=== PATIENT | female | born 1975 | race Two or more races ===

== ENCOUNTER 2021-01-21 10:24 | Outpatient (REF) | payer BC, SELFPAY ==
[2021-01-21 11:21] LABS: MANUAL DIFF FLAG NO
[2021-01-21 11:27] LABS: Basophils Percent Auto 0.3 % (0-2); Eosinophils Absolute Auto 0.1 X10*3/uL (0.0-0.4); Eosinophils Percent Auto 1.4 % (0-4); Hematocrit 39.5 % (37-47); Hemoglobin 12.4 g/dl (12.0-16.0); Imm Gran Abs Auto 0.02 X10*3/uL (0.00-0.03); Imm Gran Pct Auto 0.3 % (0.0-0.4); Lymphocytes Percent Auto 27.9 % (20-40); Mean Corpuscular HGB Conc 31.4 g/dl (31.0-35.0); Mean Corpuscular Volume 92.5 fL (80-98); Monocytes Absolute Auto 0.5 X10*3/uL (0.1-1.2); Monocytes Percent Auto 7.1 % (2-11); Neutrophils Absolute Auto 4.6 X10*3/uL (2.0-8.3); Platelet Count 368 X10*3/uL (160-400); Red Blood Count 4.27 X10*6/uL (4.20-5.50); Red Cell Distribution Width 13.5 % (11.0-16.0); White Blood Count 7.3 X10*3/uL (4.8-10.8)
[2021-01-21 11:38] LABS: Estimated Average Glucose 91 mg/dL; Hemoglobin A1c % 4.8 %
[2021-01-21 11:53] LABS: Alanine Aminotransferase 12 U/L (0-31); Albumin Level 4.3 g/dL (3.5-5.0); Alkaline Phosphatase 89 U/L (39-117); Anion Gap 11 (12-20); Aspartate Amino Transferase 18 U/L (5-31); Bilirubin Direct 0.2 mg/dL (0.0-0.5); Bilirubin Total 0.7 mg/dL (0.0-1.0); Blood Urea Nitrogen 20 mg/dL (9-16); Calcium 9.2 mg/dL (8.4-10.2); Carbon Dioxide 30 mmol/L (22-29); Chloride 105 mmol/L (96-108); Cholesterol 238 mg/dL; Estimated Glomerular Filt Rate > 60; Glucose Fasting 86 mg/dL (60-99); HDL Cholesterol 65 mg/dL; LDL Cholesterol Calculated 155 mg/dl; Potassium 4.9 mmol/L (3.3-5.1); Sodium 141 mmol/L (135-145); Total Protein 7.7 g/dL (6.5-8.0); Triglycerides 90 mg/dL
[2021-01-21 11:54] LABS: C Reactive Protein 0.64 mg/dL (< or = 0.50); Iron 86 mcg/dL (30-160); Percent Iron Saturation 28 % (15-50); Total Iron Binding Capacity 303 mcg/dL (228-428); Unsaturated Iron Binding 217 ug/dL
[2021-01-21 11:57] LABS: Rheumatoid Factor < 15.0 IU/mL (<15.0)
[2021-01-21 12:11] LABS: Erythrocyte Sedimentation Rate 23 MM/HR (0-20)
[2021-01-21 12:13] LABS: HIV AB/AG Nonreactive (Nonreactive); HIV Num 1 0.07 S/CO (0.00-0.99)
[2021-01-21 12:15] LABS: HBsAGNum1 0.12 S/CO (0.00-0.99); Hepatitis B Surface Antigen Negative (Negative); Thyroid Stimulating Hormone 2.09 uIU/mL (0.32-4.0); Vitamin D 25-OH Total 23.9 ng/mL (>30)
[2021-01-21 12:16] LABS: Syphilis Screen Nonreactive (Nonreactive)
[2021-01-21 12:19] LABS: HBS Num1 0.02 mIU/mL (0-7.99); ~Hepatitis B Surface Antibody NONREACTIVE (Nonreactive)
[2021-01-21 12:20] LABS: ~HepC Num1 0.13 S/CO (0.00-0.79); ~Hepatitis C Antibody Nonreactive (Nonreactive)
[2021-01-21 12:21] LABS: Ferritin 39 ng/mL (10-250)
[2021-01-21 12:26] LABS: Folate 17.3 ng/mL (> or = 4.0); Vitamin B12 332 pg/mL (200-900)
[2021-01-22 09:21] LABS: CT PCR NOT DETECTED (Not Detect.); NG PCR NOT DETECTED (Not Detect.)
[2021-01-22 15:52] LABS: Follicle Stimulating Hormone 101.6 mIU/mL; Lutenizing Hormone 69.1 mIU/mL
[2021-01-22 19:22] LABS: Anti Nuclear Antibody Screen NEGATIVE (NEGATIVE)
== END 2021-01-21 10:25 | disposition home or self-care (01) ==
LOC: HO.LAB 10:24
PROVIDERS: PCP Family Medicine; Visit Provider Internal Medicine
DX: R53.83 Other fatigue (principal); D64.9 Anemia, unspecified; K21.9 Gastro-esophageal reflux disease without esophagitis; K59.00 Constipation, unspecified; M79.604 Pain in right leg; M79.605 Pain in left leg
CPT/HCPCS: 36415; 80048; 80061; 80076; 82306; 82550; 82607; 82728; 82746; 83001; 83002; 83036; 83540; 84439; 84443; 85025; 85652; 86038; 86039; 86140; 86431; 86706; 86780; 86803; 87340; 87389; 87491; 87591

== ENCOUNTER 2021-02-15 13:12 | Outpatient (REF) | payer BC, SELFPAY ==
--- NOTE | ~2021-02-15 | XR_ITS ---
EXAMINATION: LEFT HIP COMPLETE. LUMBAR SPINE 2 VIEWS CLINICAL INFORMATION: Pain COMPARISON: 04/28/2016 TECHNIQUE: 2 views of the left hip. 2 views of the lumbar spine. FINDINGS: Left hip: No erosive change, fracture, dislocation or destructive process. Lumbar spine: No evidence of fracture or destructive process or alignment abnormality. Vertebral body heights are preserved. Incidental note is made of surgical clips in the right upper quadrant and overlying the pelvis. XR/XR lumbar spine 2-3V IMPRESSION: No acute abnormalities.
--- NOTE | ~2021-02-15 | XR_ITS ---
EXAMINATION: LEFT HIP COMPLETE. LUMBAR SPINE 2 VIEWS CLINICAL INFORMATION: Pain COMPARISON: 04/28/2016 TECHNIQUE: 2 views of the left hip. 2 views of the lumbar spine. FINDINGS: Left hip: No erosive change, fracture, dislocation or destructive process. Lumbar spine: No evidence of fracture or destructive process or alignment abnormality. Vertebral body heights are preserved. Incidental note is made of surgical clips in the right upper quadrant and overlying the pelvis. XR/XR hip LT min 2V IMPRESSION: No acute abnormalities.
== END 2021-02-15 13:13 | disposition home or self-care (01) ==
LOC: HO.XRAY 13:12
PROVIDERS: PCP Family Medicine; Visit Provider Family Medicine
DX: M54.42 Lumbago with sciatica, left side (principal)
CPT/HCPCS: 72100; 73502

== ENCOUNTER 2021-03-30 13:07 | Outpatient (REF) | payer BC, SELFPAY ==
[2021-03-30 15:53] LABS: TSH reflex Free T4 1.46 uIU/mL (0.32-4.0)
[2021-03-31 09:01] LABS: CT PCR NOT DETECTED (Not Detect.); NG PCR NOT DETECTED (Not Detect.)
[2021-03-31 12:07] LABS: Follicle Stimulating Hormone 43.4 mIU/mL; Lutenizing Hormone 44.3 mIU/mL; Prolactin 5.9 ng/mL
[2021-04-01 20:56] LABS: HPV mRNA E6/E7 rflx Not Detected (Not Detected)
== END 2021-03-30 13:08 | disposition home or self-care (01) ==
LOC: HO.LAB 13:07
PROVIDERS: PCP Family Medicine; Visit Provider Obstetrics & Gynecology
DX: Z01.419 Encounter for gynecological examination (general) (routine) without abnormal findings (principal); R10.2 Pelvic and perineal pain; N91.2 Amenorrhea, unspecified
CPT/HCPCS: 36415; 83001; 83002; 84146; 84443; 87491; 87591; 87624; 88142

== ENCOUNTER 2021-07-27 13:31 | Outpatient (REF) | payer BC, SELFPAY ==
--- NOTE | ~2021-07-27 | MM_ITS ---
EXAMINATION: MM SCREENING DIGITAL BREAST TOMOSYNTHESIS, BILATERAL CLINICAL INFORMATION: Screening. Asymptomatic. The lifetime risk of breast cancer based on the Tyrer-Cuzick Model is 5.6%. COMPARISON: Mammography: January 28, 2019 and studies dating back to December 04, 2014 TECHNIQUE: Digital breast tomosynthesis is performed in both the craniocaudal and mediolateral oblique views along with computer-aided detection (CAD). Synthesized 2D images are generated from the tomosynthesis. FINDINGS: The breasts are heterogeneously dense, which may obscure small masses (ACR BI-RADS breast composition Category c). There are no significant masses, abnormal calcifications, or other abnormalities. MM/MM tomosynthesis screening BI IMPRESSION: There are no significant changes from prior study. ASSESSMENT: BI-RADS 1: Negative RECOMMENDATION: Routine annual mammography screening. This patient's information was entered into a reminder system with a target due date for their next mammogram.
== END 2021-07-27 13:32 | disposition home or self-care (01) ==
LOC: HO.MAMMO 13:31
PROVIDERS: Visit Provider Obstetrics & Gynecology
DX: Z12.31 Encounter for screening mammogram for malignant neoplasm of breast (principal)
CPT/HCPCS: 77063; 77067

== ENCOUNTER 2022-05-16 12:59 | Outpatient (REF) | payer BC, SELFPAY ==
--- NOTE | ~2022-05-16 | XR_ITS ---
EXAMINATION: XR FOOT, LEFT CLINICAL INFORMATION: Pain in left foot. COMPARISON: None TECHNIQUE: AP, lateral, and oblique views of the left foot. FINDINGS: There is no visible acute fracture, dislocation or soft tissue abnormality. The joints is a maintained normal. The ankle mortise and subtalar joints are normal. There is a small calcaneal heel and retrocalcaneal enthesophytes. XR/XR foot LT min 3V IMPRESSION: Small retrocalcaneal and calcaneal heel enthesophytes. No visible acute fracture, dislocation or subluxation.
== END 2022-05-16 13:00 | disposition home or self-care (01) ==
LOC: HO.XRAY 12:59
PROVIDERS: PCP Family Medicine; Visit Provider Family Medicine
DX: M79.672 Pain in left foot (principal)
CPT/HCPCS: 73630

== ENCOUNTER 2022-06-23 06:10 | Outpatient (REF) | payer BC, SELFPAY ==
[2022-06-23 06:17] LABS: MANUAL DIFF FLAG NO
[2022-06-23 07:17] LABS: Basophils Percent Auto 0.3 % (0-2); Eosinophils Absolute Auto 0.1 X10*3/uL (0.0-0.4); Eosinophils Percent Auto 1.6 % (0-4); Hematocrit 38.5 % (37.0-47.0); Hemoglobin 12.2 g/dl (12.0-16.0); Imm Gran Abs Auto 0.01 X10*3/uL (0.00-0.03); Imm Gran Pct Auto 0.1 % (0.0-0.4); Lymphocytes Absolute Auto 2.1 X10*3/uL (1.2-4.9); Lymphocytes Percent Auto 29.7 % (20-40); Mean Corpuscular HGB Conc 31.7 g/dl (31.0-35.0); Mean Corpuscular Hemoglobin 29.3 pg (27.0-33.0); Mean Corpuscular Volume 92.3 fL (80.0-98.0); Mean Platelet Volume 9.7 fL (9.4-12.3); Monocytes Absolute Auto 0.5 X10*3/uL (0.1-1.2); Monocytes Percent Auto 7.5 % (2-11); Neutrophils Absolute Auto 4.2 x10*3/uL (2.0-8.3); Neutrophils Percent Auto 60.8 % (45-73); Platelet Count 389 X10*3/uL (160-400); Red Blood Count 4.17 X10*6/uL (4.20-5.50); Red Cell Distribution Width 13.9 % (11.0-16.0); White Blood Count 6.9 X10*3/uL (4.8-10.8)
[2022-06-23 07:22] LABS: Estimated Average Glucose 91 mg/dL; Hemoglobin A1c % 4.8 %
[2022-06-23 07:35] LABS: Alanine Aminotransferase 14 U/L (0-31); Albumin Level 4.3 g/dL (3.5-5.0); Alkaline Phosphatase 74 U/L (39-117); Anion Gap 15 (12-20); Aspartate Amino Transferase 18 U/L (5-31); Bilirubin Direct 0.2 mg/dL (0.0-0.5); Bilirubin Total 0.4 mg/dL (0.0-1.0); Blood Urea Nitrogen 22 mg/dL (9-16); Calcium 9.6 mg/dL (8.4-10.2); Carbon Dioxide 27 mmol/L (22-29); Chloride 106 mmol/L (96-108); Cholesterol 246 mg/dL; Estimated Glomerular Filt Rate > 60; Glucose Random 89 mg/dL (60-115); HDL Cholesterol 68 mg/dL; Iron 89 mcg/dL (30-160); LDL Cholesterol Calculated 164 mg/dl; Percent Iron Saturation 27 % (15-50); Potassium 4.7 mmol/L (3.3-5.1); Sodium 143 mmol/L (135-145); Total Iron Binding Capacity 324 mcg/dL (228-428); Total Protein 7.6 g/dL (6.5-8.0); Triglycerides 74 mg/dL; Unsaturated Iron Binding 235 ug/dL
[2022-06-23 07:51] LABS: ~HepC Num1 0.13 S/CO (0.00-0.79); ~Hepatitis C Antibody Nonreactive (Nonreactive)
[2022-06-23 07:52] LABS: HBS Num1 0.88 mIU/mL (0-7.99); HBsAGNum1 0.17 S/CO (0.00-0.99); HIV AB/AG Nonreactive (Nonreactive); HIV Num 1 0.06 S/CO (0.00-0.99); Hepatitis B Surface Antigen Negative (Negative); ~Hepatitis B Surface Antibody NONREACTIVE (Nonreactive)
[2022-06-23 07:59] LABS: Ferritin 35 ng/mL (10-250); Free T4 (Free Thyroxine) 1.16 ng/dL (0.71-1.85); Thyroid Stimulating Hormone 2.96 uIU/mL (0.32-4.0); Vitamin D 25-OH Total 32.9 ng/mL (>30)
[2022-06-23 08:09] LABS: Syphilis Screen Nonreactive (Nonreactive)
[2022-06-23 08:22] LABS: Folate 14.3 ng/mL (> or = 4.0); Vitamin B12 330 pg/mL (200-900)
[2022-06-23 11:59] LABS: CT PCR NOT DETECTED (Not Detect.); NG PCR NOT DETECTED (Not Detect.)
== END 2022-06-23 06:11 | disposition home or self-care (01) ==
LOC: HO.LAB 06:10
PROVIDERS: PCP Family Medicine; Visit Provider Family Medicine
DX: Z00.00 Encounter for general adult medical examination without abnormal findings (principal); Z11.3 Encounter for screening for infections with a predominantly sexual mode of transmission; Z11.4 Encounter for screening for human immunodeficiency virus [HIV]; D64.9 Anemia, unspecified
CPT/HCPCS: 80048; 80061; 80076; 82306; 82607; 82728; 82746; 83036; 83540; 84439; 84443; 85025; 86706; 86780; 86803; 87340; 87389; 87491; 87591

== ENCOUNTER 2022-07-31 13:11 | Outpatient (REF) | payer BC, SELFPAY ==
--- NOTE | ~2022-07-31 | MM_ITS ---
EXAMINATION: MM SCREENING DIGITAL BREAST TOMOSYNTHESIS, BILATERAL CLINICAL INFORMATION: Screening. Asymptomatic. The lifetime risk of breast cancer based on the Tyrer-Cuzick Model is 6%. COMPARISON: Mammography: 07/27/2021, 01/28/2019, 02/28/2017 TECHNIQUE: Digital breast tomosynthesis is performed in both the craniocaudal and mediolateral oblique views along with computer-aided detection (CAD). Synthesized 2D images are generated from the tomosynthesis. FINDINGS: There are scattered areas of fibroglandular density (ACR BI-RADS breast composition Category b). There are no significant masses, abnormal calcifications, or other abnormalities. There is biopsy clip marker again noted posterior upper right breast on MLO view. The axilla and skin contours are unremarkable. No significant changes from prior studies. MM/MM tomosynthesis screening BI IMPRESSION: No mammographic evidence of malignancy. ASSESSMENT: BI-RADS 1: Negative RECOMMENDATION: Routine annual mammography screening. This patient's information was entered into a reminder system with a target due date for their next mammogram.
== END 2022-07-31 13:12 | disposition home or self-care (01) ==
LOC: HO.MAMMO 13:11
PROVIDERS: PCP Family Medicine; Visit Provider Family Medicine
DX: Z12.31 Encounter for screening mammogram for malignant neoplasm of breast (principal)
CPT/HCPCS: 77063; 77067

== ENCOUNTER 2022-09-18 12:28 | Outpatient (REF) | payer BC, SELFPAY ==
--- NOTE | ~2022-09-18 | US_ITS ---
EXAMINATION: Noninvasive assessment of the bilateral lower extremities with ARTERIAL DUPLEX and ANKLE BRACHIAL INDICES (ABIs). CLINICAL INFORMATION: Peripheral vascular disease with bilateral lower extremity pain TECHNIQUE: Duplex Doppler techniques with waveform analysis and measurement of velocities in the bilateral common femoral, profunda femoris, superficial femoral, popliteal and tibial arteries were performed. COMPARISON: None FINDINGS: DIRECT DUPLEX DOPPLER FINDINGS: RIGHT LEG: Common femoral artery: 160 cm/s, phasicity: Triphasic Profunda femoris artery: 91 cm/s, phasicity: Triphasic Superficial femoral artery (proximal): 133 cm/s, phasicity: Triphasic Superficial femoral artery (mid): 119 cm/s, phasicity: Triphasic Superficial femoral artery (distal): 83.4 cm/s, phasicity: Triphasic Popliteal artery: 60.4 cm/s, phasicity: Triphasic Posterior tibial artery: 89.5 cm/s, phasicity: Triphasic Peroneal artery: 46.0 cm/s, phasicity: Triphasic LEFT LEG: Common femoral artery: 141 cm/s, phasicity: Triphasic Profunda femoris artery: 67.3 cm/s, phasicity: Triphasic Superficial femoral artery (proximal): 104 cm/s, phasicity: Triphasic Superficial femoral artery (mid): 76.2 cm/s, phasicity: Triphasic Superficial femoral artery (distal): 70.3 cm/s, phasicity: Triphasic Popliteal artery: 78.1 cm/s, phasicity: Triphasic Posterior tibial artery: 84.0 cm/s, phasicity: Triphasic Peroneal artery: 61.0 cm/s, phasicity: Triphasic US/US arterial duplex LE BI IMPRESSION: Normal duplex arterial ultrasound of the bilateral lower extremities. No significant arterial stenosis or occlusion
== END 2022-09-18 12:29 | disposition home or self-care (01) ==
LOC: HO.US 12:28
PROVIDERS: Visit Provider Family Medicine
DX: M79.604 Pain in right leg (principal); M79.605 Pain in left leg
CPT/HCPCS: 93925

== ENCOUNTER 2023-12-27 13:00 | Outpatient (REF) | payer MEDICAID, SELFPAY ==
--- NOTE | ~2023-12-27 | MM_ITS ---
EXAMINATION: MM SCREENING DIGITAL BREAST TOMOSYNTHESIS, BILATERAL CLINICAL INFORMATION: Screening. Asymptomatic. COMPARISON: Mammography: This study is compared with prior exams dating back to 2019. TECHNIQUE: Digital breast tomosynthesis is performed in both the craniocaudal and mediolateral oblique views along with computer-aided detection (CAD). Synthesized 2D images are generated from the tomosynthesis. FINDINGS: There are scattered areas of fibroglandular density (ACR BI-RADS breast composition Category b). There are no significant masses, abnormal calcifications, or other abnormalities. There is a tissue marker in the superior aspect of the right breast from prior benign percutaneous biopsy. MM/MM tomosynthesis screening BI IMPRESSION: No mammographic evidence of malignancy. ASSESSMENT: BI-RADS BI-RADS 2 - Benign Findings RECOMMENDATION: Routine annual mammography screening. 1 year F/U This examination should not preclude the clinical evaluation of a suspicious palpable abnormality. This patient's information was entered into a reminder system with a target due date for their next mammogram.
== END 2023-12-27 13:01 | disposition home or self-care (01) ==
LOC: HO.MAMMO 13:00
PROVIDERS: PCP Family Medicine; Visit Provider Family Medicine
DX: Z12.31 Encounter for screening mammogram for malignant neoplasm of breast (principal)
CPT/HCPCS: 77063; 77067

== ENCOUNTER → 2023-12-27 13:00 | Outpatient (BNV) | payer MEDICAID, SELFPAY | PROVIDERS: PCP Family Medicine; Visit Provider Radiology Diagnostic Radiology | DX: Z12.31 Encounter for screening mammogram for malignant neoplasm of breast (principal) | CPT/HCPCS: 77063; 77067 ==

== ENCOUNTER 2024-05-19 15:58 | Outpatient (REF) | payer MEDICAID, SELFPAY ==
--- NOTE | ~2024-05-19 | XR_ITS ---
EXAMINATION: XR ANKLE, RIGHT CLINICAL INFORMATION: Ankle pain and swelling COMPARISON: None available. TECHNIQUE: AP, lateral, and mortise views of the right ankle. FINDINGS: Medial soft tissue swelling. No fracture. The ankle mortise is preserved. No radiopaque foreign body. XR/XR ankle RT 2V IMPRESSION: Medial soft tissue swelling. No fracture.
== END 2024-05-19 15:59 | disposition home or self-care (01) ==
LOC: HO.HHCX 15:58
PROVIDERS: Visit Provider Nurse Practitioner Primary Care
DX: M79.671 Pain in right foot (principal); M25.571 Pain in right ankle and joints of right foot
CPT/HCPCS: 73600

== ENCOUNTER 2024-12-29 16:54 | Outpatient (REF) | payer MEDICAID, SELFPAY ==
--- OUTSIDE RECORDS SUMMARY | 2024-12-29 18:35 | XMS_ITS | Encounter Summary ---
Author Organization [employer] Address [address] [facility] [address] [place] [address] Care Team Providers Care Naval Engineer Name Role Phone Stefania Hunter Primary Care Provider + [phone] Reason for Visit * Reason Comments UTI Encounter Details Date Type Department Care Team ([facility] st Contact Info) Description 12/29/2024 3:00 PM EST Office Visit [facility] [address] [place] [address] [phone] Sahara Wall MD [address] [place] [address] Acute cystitis with hematuria (Primary Dx); Subcutaneous nodules; Dysuria Social History Tobacco Use Types Packs/Day Years Used Date Smoking Tobacco: Former Cigarettes Smokeless Tobacco: Never Tobacco Cessation:Counseling Given: Not Answered Comments Unknown Sex and Gender Information Value Date Recorded Sex Assigned at Female 09/04/2022 10:20 AM EDT Legal Sex Female 10:20 AM EDT Gender Identity Female 09/04/2022 10:20 AM EDT Sexual Orientation Straight 09/04/2022 10 :20 AM EDT documented as of this encounter Last Filed Vital Signs Vital Sign Reading Time Taken Comments Blood Pressure 112/76 12/29/2024 2:50 PM EST Pulse 73 12/29/2024 2:50 PM EST Temperature 36.7 ??C (98.1 ??F) 12/29/2024 2:50 PM ES T Respiratory Rate 15 12/29/2024 2:50 PM EST Oxygen Saturation - - Inhaled Oxygen Concentration - - Weight 67.4 kg (148 lb 9.6 oz) 12/29/2024 2:50 P M EST Height 157.5 cm (5' 2 ) 12/29/2024 2:50 PM EST Body Mass Index 27.18 12/29/2024 2:50 PM EST documented in this encounter Progress Notes * Sahara Wall MD - 12/29/2024 3:00 PM EST SUBJECTIVE: Alia Elizondo is a 49 y.o. year old female who presents for [facility] Center/UTI sxs . Denies recentillness, injury, or hospitalization. Acute Concerns: Patient here for evaluation of increased urinary frequency, dysuria, lower abdominal pain and post micturition dribbling x 1 day. Negative fever, chills, nausea or vaginal discharge. She has painful indurated lesions under the left knee for the past week. No fever no chills, no history of trauma. She occasionally kneels but usually uses a pillow her knees. Social History Social History Narrative Not on file Patient Active Problem List Diagnosis Anemia Chronic constipation Chronic headache disorder Cobalamin deficiency Fibromyositis Gastroesophageal reflux disease Recurrent major depression (CMS/HCC) Vitamin D deficiency Subcutaneous nodules Acute cystitis with hematuria No family history on file. Review of Systems Constitutional: Negative for chills, fatigue and fever. HENT: Negative for congestion, ear pain, nosebleeds, rhinorrhea, sinus pressure, sore throat and trouble swallowing. Eyes: Negative for pain and discharge. Respiratory: Negative for cough, chest tightness and shortness of breath. Cardiovascular: Negative for chest pain, palpitations and leg swelling. Gastrointestinal: Negative for abdominal pain, blood in stool, constipation, diarrhea and nausea. Endocrine: Negative for polydipsia and polyuria. Genitourinary: Positive for dysuria, frequency and urgency. Negative for genital sores, pelvic painand vaginal discharge. Musculoskeletal: Negative for back pain and neck pain. Skin: Negative for rash. Allergic/Immunologic: Negative for environmental allergies. Neurological: Negative for dizziness, seizures, weakness, light-headedness and headaches. Hematological: Negative for adenopathy. Psychiatric/Behavioral: Negative for agitation, behavioral problems, self-injury and suicidal ideas. OBJECTIVE: Vitals: 12/29/24 1450 BP: 112/76 Pulse: 73 Resp: 15 Temp: 98.1 ??F (36.7 ??C) Physical Exam HENT: Right Ear: Tympanic membrane and ear canal normal. Left Ear: Tympanic membrane and ear canal normal. Mouth/Throat: Mouth: Mucous membranes are moist. Pharynx: No oropharyngeal exudate or posterior oropharyngeal erythema. Eyes: Pupils: Pupils are equal, round, and reactive to light. Cardiovascular: Rate and Rhythm: Regular rhythm. Pulses: Normal pulses. Heart sounds: Normal heart sounds. No murmur heard. Pulmonary: Breath sounds: Normal breath sounds. Abdominal: General: Bowel sounds are normal. Palpations: Abdomen is soft. Tenderness: There is no abdominal tenderness. Musculoskeletal: General: Normal range of motion. Cervical back: Neck supple. Skin: General: Skin is warm. Findings: Lesion (Intubated, tender, 1 cm subcutaneous nodules on the left tibial tuberosity.) present. Neurological: General: No focal deficit present. Mental Status: She is alert and oriented to person, place, and time. Psychiatric: Mood and Affect: Mood normal. Behavior: Behavior normal. Office Visit on 12/29/2024 Component Date Value Ref Range Status Color, UA 12/29/2024 Yellow Final DARK YELLOW Clarity, UA 12/29/2024 Cloudy Final Glucose, UA 12/29/2024 Negative Final Bilirubin, UA 12/29/2024 Negative Final Ketones, UA 12/29/2024 Negative Final Spec Grav, UA 12/29/2024 1.025 Final Blood, UA 12/29/2024 Positive (A) Negative, None Detected Final LARGE pH, UA 12/29/2024 6.0 Final Protein, UA 12/29/2024 Trace Final 30 mg.dl Urobilinogen, UA 12/29/2024 0.2 Final Leukocytes, UA 12/29/2024 Moderate (A) Negative, Rare, Trace Final Nitrite, UA 12/29/2024 Positive (A) Negative, None Detected Final Problem List Items Addressed This Visit Acute cystitis with hematuria - Primary Advised regarding increase p.o. fluids, take Bactrim x 5 days and follow-up urine culture. Advised to call as needed if she develops vaginal discharge, may need clotrimazole Diflucan. Relevant Orders Culture, Urine, Routine Subcutaneous nodules Rule out erythema nodosum? It could be related to UTI, follow-up with PCP after antibiotics if theypersist Other Visit Diagnoses Dysuria Relevant Orders Culture, Urine, Routine POCT urinalysis dipstick manually resulted (Completed) Follow Up: Current Outpatient Medications on File Prior to Visit Medication Sig Dispense Refill hydrocortisone 1 % cream Apply topically if needed (itching). 1g As often as needed up to 6 times/d45 g 0 No current facility-administered medications on file prior to visit. documented in this encounter Miscellaneous Notes * Assessment & Plan Note - Sahara Wall MD - 12/29/2024 3:24 PM EST Associated Problem(s): Subcutaneous nodules Rule out erythema nodosum? It could be related to UTI, follow-up with PCP after antibiotics if theypersist * Assessment & Plan Note - Sahara Wall MD - 12/29/2024 3:23 PM EST Associated Problem(s): Acute cystitis with hematuria Advised regarding increase p.o. fluids, take Bactrim x 5 days and follow-up urine culture. Advised to call as needed if she develops vaginal discharge, may need clotrimazole Diflucan. documented in this encounter Plan of Treatment Scheduled Orders Name Type Priority Associated Diagnoses Orde r Schedule Culture, Urine, Routine Microbiology Routine Dysuria Ordered: 12/29/2024 Culture, Urine, Routine Microbiology Routine Acute cystitis with hematuria Expected: 12/29/2024 (Approximate), Expires: 12/29/2025 documented as of this encounter Procedures Procedure Name Priority Date/Time Associated Diagnosis Comments POCT URINALYSIS DIPSTICK Routine 12/29/2024 2:59 PM EST Dysuria documented in this encounter Results * (ABNORMAL) POCT urinalysis dipstick manually resulted (12/29/2024 2:59 PM EST) Color, UA Yellow Comment:DARK YELLOW Clarity, UA Cloudy Glucose, UA Negative Bilirubin, UA Negative Ketones, UA Negative Spec Grav, UA 1.025 Blood, UA Positive(A) Negative, None Detected Comment:LARGE pH, UA 6.0 Protein, UA Trace Comment:30 mg.dl Urobilinogen, UA 0.2 Leukocytes, UA Moderate(A) Negative, Rare, Trace Nitrite, UA Positive(A) Negative, None Detected Urine 12/29/2024 2:59 PM EST Sahara Wall MD POINT OF CARE TEST ENTER /EDIT ORDERABLES Final Result documented in this encounter Visit Diagnoses Diagnosis Acute cystitis with hematuria- Primary Subcutaneous nodules Localized superficial swelling, mass, or lump Dysuria documented in this encounter Care Teams Naval Engineer Relationship Specialty Start Date End Date Stefania Hunter DO [address] [place] [id number] PCP - General Family Medicine 11/05/18 documented as of this encounter
--- OUTSIDE RECORDS SUMMARY | 2024-12-29 18:35 | XMS_ITS | Encounter Summary ---
Author Organization [employer] Address [address] [facility] [address] [place] [address] Care Team Providers Care Employment Educational Coord Name Role Phone Stefania Hunter DO Primary Care Provider [phone] Encounter Details Date Type Department Care Team (Late st Contact Info) Description 08/03/2023 Abstract [facility] [address] [place] [address] Stefania Hunter DO [address] [place] [address] Social History Tobacco Use Types Packs/Day Years Used Date Smoking Tobacco: Never Assessed Comments Unknown Sex and Gender Information Value Date Recorded Sex Assigned at Female 09/04/2022 10:20 AM EDT Legal Sex Female 10:20 AM EDT Gender Identity Female 09/04/2022 10:20 AM EDT Sexual Orientation Straight 09/04/2022 10 :20 AM EDT documented as of this encounter Plan of Treatment Not on file documented as of this encounter Procedures Procedure Name Priority Date/Time Associated Diagnosis Comments HM PAP/HPV Routine 03/30/2021 documented in this encounter Results * Hm Pap Smear (03/30/2021) Pap Negative for intraephithelial lesion or malignancy Negative for intraephithelial lesion or malignancy, Other HPV Undetected us Historical Provider HEALTH MAINTENANCE Final Result documented in this encounter Visit Diagnoses Not on filedocumented in this encounter Care Teams Employment Educational Coord Relationship Specialty Start Date End Date Stefania Hunter DO [address] [place] [address] PCP - General Family Medicine 11/05/18 documented as of this encounter
--- OUTSIDE RECORDS SUMMARY | 2024-12-29 18:35 | XMS_ITS | Encounter Summary ---
Author Organization [employer] Address [address] [place] [address] [address] [place] [address] Care Team Providers Care Tester Armature Or Fields Name Role Phone Stefania Hunter DO Primary Care Provider + [phone] Reason for Visit * Reason Onset Date Comments No Show 12/03/2024 Encounter Details Date Type Department Care Team ([facility] st Contact Info) Description 12/03/2024 Telephone [facility] [address] [place], [place] [phone] Stefania Hunter DO [address] [place], [place] [phone] No Show Social History Tobacco Use Types Packs/Day Years Used Date Smoking Tobacco: Former Cigarettes Smokeless Tobacco: Never Comments Unknown Sex and Gender Information Value Date Recorded Sex Assigned at Female 09/04/2022 10:20 AM EDT Legal Sex Female 10:20 AM EDT Gender Identity Female 09/04/2022 10:20 AM EDT Sexual Orientation Straight 09/04/2022 10 :20 AM EDT documented as of this encounter Miscellaneous Notes * Telephone Encounter - Miguelina Landin - 12/03/2024 10:35 AM EST Pt no showed to appt on 12/03/24 documented in this encounter Plan of Treatment Not on file documented as of this encounter Visit Diagnoses Not on filedocumented in this encounter Care Teams Tester Armature Or Fields Relationship Specialty Start Date End Date Stefania Hunter DO [address] [place], [place] [phone] PCP - General Family Medicine 11/05/18 documented as of this encounter
--- OUTSIDE RECORDS SUMMARY | 2024-12-29 18:35 | XMS_ITS | Clinical Summary ---
Author Organization [employer] Address [address] [facility] [address] [place] [address] Care Team Providers Care Bench Machine Operator Name Role Phone Stefania Hunter Primary Care Provider Allergies Active Allergy Reactions Criticality Noted Date Comments Morphine 08/28/2013 Penicillin V Rash Low 11/08/2010 Medications hydrocortisone 1 % creamIndication s:Right foot pain Apply topically if needed (itching). 1g As often as needed up to 6 times/d 45 g 4 Active sulfamethoxazol e-trimethoprim (Bactrim DS) 800-160 MG tablet Take 1 tablet by mouth 2 times daily for 5 days. 10 tablet 5 01/04/20 25 Active Active Problems Problem Noted Date Diagnosed Date Subcutaneous nodules 12/29/2024 Assessment & Plan (12/29/2024 3:46 PM EST): Rule out erythema nodosum? It could be related to UTI, follow-up with PCP after antibiotics if they persist Acute cystitis with hematuria 12/29/2024 Assessment & Plan (12/29/2024 3:23 PM EST): Advised regarding increase p.o. fluids, take Bactrim x 5 days and follow-up urine culture. Advised to call as needed if she develops vaginal discharge, may need clotrimazole Diflucan. 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 10/09/2023 Gastroesophageal reflux disease 01/03/2016 10/09/2023 Recurrent major depression 01/03/201610/09 Vitamin D deficiency 01/03/2016 10/09/2023 Encounters Date Type Department Care Team Description 12/29/2024 3:00 PM EST Office Visit [facility] [address] [place] [phone] Sahara Wall MD Acute cystitis with hematuria (Primary Dx); Subcutaneous nodules; Dysuria 12/29/2024 Telephone [facility] [address] [place] [phone] Stefania Hunter, Nurse Triage 12/03/[address] [phone] Stefania Hunter, DO No Show 10/22/[address] [phone] Stefania Hunter, Nurse Triage from Last 3 Months Immunizations Name Administration Dates Next Due Influenza injectable quadriv alent IIV4 with preservative 07/25/2018,09/04/2017,01/03/2016 Influenza injectable quadriv alent preservative free 08/20/2019,12/08/2014 Influenza, IIV3, injectable 10/20/2009 Influenza, Split (incl. mikayla fied surface antigen) 12/03/2013 Pfizer Covid-19 Vaccine 12+ 09/11/2021,,02/12/2021 TD (adult), 2 Lf tetanus tox oid, preservative free, adsorbed 06/26/2022 Tdap 10/20/2009 Social History Tobacco Use Types Packs/Day Years Used Date Smoking Tobacco: Former Cigarettes Smokeless Tobacco: Never Tobacco Cessation:Counseling Given: Not Answered Comments Unknown Sex and Gender Information Value Date Recorded Sex Assigned at Female 09/04/2022 10:20 AM EDT Legal Sex Female 10:20 AM EDT Gender Identity Female 09/04/2022 10:20 AM EDT Sexual Orientation Straight 09/04/2022 10 :20 AM EDT Last Filed Vital Signs Vital Sign Reading [...] Mass Index 27.18 12/29/2024 2:50 PM EST Plan of Treatment Health Maintenance Due Date Last Done Comments CT Colonography 1973 Colonoscopy 1973 Colorectal Cancer Screening 1973 Depression Screening 1973 FIT DNA/Cologuard 1973 FIT 1973 FOBT 1973 SDOH Screening 1973 Sigmoidoscopy 1973 Alcohol/Substance Use Screening 1985 Family Planning (PISQ) 1988 Hepatitis B Vaccines (1 of 3 - 19+ 3-dose series) 1992 Pneumococcal Vaccine: 50+ Years (1 of 1 - PCV) 2023 Zoster Vaccines (1 of 2) 2023 Pap Smear 03/30/2024 03/30/2021 COVID-19 Vaccine ( season) 2024 09/11/2021, 03/05/2021, 02/12/2021 Influenza Vaccine (#1) 2024 9, 07/25/2018, 09/04/2017, Additional history exists Mammogram 12/27/2025 12/27/2023, 07/07, 01/29/2019 Tobacco Screening 12/29/2025 12/29/2024 Cervical Cancer Screening 03/30/2026 HPV/Cotest 03/30/2026 03/30/2021, 03/06, 03/30/2021, Additional history exists DTaP/Tdap/Td Vaccines (3 - Td or Tdap) 06/26/2032 06/26/2022, 10/20/2009 RSV Patients and Patients Aged 60 years or older (1 - 1-dose 75+ series) 2048 HIV Screening Completed 06/23/2022, 01/21/2021 Hepatitis C Screening Completed 06/23/2022, 021 HIB Vaccines Aged Out No longer eligi ble based on patient's age to complete this topic HPV Vaccines Aged Out No longer eligi ble based on patient's age to complete this topic Hepatitis A Vaccines Aged Out No long er eligible based on patient's age to complete this topic IPV Vaccines Aged Out No longer eligi ble based on patient's age to complete this topic Meningococcal Vaccine Aged Out No lizzie ad eligible based on patient's age to complete this topic RSV under 20 months Aged Out No longe r eligible based on patient's age to complete this topic Rotavirus Vaccines Aged Out No longer eligible based on patient's age to complete this topic Procedures Procedure Name Priority Date/Time Associated Diagnosis Comments POCT URINALYSIS DIPSTICK Routine 12/29/2024 2:59 PM EST Dysuria BI MAMMOGRAM SCREENING TOMOSYNTHESIS BILATERAL Routine 12/27/2023 1:20 PM EST [facility] HISTORICAL HEPATITIS C ANTIBODY RFLX Routine 06/23/2022 6:14 AM EDT [facility] HISTORICAL HEPATITIS B SURFACE ANTIBODY Routine 06/23/2022 6:14 AM EDT PAP/HPV Routine 03/30/2021 from Last 3 Months or Most Recently Relevant to Health Maintenance Results * (ABNORMAL) POCT urinalysis dipstick manually [...] None Detected Urine 12/29/2024 2:59 PM EST us Sahara Wall MD POINT OF CARE TEST ENTER /EDIT ORDERABLES Final Result * BI Mammogram Screening Tomosynthesis Bilateral (12/27/2023 1:20 PM EST) Anatomical Region Laterality Modality Breast Bilateral Mammography 12/27/2023 1:20 PM EST Narrative 01/20/2024 7:59 AM EDT ? [facility] ? [address] ?[place] [address] ? Mammography Report ? Signed ? Patient: Alia Elizondo ?MR#: [id number] ?? 62 ? : 1975 ?Acct:[id number] ? Age/Sex: 48 / F ?ADM Date: 12/27/23 ? Loc: HO.MAMMO ? Attending Dr: Stefania Hunter DO ? Ordering Physician: Stefania Hunter DO ?Results: 2B ?? enign Findings ? Date of Service: 12/27/23 ?Follow Up: 1 Year From Orig ?? inal Mammogram ? Procedure(s): MM tomosynthesis screening BI ?? Accession Number(s): [id number] ? cc: Stefania Hunter January DO ? EXAMINATION: ?? MM SCREENING DIGITAL BREAST TOMOSYNTHESIS, BILATERAL ? CLINICAL INFORMATION: ? Screening. Asymptomatic. ? COMPARISON: ?? Mammography: This study is compared with prior exams dating back to ?? 2019. ? TECHNIQUE: ?? Digital breast tomosynthesis is performed in both the craniocaudal and ?? mediolateral oblique views along with computer-aided detection (CAD). ?? Synthesized 2D images are generated from the tomosynthesis. ? FINDINGS: ?? There are scattered areas of fibroglandular density (ACR BI-RADS breast ?? composition Category b). ? There are no significant masses, abnormal calcifications, or other ?? abnormalities. ? There is a tissue marker in the superior aspect of the right breast ?? from prior benign percutaneous biopsy. ? MM/MM tomosynthesis screening BI ?? IMPRESSION: ?? No mammographic evidence of malignancy. ? ASSESSMENT: ? BI-RADS BI-RADS 2 - Benign Findings ? RECOMMENDATION: ?? Routine annual mammography screening. ? 1 year F/U ? This examination should not preclude the clinical evaluation of a ?? suspicious palpable abnormality. ? This patient's information was entered into a reminder system with a ?? target due date for their next mammogram. ? Dictated By: ?Brooklynn Edgar MD ? Signed By: ?<Electronically signed by Brooklynn Edgar MD in OV> ? 01/20/24 0756 ? DD/ 1320 ? TD/TT: ? Strategic Marketing Manager: ? Procedure Note Melia, Mony - 01/21/2024 [facility] [facility] [address] [place] [address] [place] [address] Mammography Report Signed Patient: Alia Elizondo#: [id number] : 1975Acct:[id number] Age/Sex: 48 / FADM Date: 12/27/23 Loc: HO.MAMMO Attending Dr: Stefania Hunter DO Ordering Physician: Stefania Hunterults: 2B enign Findings Date of Service: 12/27/23Follow Up: 1 Year From Orig inal Mammogram Procedure(s): MM tomosynthesis screening BI Accession Number(s): [id number] cc: Stefania Hunter DO EXAMINATION: MM SCREENING DIGITAL BREAST TOMOSYNTHESIS, BILATERAL CLINICAL INFORMATION: Screening. Asymptomatic. COMPARISON: Mammography: This study is compared with prior exams dating back to 2019. TECHNIQUE: Digital breast tomosynthesis is performed in both the craniocaudal and mediolateral oblique views along with computer-aided detection (CAD). Synthesized 2D images are generated from the tomosynthesis. FINDINGS: There are scattered areas of fibroglandular density (ACR BI-RADS breast composition Category b). There are no significant masses, abnormal calcifications, or other abnormalities. There is a tissue marker in the superior aspect of the right breast from prior benign percutaneous biopsy. MM/MM tomosynthesis screening BI IMPRESSION: No mammographic evidence of malignancy. ASSESSMENT: BI-RADS BI-RADS 2 - Benign Findings RECOMMENDATION: Routine annual mammography screening. 1 year F/U This examination should not preclude the clinical evaluation of a suspicious palpable abnormality. This patient's information was entered into a reminder system with a target due date for their next mammogram. Dictated By: Brooklynn Edgar MD Signed By: <Electronically signed by Brooklynn Edgar MD in OV> 01/20/24 0756 DD/ 1320 TD/TT: Strategic Marketing Manager: Stefania Hunter DO IMG BI PROCEDURES Final Resu lt * HEPATITIS B SURFACE ANTIBODY (06/23/2022 6:14 AM EDT) Hepatitis B Surface Antibody NONREACTIVE Nonreactive [facility] Comment:Nonreactive: < 8.00 mIU/mL Hepatitis B Surface Antigen Negative Negative [facility] HIV AB/AG Nonreactive Nonreactive [facility] Comment: HIV-1 p24 Ag and/or HIV-1/HIV-2 Ab not detected. ?? A test result that is nonreactive does not exclude the possibility of exposure to or infection with HIV-1 and/or HIV-2. Nonreactive results in this assay for individuals with prior exposure to HIV-1 and/or HIV-2 may be due to antigen and antibody levels that are below the limit of detection of this assay. ?? [facility] HIV Ag/Ab Combo assay result and supplemental assay results should be interpreted in conjunction with the patient's clinical presentation, history and other laboratory results. ??If the results are inconsistent with clinical evidence, additional testing is suggested to confirm the result. 06/23/2022 6:14 AM EDT Stefania Elsa DO HISTORICAL/NON ORDERABLE LAB S Final Result Performing Organization Address [facility] Phone Number [facility] [address] * HEPATITIS C ANTIBODY RFLX (06/23/2022 6:14 AM EDT) Pathologist [facility] Hepatitis C Antibody Nonreactive Nonreactive [facility] Comment: Antibodies to HCV not detected; does not exclude early acute HCV infection. 06/23/2022 6:14 AM EDT Stefania Hunter DO HISTORICAL/NON ORDERABLE LAB S Final Result Performing Organization Address [facility] Phone Number [facility] [address] [place] [address], * Hm Pap Smear (03/30/2021) Pathologist [facility] Pap Negative for intraephithelial lesion or malignancy Negative for intraephithelial lesion or malignancy, Other HPV Undetected Historical Provider MD HEALTH MAINTENANCE Final Result from Last 3 Months or Most Recently Relevant to Health Maintenance [email or web address] Care Teams Bench Machine Operator Relationship Specialty Start Date End Date Stefania Hunter DO [address] [place] [phone] PCP - General Family Medicine 11/05/18
--- OUTSIDE RECORDS SUMMARY | 2024-12-29 18:35 | XMS_ITS | Encounter Summary ---
Author Organization [employer] Address [address] [facility] [address] [place] [address] Care Team Providers Care Head Of Global Strategic Partnerships Name Role Phone Stefania Hunter DO Primary Care Provider [phone] Reason for Visit * Reason Onset Date Comments Nurse Triage 12/29/2024 Encounter Details Date Type Department Care Team ([facility] st Contact Info) Description 12/29/2024 Telephone [facility] [address] [place], [place] [phone] Stefania Hunter DO [address] [place] [address] Nurse Triage Social History Tobacco Use Types Packs/Day Years [...] encounter Miscellaneous Notes * Telephone Encounter - Gris Seay RN - 12/29/2024 10:35 AM EST Called pt. Via S paraprofessional interpreter [phone] Noel. Pt. States that she has been having burning sensation this am when urinating and when pt. Was done she had sensation of having to continue urinating. Nofever. Advised that [facility] walk in is available today after 1pm. Advised pt. That she will be seen in order of arrival and there may be a wait depending on order of pt's arrival and any urgent needs. Ptstates understanding and will go to walk in this afternoon. Hours for afternoon given to pt. Protocol Used: Urination Pain - Female (Adult) Protocol-Based Disposition: See in Office or Video Visit Today- after 1pm in walk in at [facility]. Video visit offer not recorded Positive Triage Question: * Painful urination AND EITHER frequency or urgency * All higher-acuity triage questions were negative Care Advice Discussed: * Reassurance and Education - Possible Urine Infection * Drink Extra Fluids * Warm Saline Sitz Baths - Twice Daily for Urination Pain * Telephone Encounter - Silvina Diez - 12/29/2024 10:22 AM EST Symptoms: Abdominal Pain - Female - Not , Urine Symptoms Outcome: Schedule an urgent appointment (within 4 hours) or talk to a nurse or provider soon Reason: Pain when passing urine (peeing) The caller accepted this outcome. [phone] german * documented in this encounter Plan of Treatment Not on file documented as of this encounter Visit Diagnoses Not on filedocumented in this encounter Care Teams Head Of Global Strategic Partnerships Relationship Specialty Start Date End Date Stefania Hunter DO [address] [place] [address] PCP - General Family Medicine 11/05/18 documented as of this encounter
--- OUTSIDE RECORDS SUMMARY | 2024-12-29 18:35 | XMS_ITS | Encounter Summary ---
Author Organization [employer] Address [address] [place] [address] 7t [place] [address] Care Team Providers Care Engineering Technology Instructor Name Role Phone Stefania Hunter DO Primary Care Provider [phone] Reason for Visit * Reason Onset Date Comments Appointment Request 05/20/2024 Encounter Details Date Type Department Care Team ([facility] st Contact Info) Description 05/20/2024 Telephone [facility] [address] [place], [place] [phone] Stefania Hunter DO [address] [place] [address] Appointment Request Social History Tobacco Use Types Packs/Day Years [...] encounter Miscellaneous Notes * Telephone Encounter - Andrew Colon - 05/20/2024 8:09 AM EDT Tc from pt requesting to r/s appt for routine check up on 01/25/24 documented in this encounter Plan of Treatment Not on file documented as of this encounter Visit Diagnoses Not on filedocumented in this encounter Care Teams Engineering Technology Instructor Relationship Specialty Start Date End Date Stefania Hunter DO [address] [place] [address] PCP - General Family Medicine 11/05/18 documented as of this encounter
--- OUTSIDE RECORDS SUMMARY | 2024-12-29 18:35 | XMS_ITS | Encounter Summary ---
Author Organization [employer] Address [address] [facility] [address] [place] [address] Care Team Providers Care Personnel Supervisor Name Role Phone Stefania Hunter DO Primary Care Provider [phone] Reason for Visit * Reason Onset Date Comments Appointment Request 11/08/2023 Encounter Details Date Type Department Care Team ([facility] st Contact Info) Description 11/08/[address] [facility] [address] [place] [address] Stefania Hunter DO [address] [place] [address] Appointment Request Social History Tobacco Use Types [...] encounter Miscellaneous Notes * Telephone Encounter - Allison Abraham - 11/08/2023 1:45 PM EST Tc from pt requesting an appointment with PCP. Would like to test for breast cancer as well. Please contact pt at [phone] documented in this encounter Plan of Treatment Not on file documented as of this encounter Visit Diagnoses Not on filedocumented in this encounter Care Teams Personnel Supervisor Relationship Specialty Start Date End Date Stefania Hunter DO [address] [place] [address] PCP - General Family Medicine 11/05/18 documented as of this encounter
== END 2024-12-29 16:55 | disposition home or self-care (01) ==
LOC: HO.HHCLNP 16:54
PROVIDERS: Visit Provider Internal Medicine
DX: R30.0 Dysuria (principal)
CPT/HCPCS: 87086; 87088; 87186

== ENCOUNTER 2025-02-04 18:15 | Outpatient (REF) | payer MEDICAID, SELFPAY ==
--- OUTSIDE RECORDS SUMMARY | 2025-02-04 18:20 | XMS_ITS | Encounter Summary ---
Author Organization [employer] Address [address] [facility] [address]t [place] [address] Care Team Providers Care Aquatic Instructor Name Role Phone Stefania Hunter DO Primary Care Provider [phone] Encounter Details Date Type Department Care Team (Latest Contact Info) Description 02/04/2025 Travel Social History Tobacco Use Types Packs/Day Years Used Date Smoking Tobacco: Former Cigarettes Smokeless Tobacco: Never Comments Unknown Sex and Gender Information Value Date Recorded Sex Assigned at Female 09/04/2022 10:20 AM EDT Legal Sex Female 10:20 AM EDT Gender Identity Female 09/04/2022 10:20 AM EDT Sexual Orientation Straight 09/04/2022 10 :20 AM EDT documented as of this encounter Plan of Treatment Upcoming Encounters Date Type Department Care Team (Late st Contact Info) Description 04/06/2025 9:15 AM EDT Office Visit [facility] [address] [place] [address] Kalyani Browne MD [address] [place] [address] documented as of this encounter Visit Diagnoses Not on filedocumented in this encounter Care Teams Aquatic Instructor Relationship Specialty Start Date End Date Stefania Hunter DO [address] [place] [phone] PCP - General Family Medicine 11/05/18 documented as of this encounter
--- OUTSIDE RECORDS SUMMARY | 2025-02-04 18:20 | XMS_ITS | Clinical Summary ---
Author Organization [employer] Address [address] [facility] 7t [place] [address] Care Team Providers Care Hydrogen Power Plant Engineer Name Role Phone Stefania Hunter Primary Care Provider Allergies Active Allergy Reactions Criticality Noted Date Comments Morphine 08/28/2013 Penicillin V Rash Low 11/08/2010 Medications hydrocortisone 1 % creamIndication s:Right foot pain Apply topically if needed (itching). 1g As often as needed up to 6 times/d 45 g 4 Active nitrofurantoin, macrocrystal-mo nohydrate, (Macrobid) 100 MG capsuleIndicati ons:Acute urinary tract infection Take 1 capsule (100 mg) by mouth 2 times daily for 5 days. 10 capsule 5 02/10/20 25 Active Active Problems Problem Noted Date Diagnosed Date Acute urinary tract infection 02/04/2025 Assessment & Plan (02/04/2025 2:26 PM EDT): Likely acute UTI based on history, exam and urine dip. No clinical evidence of acute abdomen or pyelonephritis. Denies antibiotic use in the past 90 days. Allergies reviewed. -Urinalysis and urine culture sent to the lab -Empiric antibiotics started, nitrofurantoin, macrocrystal-monohydrate, (Macrobid) 100 MG -Potential adverse effects of the medication reviewed -Discussed strategies to prevent future infections: Increase fluids. Urinate after sex. Avoid bladder irritants. -Report fever, chills, worsening symptoms or abdominal/flank pain Subcutaneous nodules 12/29/2024 Assessment & Plan (12/29/2024 [...] Encounters Date Type Department Care Team Description 02/04/2025 2:40 PM EDT Office Visit [facility] [address] [place] [phone] Angella Montiel MD Acute urinary tract infection 02/04/2025 Travel 01/29/2025 Telephone [facility] [address] [place] [phone] Stefania Hunter DO Nurse Triage 01/19/2025 Telephone [facility] [address] [place] [address] Stefania Hunter DO Med Refill 01/16/2025 Population Health Risk Score [facility] Department [address] [phone] Provider, Population Health Generic 01/13/2025 Telephone [facility] [address] [place] [phone] Stefania Hunter DO Nurse Triage 01/01/2025 Telephone [facility] [address] [place] [address] Stefania Hunter DO Results 01/01/2025 Telephone [facility] [address] [place] [address] Sahara Wall MD Results 12/31/2024 Telephone [facility] [address] [place] [phone] Lucina Roach RN 12/29/2024 3:00 PM EST Office Visit [facility] [address] [place] [phone] Sahara Wall MD Acute cystitis with hematuria (Primary Dx); Subcutaneous nodules; Dysuria 12/29/2024 Telephone [facility] [address] [place] [address] Stefania Hunter DO Nurse Triage 12/03/[address] [address] Stefania Hunter, No Show from Last 3 Months Immunizations Name Administration [...] Sign Reading Time Taken Comments Blood Pressure 123/79 02/04/2025 2:12 PM EDT Pulse 93 02/04/2025 2:12 PM EDT Temperature 37.7 ??C (99.8 ??F) 02/04/2025 2:12 PM ED T Respiratory Rate 16 02/04/2025 2:12 PM EDT Oxygen Saturation 100% 02/04/2025 2:12 PM EDT Inhaled Oxygen Concentration - - Weight 67.5 kg (148 lb 12.8 oz) 02/04/2025 2:12 PM EDT Height 157.5 cm (5' 2 ) 02/04/2025 2:12 PM EDT Body Mass Index 27.22 02/04/2025 2:12 PM EDT Plan of Treatment Upcoming Encounters Date Type Department Care Team (Late st Contact Info) Description 04/06/2025 9:15 AM EDT Office Visit [facility] [address] [place], [place] [phone] Kalyani Browne MD [address] [place], [place] [phone] Health Maintenance Due Date Last Done Comments [...] 09/04/2017, Additional history exists Mammogram 12/27/2025 12/27/2023, 09/2 04/2022, 01/29/2019 Tobacco Screening 12/29/2025 12/29/2024 Cervical Cancer [...] Associated Diagnosis Comments POCT URINALYSIS DIPSTICK Routine 02/04/2025 2:48 PM EDT Acute urinary tract infection CULTURE, URINE, ROUTINE Routine 12/29/2024 3:00 PM EST Dysuria POCT URINALYSIS DIPSTICK Routine 12/29/2024 2:59 PM EST Dysuria BI MAMMOGRAM SCREENING TOMOSYNTHESIS BILATERAL Routine 12/27/2023 1:20 PM EST ZZZ HISTORICAL HEPATITIS C ANTIBODY RFLX Routine 06/23/2022 6:14 AM EDT ZZZ HISTORICAL HEPATITIS B SURFACE ANTIBODY Routine 06/23/2022 6:14 AM EDT HM PAP/HPV Routine 03/30/2021 from Last 3 Months or Most Recently Relevant to Health Maintenance Results * (ABNORMAL) POCT urinalysis dipstick manually resulted (02/04/2025 2:48 PM EDT) Only the most recent of2 resultswithin the time period is included. Color, UA Yellow Clarity, UA Cloudy Glucose, UA Negative Bilirubin, UA Negative Ketones, UA Negative Spec Grav, UA 1.025 Blood, UA Positive(A) Negative, None Detected Comment:moderate pH, UA 5.5 Protein, UA Trace Urobilinogen, UA 0.2 Leukocytes, UA Negative Negative, Rare, Trace Nitrite, UA Negative Negative, None Detected Appearance, UA cloudy QC Media Lot # [id number] Lot# Expiration Date 416, Urine 02/04/2025 2:48 PM EDT Angella Montiel MD POINT OF CARE TEST ENTER/E DIT ORDERABLES Final Result * Culture, Urine, Routine (12/29/2024 3:00 PM EST) Urine Urine specimen obtained by clean catch procedure / Unknown 12/29/2024 3:00 PM EST 12/29/2024 4:55 PM EST Comment:UACC Narrative [facility] - 12/31/2024 7:45 AM EST Escherichia coli Quant > 100,000 cfu/mL Escherichia coli: Ampicillin >=32(R) Escherichia coli: Cefazolin (Urine) 4(S) Escherichia coli: Cefepime <=0.12(S) Escherichia coli: Ceftriaxone <=0.25(S) Escherichia coli: Ciprofloxacin <=0.06(S) Escherichia coli: Gentamicin <=1(S) Escherichia coli: Nitrofurantoin <=16(S) Escherichia coli: Trimethoprim/Sulfamethoxazole <=20(S) Specimen Source: Urine clean catch Sahara Wall MD LAB MICROBIOLOGY - [facility] AL ORDERABLES Final Result [facility] [address] [place] [phone] * BI Mammogram Screening Tomosynthesis Bilateral (12/27/2023 1:20 PM EST) Anatomical Region Laterality Modality Breast Bilateral Mammography 12/27/2023 1:20 PM EST Narrative 01/20/2024 7:59 AM EDT ? [facility] ? [address] ?[place] [address] ? Mammography Report ? Signed ? Patient: Mikhail,Alia ?MR#: [id number] ?? 62 ? : 1975 ?Acct:[id number] ? Age/Sex: 48 / F ?ADM Date: 12/27/23 ? Loc: HO.MAMMO ? Attending Dr: Stefania Hunter DO ? Ordering Physician: Stefania Hunter DO ?Results: 2B ?? enign Findings ? Date of Service: 12/27/23 ?Follow Up: 1 Year From Orig ?? inal Mammogram ? Procedure(s): MM tomosynthesis screening BI ?? Accession Number(s): [id number] ? cc: Stefania Hunter DO ? EXAMINATION: ?? MM SCREENING DIGITAL [...] 0756 ? DD/ 1320 ? TD/TT: ? Electric Switch Tester: ? Procedure Note Melia, Image - 01/21/2024 [facility] [address] [place] [address] Mammography Report Signed Patient: Alia ElizondoMR#: [id number] 62 : 1975Acct:[id number] Age/Sex: 48 / FADM Date: 12/27/23 Loc: HO.MAMMO Attending Dr: Stefania Hunter DO Ordering Physician: Stefania Hunterults: 2B enign Findings Date of Service: 12/27/23Follow Up: 1 Year From Orig inal Mammogram Procedure(s): MM tomosynthesis screening BI Accession Number(s): [id number] cc: Stefania Hunter DO EXAMINATION: MM SCREENING [...] in OV> 01/20/24 0756 DD/ 1320 TD/TT: Electric Switch Tester: us Stefania Hunter DO IMG BI PROCEDURES Final Resu lt * HEPATITIS B SURFACE ANTIBODY (06/23/2022 6:14 AM EDT) Hepatitis B Surface Antibody NONREACTIVE Nonreactive [facility] Comment:Nonreactive: < 8.00 mIU/mL Hepatitis B Surface Antigen Negative Negative [facility] HIV AB/AG Nonreactive Nonreactive [facility] [...] detection of this assay. ?? The [employer] Trueing Machine Operator HIV Ag/Ab Combo assay result and supplemental assay results should be interpreted in conjunction with the patient's clinical presentation, history and other laboratory results. ??If the results are inconsistent with clinical evidence, additional testing is suggested to confirm the result. 06/23/2022 6:14 AM EDT Stefania Elsa DO HISTORICAL/NON ORDERABLE LAB S Final Result Performing Organization Address [facility]/ZIP Co de Phone Number [facility] [address] [place] [address], * HEPATITIS C ANTIBODY RFLX (06/23/2022 6:14 AM EDT) Hepatitis C Antibody Nonreactive Nonreactive [facility] Comment: Antibodies to HCV not detected; does not exclude early acute HCV infection. 06/23/2022 6:14 AM EDT Stefania Hunter DO HISTORICAL/NON ORDERABLE LAB S Final Result Performing Organization Address [facility] de Phone Number [facility] [address] [place] [address], * Hm Pap Smear (03/30/2021) Pap Negative for intraephithelial lesion or malignancy Negative for intraephithelial lesion or malignancy, Other HPV Undetected Historical Provider MD HEALTH MAINTENANCE Final Result from Last 3 Months or Most Recently Relevant to Health Maintenance Insurance [employer] Care Teams Hydrogen Power Plant Engineer Relationship Specialty Start Date End Date Stefania Hunter DO [address] [place] [phone] PCP - General Family Medicine 11/05/18
--- OUTSIDE RECORDS SUMMARY | 2025-02-04 18:20 | XMS_ITS | Encounter Summary ---
Author Organization [employer] Address [address] [facility] 7t [place] [address] Care Team Providers Care Jewelry Casting Model Maker Name Role Phone Stefania Hunter DO Primary Care Provider [phone] Reason for Visit * Reason Onset Date Comments Nurse Triage 01/13/2025 Encounter Details Date Type Department Care Team (Late st Contact Info) Description 01/13/2025 Telephone [facility] [address] [place], [place] [phone] Stefania Hunter DO [address] [place] [address] Nurse Triage Social History Tobacco Use Types [...] encounter Miscellaneous Notes * Telephone Encounter - Silvina Diez - 01/13/2025 3:26 PM EDT Symptom: Urine Symptoms Outcome: Schedule a same-day appointment or talk to a nurse or provider today Reason: Caller denied all higher acuity questions The caller accepted this outcome. [phone] algerian documented in this encounter Plan of Treatment Upcoming Encounters Date Type Department Care Team (Late st Contact Info) Description 04/06/2025 9:15 AM EDT Office Visit [facility] [address] [place] [address] Kalyani Browne MD [address] [place] [address] documented as of this encounter Visit Diagnoses Not on filedocumented in this encounter Care Teams Jewelry Casting Model Maker Relationship Specialty Start Date End Date Stefania Hunter DO [address] [place] [phone] PCP - General Family Medicine 11/05/18 documented as of this encounter
--- OUTSIDE RECORDS SUMMARY | 2025-02-04 18:20 | XMS_ITS | Encounter Summary ---
Author Organization [employer] Address [address] [place] [address] 7t [place] [address] Care Team Providers Care Reflow Operator Name Role Phone Stefania Hunter DO Primary Care Provider [phone] Reason for Visit * Reason Onset Date Comments Appointment Request 05/20/2024 Encounter Details Date Type Department Care Team (Late Contact Info) Description 05/20/2024 Telephone [facility] [address] [place] [address] [phone] Stefania Hunter DO [address] [place], [place] [phone] Appointment Request Social History Tobacco Use Types [...] Encounters Date Type Department Care Team (Late Contact Info) Description 04/06/2025 9:15 AM EDT Office Visit [facility] [address] [place] [phone] Kalyani Browne MD [address] [place], [place] [phone] documented as of this encounter Visit Diagnoses Not on filedocumented in this encounter Care Teams Reflow Operator Relationship Specialty Start Date End Date Stefania Hunter DO [address] [place] [address] PCP - General Family Medicine 11/05/18 documented as of this encounter
--- OUTSIDE RECORDS SUMMARY | 2025-02-04 18:20 | XMS_ITS | Encounter Summary ---
Author Organization [employer] Address [address] [facility] 7t [place] [address] Care Team Providers Care Hr Administrative Assistant Name Role Phone Stefania Hunter DO Primary Care Provider [phone] Reason for Visit * Reason Onset Date Comments Appointment Request 11/08/2023 Encounter Details Date Type Department Care Team (Late st Contact Info) Description 11/08/2023 Telephone [facility] [address] [place] [phone] Stefania Hunter DO [address] [place], [place] [phone] Appointment Request Social History Tobacco Use Types [...] cancer as well. Please contact pt at [phone] documented in this encounter Plan of Treatment Upcoming Encounters Date Type Department Care Team (Late st Contact Info) Description 04/06/2025 9:15 AM EDT Office Visit [facility] [address] [place] [address] Kalyani Browne MD [address] [place] [address] documented as of this encounter Visit Diagnoses Not on filedocumented in this encounter Care Teams Hr Administrative Assistant Relationship Specialty Start Date End Date Stefania Hunter DO [address] [place] [address] PCP - General Family Medicine 11/05/18 documented as of this encounter
--- OUTSIDE RECORDS SUMMARY | 2025-02-04 18:20 | XMS_ITS | Encounter Summary ---
Author Organization [employer] Address [address] [facility] 7t [place] [address] Care Team Providers Care Jumpbasting Facing Baster Name Role Phone Stefania Hunter Primary Care Provider [phone] Encounter Details Date Type Department Care Team (Late st Contact Info) Description 02/04/2025 2:40 PM EDT Office Visit [facility] [address] [place] [phone] Angella Montiel MD [address] [place] [address] Acute urinary tract infection Social History Tobacco Use Types Packs/Day Years [...] Mass Index 27.22 02/04/2025 2:12 PM EDT documented in this encounter Progress Notes * Brigette Mckeon MA - 02/04/2025 2:40 PM EDT * Angella Montiel MD - 02/04/2025 2:40 PM EDT Subjective Alia Elizondo is a 49 y.o. female here for evaluation of dysuria beginning 1 days ago. Other associated symptoms include: abdominal pain and foul odor . Fever has been absent. Symptoms which are notpresent include: chills, hematuria, urinary urgency, vaginal discharge, and vaginal itching. UTI history: recent UTI with E. coli 1.5 months ago, treated with Bactrim . Antibiotic use within past three months: .SJBABXUSE: Bactrim. Denies sexual activity. Reports about 2 weeks after completing bactrim she started having dysuria and foul smell. Seen on 12/29/24 for acute cystitis. UA with positive blood, nitrites and moderate leukocytes. Culture showed >100,000, sensitive to Bactrim. Review of Systems Constitutional: Negative for fatigue, fever and unexpected weight change. Respiratory: Negative for cough. Cardiovascular: Negative for chest pain. Gastrointestinal: Negative for abdominal pain. Genitourinary: Negative for difficulty urinating. Objective Visit Vitals BP 123/79 (BP Location: Right arm, Patient Position: Sitting, BP Cuff Size: Adult) Pulse 93 Temp 99.8 ??F (37.7 ??C) (Oral) Resp 16 Ht 5' 2 (1.575 m) Wt 148 lb 12.8 oz (67.5 kg) SpO2 100% BMI 27.22 kg/m?? Smoking Status Former BSA 1.72 m?? Physical Exam Constitutional: Appearance: Normal appearance. HENT: Right Ear: Tympanic membrane normal. Left Ear: Tympanic membrane normal. Cardiovascular: Rate and Rhythm: Normal rate and regular rhythm. Heart sounds: Normal heart sounds. Pulmonary: Effort: Pulmonary effort is normal. Breath sounds: Normal breath sounds. Abdominal: General: Abdomen is flat. Palpations: Abdomen is soft. Tenderness: There is no abdominal tenderness. There is no right CVA tenderness or left CVA tenderness. Neurological: General: No focal deficit present. Mental Status: She is alert. Psychiatric: Behavior: Behavior normal. Lab review Urine dip: 2+ for leukocyte esterase Diagnoses and all orders for this visit: Acute urinary tract infection - POCT urinalysis dipstick manually resulted - nitrofurantoin, macrocrystal-monohydrate, (Macrobid) 100 MG capsule; Take 1 capsule (100 mg) by mouth 2 times daily for 5 days. Problem List Items Addressed This Visit Acute urinary tract infection Likely acute UTI based on history, exam [...] fever, chills, worsening symptoms or abdominal/flank pain Relevant Medications nitrofurantoin, macrocrystal-monohydrate, (Macrobid) 100 MG capsule Other Relevant Orders POCT urinalysis dipstick manually resulted -No evidence of acute disease process. Suspect acute UTI. Symptoms mild. -Will treat with abx, sent UA and culture. -ER precautions discussed. -Seek medical attention for worsening symptoms. I, Ronni Lindo, am serving as a scribe to document services personally performed by Dr. Park, based on the patient's response to questions by provider and providers statements to me. documented in this encounter Miscellaneous Notes * Assessment & Plan Note - Ronni Lindo - 02/04/2025 2:26 PM EDTAssociated Problem(s): Acute urinary tract infection Likely acute UTI based on history, exam [...] fever, chills, worsening symptoms or abdominal/flank pain documented in this encounter Plan of Treatment Upcoming Encounters Date Type Department Care Team (Late st Contact Info) Description 04/06/2025 9:15 AM EDT Office Visit [facility] [address] [place] [address] Kalyani Browne MD [address] [place], [place] [phone] Scheduled Orders Name Type Priority Associated Diagnoses Orde r Schedule Culture, Urine, Routine Microbiology Routine Acute urinary tract infection Ordered: 02/04/2025 Urinalysis, Complete, with Reflex to Culture Lab Routine Acute urinary tract infection Expected: 02/04/2025 (Approximate), Expires: 02/04/2026 documented as of this encounter Procedures Procedure Name Priority Date/Time Associated Diagnosis Comments POCT URINALYSIS DIPSTICK Routine 02/04/2025 2:48 PM EDT Acute urinary tract infection documented in this encounter Results * (ABNORMAL) POCT urinalysis dipstick manually resulted (02/04/2025 2:48 PM EDT) Color, UA Yellow Clarity, UA Cloudy Glucose, UA Negative Bilirubin, UA Negative Ketones, UA Negative Spec Grav, UA 1.025 Blood, UA Positive(A) Negative, None Detected Comment:moderate pH, UA 5.5 Protein, UA Trace Urobilinogen, UA 0.2 Leukocytes, UA Negative Negative, Rare, Trace Nitrite, UA Negative Negative, None Detected Appearance, UA cloudy QC Media Lot # [id number] Lot# Expiration Date [id number] Urine 02/04/2025 2:48 PM EDT Angella Montiel MD POINT OF CARE TEST ENTER/E DIT ORDERABLES Final Result documented in this encounter Visit Diagnoses Diagnosis Acute urinary tract infection Urinary tract infection, site not specified documented in this encounter Care Teams Jumpbasting Facing Baster Relationship Specialty Start Date End Date Stefania Hunter DO [address] [place] [address] PCP - General Family Medicine 11/05/18 documented as of this encounter
--- OUTSIDE RECORDS SUMMARY | 2025-02-04 18:20 | XMS_ITS | Encounter Summary ---
Author Organization [employer] Address [address] [facility] 7t [place] [address] Care Team Providers Care Crop Or Livestock Tenant Farmer Name Role Phone Stefania Hunter DO Primary Care Provider Encounter Details Date Type Department Care Team (Late st Contact Info) Description 08/03/2023 Abstract [facility] MED[facility]INE [address] [place] [phone] Stefania Hunter DO [address] [place], [place] [phone] Social History Tobacco Use Types Packs/Day Years [...] Description 04/06/2025 9:15 AM EDT Office Visit [facility] [address] [place] [phone] Kalyani Browne MD [address] [place], [place] [phone] documented as of this encounter Procedures Procedure Name Priority Date/Time Associated Diagnosis Comments PAP/HPV Routine 03/30/2021 documented in this encounter Results * Pap Smear (03/30/2021) Pap Negative for intraephithelial lesion or malignancy Negative for intraephithelial lesion or malignancy, Other HPV Undetected us Historical Provider HEALTH MAINTENANCE Final Result documented in this encounter Visit Diagnoses Not on filedocumented in this encounter Care Teams Crop Or Livestock Tenant Farmer Relationship Specialty Start Date End Date Stefania Hunter DO [address] [place] [address] PCP - General Family Medicine 11/05/18 documented as of this encounter
[2025-02-04 18:27] LABS: Appearance Urine Cloudy; Color Urine Yellow; Glucose Urine UA Negative (Negative); Leukocyte Esterase Urine Large (3+) (Negative); Nitrite Urine Negative (Negative); PH 5.5 (5.0-9.0); Specific Gravity - Urine 1.025 (1.005-1.025); UMIC TRIGGER UACC YES; Urine Blood Moderate (2+) (Negative); Urine Ketones Trace mg/dL (Negative); Urine Protein Negative (Neg-Trace)
[2025-02-04 18:34] LABS: Bacteria Urine None Seen (None Seen); Hyaline Casts Urine 0-2 /LPF (0-2); Squamous Epithelial Cell Urine 0-2 /HPF (0-2); UACC Culture Trigger YES; WBC Urine >50 /HPF (0-5)
== END 2025-02-04 18:16 | disposition home or self-care (01) ==
LOC: HO.HHCLNP 18:15
PROVIDERS: Visit Provider Family Medicine
DX: N39.0 Urinary tract infection, site not specified (principal); B96.20 Unspecified Escherichia coli [E. coli] as the cause of diseases classified elsewhere
CPT/HCPCS: 81001; 87086; 87088; 87186

== ENCOUNTER 2025-03-03 12:52 | Outpatient (REF) | payer MEDICAID, SELFPAY ==
--- NOTE | ~2025-03-03 | XR_ITS ---
EXAMINATION: X-ray hand, bilaterally. CLINICAL INFORMATION: Pain and numbness, both hands. . TECHNIQUE: 3 views of both hands.. COMPARISON: None FINDINGS: No acute cortical disruption or malalignment. No lytic or blastic lesions. No gross joint space narrowing. No gross subarticular cyst formation or sclerosis. No metallic or radiopaque foreign body. Punctate calcification at the interphalangeal joint first digit, left hand.. XR/XR Hand Bilat min 3v IMPRESSION: No acute fracture or dislocation. No lytic or blastic lesions. Punctate soft tissue calcification, interphalangeal joint fourth digit left hand. Electronically signed by: Bulmaro Best MD 03/03/2025 03:53 PM EDT
--- OUTSIDE RECORDS SUMMARY | 2025-03-03 14:42 | XMS_ITS | Clinical Summary ---
Author Organization [employer] Address [address] [facility] 7t [place] [address] Care Team Providers Care Tack Cutter Name Role Phone Stefania Hunter Primary Care Provider Allergies Active Allergy Reactions Criticality Noted Date Comments Morphine 08/28/2013 Penicillin V Rash Low 11/08/2010 Medications hydrocortisone 1 % creamIndications :Right foot pain Apply topically if needed (itching). 1g As often as needed up to 6 times/d 45 g 4 Active naproxen (Naprosyn) 500 MG tablet Take 1 tablet (500 mg) by mouth if needed in the morning and at bedtime for mild pain. 40 tablet 1 5 03/03/20 26 Active Diclofenac Sodium 1 % gelIndications:P aresthesia and pain of both upper extremities Apply 2 g topically if needed in the morning, at noon, in the evening, and at bedtime (pain). 150 g 3 5 Active gabapentin (Neurontin) 300 MG capsule Take 1 capsule (300 mg) by mouth at bedtime. 30 capsule 3 5 03/03/20 26 Active nitrofurantoin, macrocrystal-mon ohydrate, (Macrobid) 100 MG capsuleIndicatio ns:Acute urinary tract infection Take 1 capsule (100 mg) by mouth 2 times daily for 5 days. 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 It could be related to UTI, follow-up with PCP after antibiotics if they persist Acute cystitis with hematuria 12/29/2024 03/03/2025 Assessment & Plan (12/29/2024 3:23 PM EST): Advised regarding increase p.o. fluids, take Bactrim x 5 days and follow-up urine culture. Advised to call as needed if she develops vaginal discharge, may need clotrimazole Diflucan. Encounters Date Type Department Care Team Description 03/03/2025 11:45 AM EDT Office Visit [address] [address] Stefania Hunter DO Paresthesia and pain of both upper extremities (Primary Dx); Varicose veins of both lower extremities with inflammation; Malodorous urine; BMI 27.0-27.9,adult; Vaginal discharge; Dysuria 03/03/2025 Telephone [facility] [address] [place] [address] Stefania Hunter DO 03/03/2025 Travel 02/26/2025 Telephone [facility] [address] [place] [address] Stefania Hunter DO Chart prep 02/26/[address] [address] Stefania Hunter DO Nurse Triage 02/05/2025 Telephone [facility] [address] [place] [address] Stefania Hunter DO Results 02/04/2025 2:40 PM EDT Office Visit [facility] [address] [place] [phone] Angella Montiel MD Acute urinary tract infection 02/04/2025 Travel 01/29/[address] [address] Stefania Hunter DO Nurse Triage 01/19/[address] [address] Stefania Hunter DO Med Refill 01/16/2025 Population Health Risk Score [facility] () Department [address] [place] [phone] Provider, Population Health Generic 01/13/[address] [address] Stefania Hunter DO Nurse Triage 01/01/2025 Telephone [facility] [address] [place] [address] Stefania Hunter DO Results 01/01/2025 Telephone [facility] [address] [place] [address] Sahara Wall MD Results 12/31/[address] [address] Lucina Roach RN 12/29/2024 3:00 PM EST Office Visit [facility] [address] [place] [address] Sahara Wall MD Acute cystitis with hematuria (Primary Dx); Subcutaneous nodules; Dysuria 12/29/2024 Telephone [facility] [address] [place] [address] Stefania Hunter, DO Nurse Triage 12/03/2024 Telephone [facility] [address] [place], [place] [phone] Stefania Hunter, DO No Show from Last 3 Months Immunizations [...] Tobacco: Never Tobacco Cessation:Counseling Given: Not Answered Alcohol Use Standard Drinks/Week Comments Never 0 (1 standard drink = 0.6 oz pur e alcohol) Comments Unknown Sex and Gender Information Value Date Recorded Sex Assigned at Female 09/04/2022 10:20 AM EDT Legal Sex Female 10:20 AM EDT Gender Identity Female 09/04/2022 10:20 AM EDT Sexual Orientation Straight 09/04/2022 10 :20 AM EDT Last Filed Vital Signs Vital Sign Reading Time Taken Comments Blood Pressure 126/78 03/03/2025 11:43 AM EDT Pulse 89 03/03/2025 11:43 AM EDT Temperature 36.9 ??C (98.5 ??F) 03/03/2025 11:43 AM E DT Respiratory Rate 20 03/03/2025 11:43 AM EDT Oxygen Saturation 99% 03/03/2025 11:43 AM EDT Inhaled Oxygen Concentration - - Weight 68.1 kg (150 lb 2 oz) 03/03/2025 11:43 AM EDT Height 157.5 cm (5' 2 ) 03/03/2025 11:43 AM EDT Body Mass Index 27.46 03/03/2025 11:43 AM EDT Plan of Treatment Upcoming Encounters Date Type Department Care Team (Late st Contact Info) Description 04/06/2025 9:15 AM EDT Office Visit [facility] [address] [place] [address] Kalyani Browne MD [address] [place] [address] Health Maintenance Due Date Last Done Comments [...] Mammogram 12/27/2025 12/27/2023, 07/07, 01/29/2019 Tobacco Screening 03/03/2026 03/03/2025 Cervical Cancer Screening 03/30/2026 HPV/Cotest 03/30/2026 03/30/2021, [...] Procedure Name Priority Date/Time Associated Diagnosis Comments CULTURE, URINE, ROUTINE Routine 02/04/2025 2:50 PM EDT Acute urinary tract infection POCT URINALYSIS DIPSTICK Routine 02/04/2025 2:48 PM EDT Acute urinary tract infection URINALYSIS, COMPLETE, WITH REFLEX TO CULTURE Routine 02/04/2025 12:00 AM EDT Acute urinary tract infection CULTURE, URINE, [...] Recently Relevant to Health Maintenance Results * Culture, Urine, Routine (02/04/2025 2:50 PM EDT) Only the most recent of2 resultswithin the time period is included. Urine Urine specimen obtained by clean catch procedure / Unknown 02/04/2025 2:50 PM EDT 02/04/2025 6:16 PM EDT Comment:UACC Narrative [facility] - 02/06/2025 7:21 AM EDT Escherichia coli Quant 10,000 to 50,000 cfu/mL Escherichia coli: Ampicillin >=32(R) Escherichia coli: Cefazolin (Urine) 4(S) Escherichia coli: Cefepime <=0.12(S) Escherichia coli: Ceftriaxone <=0.25(S) Escherichia coli: Ciprofloxacin <=0.06(S) Escherichia coli: Gentamicin <=1(S) Escherichia coli: Nitrofurantoin <=16(S) Escherichia coli: Trimethoprim/Sulfamethoxazole <=20(S) Specimen Source: Urine clean catch Angella Montiel MD LAB MICROBIOLOGY - GENERAL ORDERABLES Final Result [facility] [address] [place] [address] [phone] * (ABNORMAL) POCT urinalysis dipstick manually resulted [...] Media Lot # [id number] Lot# Expiration Date [id number] Urine 02/04/2025 2:48 PM EDT Angella Montiel MD POINT OF CARE TEST ENTER/E DIT ORDERABLES Final Result * (ABNORMAL) Urinalysis, Complete, with Reflex to Culture (02/04/2025 12:00 AM EDT) Color Urine Yellow [facility] Appearance Urine Cloudy [facility] PH 5.5 5.0 - 9.0 [facility] Glucose Urine UA Negative Negative mg/dL [facility] Urine Blood Moderate (2+)(A) Negative [facility] Specific Walker - Urine 1.025 1.005 - 1.025 [facility] Urine Protein Negative Neg-Trace mg/dL [facility] Urine Ketones Trace Negative mg/dL [facility] Nitrite Urine Negative Negative [facility] Leukocyte Esterase Urine Large (3+)(A) Negative [facility] RBC Urine 11-20(A) 0 - 2 /HPF [facility] Urine WBC >50(A) 0 - 5 /HPF [facility] Urine Squamous Epithelial Cell 0-2 0 - 2 /HPF [facility] Urine Bacteria None Seen None Seen [facility] Hyaline Casts, Urine 0-2 0 - 2 /LPF [facility] Urine 02/04/2025 02/04/2025 Narrative [facility] - 02/04/2025 6:36 PM EDT Urine, Clean Catch Angella Montiel MD LAB URINE ORDERABLES Final Result Performing Organization Address [facility] Co de Phone Number [facility] [address] [place] [address] [phone] * BI Mammogram Screening Tomosynthesis Bilateral (12/27/2023 1:20 PM EST) Anatomical Region Laterality Modality Breast Bilateral Mammography 12/27/2023 1:20 PM EST Narrative 01/20/2024 7:59 AM EDT ? [facility] ? [address] ?[place] [address] ? Mammography Report ? Signed ? Patient: Elizondo,Alia ?MR#: [id number] ?? 62 ? : 1975 ?Acct:[id number] ? Age/Sex: 48 / F ?ADM Date: 12/27/23 ? Loc: HO.MAMMO ? Attending Dr: Stefania Hunter DO ? Ordering Physician: Stefania Hunter DO ?Results: 2B ?? enign Findings ? Date of Service: 12/27/23 ?Follow Up: 1 Year From Orig ?? inal Mammogram ? Procedure(s): MM tomosynthesis screening BI ?? Accession Number(s): [id number] ? cc: Stefania Hunter DO ? EXAMINATION: [...] 0756 ? DD/ 1320 ? TD/TT: ? Senior Test Analyst: ? Procedure Note Donjollyter, Image - 01/21/2024 [facility] [address] [place] [address] Mammography Report Signed Patient: Edgar Elizondo#: [id number] 62 : 1975Acct:[id number] Age/Sex: 48 / FADM Date: 12/27/23 Loc: HO.MAMMO Attending Dr: Stefania Hunter DO Ordering Physician: Stefania Hunterults: 2B enign Findings Date of Service: 12/27/23Follow Up: 1 Year From Orig inal Mammogram Procedure(s): MM tomosynthesis screening BI Accession Number(s): [id number] cc: Stefania Hunter DO EXAMINATION: MM SCREENING [...] in OV> 01/20/24 0756 DD/ 1320 TD/TT: Senior Test Analyst: Stefania Hunter DO IMG BI PROCEDURES Final Resu lt * HEPATITIS B SURFACE ANTIBODY (06/23/2022 6:14 AM EDT) Hepatitis B Surface Antibody NONREACTIVE Nonreactive [facility] Comment:Nonreactive: < 8.00 mIU/mL Hepatitis B Surface Antigen Negative Negative [facility] HIV AB/AG Nonreactive Nonreactive [facility] [...] detection of this assay. ?? The [employer] Control Operator HIV Ag/Ab Combo assay result and supplemental assay results should be interpreted in conjunction with the patient's clinical presentation, history and other laboratory results. ??If the results are inconsistent with clinical evidence, additional testing is suggested to confirm the result. 06/23/2022 6:14 AM EDT us Stefania Hunter DO HISTORICAL/NON ORDERABLE LAB S Final Result [facility] [address] * HEPATITIS C ANTIBODY RFLX (06/23/2022 6:14 AM EDT) Hepatitis C Antibody Nonreactive Nonreactive [facility] Comment: Antibodies to HCV not detected; does not exclude early acute HCV infection. 06/23/2022 6:14 AM EDT Stefania Hunter DO HISTORICAL/NON ORDERABLE LAB S Final Result [facility] [address] * Hm Pap Smear (03/30/2021) Pap Negative for intraephithelial lesion or malignancy Negative for intraephithelial lesion or malignancy, Other HPV Undetected Historical Provider MD HEALTH MAINTENANCE Final Result from Last 3 Months or Most Recently Relevant to Health Maintenance Insurance [employer] Care Teams Tack Cutter Relationship Specialty Start Date End Date Stefania Hunter DO [address] [place] [address] PCP - General Family Medicine 11/05/18
--- OUTSIDE RECORDS SUMMARY | 2025-03-03 14:42 | XMS_ITS | Encounter Summary ---
Author Organization [employer] Address [address] [place] [address] 7t [place] [address] Care Team Providers Care Commodity Supervisor Name Role Phone Stefania Hunter DO Primary Care Provider [phone] Reason for Visit * Reason Onset Date Comments Appointment Request 05/20/2024 Encounter Details Date Type Department Care Team (Late Contact Info) Description 05/20/2024 Telephone [facility] [address] [place] [address] [phone] Stefania Hunter DO [address] [place], [place] [phone] Appointment Request Social History Tobacco Use Types [...] 9:15 AM EDT Office Visit [facility] [address] [place] [phone] Kalyani Browne MD [address] [place], [place] [phone] documented as of this encounter Visit Diagnoses Not on filedocumented in this encounter Care Teams Commodity Supervisor Relationship Specialty Start Date End Date tSefania Hunter DO [address] [place] [address] PCP - General Family Medicine 11/05/18 documented as of this encounter
--- OUTSIDE RECORDS SUMMARY | 2025-03-03 14:42 | XMS_ITS | Encounter Summary ---
Author Organization [employer] Address [address] [facility] 7t [place] [address] Care Team Providers Care Advisor To Command In Combat Name Role Phone Stefania Hunter DO Primary Care Provider [phone] Reason for Visit * Reason Onset Date Comments Nurse Triage 02/26/2025 Encounter Details Date Type Department Care Team (Late st Contact Info) Description 02/26/2025 Telephone [facility] [address] [place], [place] [phone] Stefania Hunter DO [address] [place] [address] Nurse Triage Social History Tobacco Use Types [...] encounter Miscellaneous Notes * Telephone Encounter - Alessandra Silva RN - 02/26/2025 10:52 AM EDT called pt to triage, spoke to pt. through [employer] Consultant. pt states several months duration of intermittent numbness in hands. pt states gets up in the morning and feels numbness of both hands and mild swelling. pt states symptoms often resolve during the day but never really goes away. pt denies constant numbness, history of neck pain, severe swelling, injury, or other associated symptoms. 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 given appt with PCP as requested 03/03 at 11:45 for exam. advised home care: rest, fluids, heat, and call back as needed. insurance verified. Protocol Used: Neurologic Deficit (Adult) Protocol-Based Disposition: See in Office. Video visit offer not recorded Positive Triage Question: * Numbness or tingling on both sides of body and is a new symptom lasting > 24 hours * All higher-acuity triage questions were negative Care Advice Discussed: * Reasons To Call Back - Symptoms do not go away within 10 to 15 minutes - You become worse * Telephone Encounter - Zev Renee - 02/26/2025 10:23 AM EDT Symptom: Hand or Wrist Swelling Outcome: Schedule an urgent appointment (within 1 hour) or talk to a nurse or provider soon Reason: Can't use the hand normally The caller accepted this outcome. Contact pt at [phone] documented in this encounter Plan of Treatment Upcoming Encounters Date Type Department Care Team (Late st Contact Info) Description 04/06/2025 9:15 AM EDT Office Visit [facility] [address] [place], [place] [phone] Kalyani Browne MD [address] [place] [address] documented as of this encounter Visit Diagnoses Not on filedocumented in this encounter Care Teams Advisor To Command In Combat Relationship Specialty Start Date End Date Stefania Hunter DO [address] [place] [address] PCP - General Family Medicine 11/05/18 documented as of this encounter
--- OUTSIDE RECORDS SUMMARY | 2025-03-03 14:42 | XMS_ITS | Encounter Summary ---
Author Organization [employer] Address [address] [facility] 7t [place] [address] Care Team Providers Care Drier Helper Name Role Phone Stefania Hunter DO Primary Care Provider [phone] Reason for Visit * Reason Onset Date Comments Nurse Triage 01/13/2025 Encounter Details Date Type Department Care Team (Late st Contact Info) Description 01/13/2025 Telephone [facility] [address] [place], [place] [phone] Stefania Hunter DO [address] [place] [address] Nurse Triage Social History Tobacco Use Types [...] acuity questions The caller accepted this outcome. [phone] lao documented in this encounter Plan of Treatment Upcoming Encounters Date Type Department Care Team (Late st Contact Info) Description 04/06/2025 9:15 AM EDT Office Visit [facility] [address] [place] [address] Kalyani Browne MD [address] [place] [address] documented as of this encounter Visit Diagnoses Not on filedocumented in this encounter Care Teams Drier Helper Relationship Specialty Start Date End Date Stefania Hunter DO [address] [place] [phone] PCP - General Family Medicine 11/05/18 documented as of this encounter
--- OUTSIDE RECORDS SUMMARY | 2025-03-03 14:42 | XMS_ITS | Encounter Summary ---
Author Organization [employer] Address [address] [facility] 7t [place] [address] Care Team Providers Care Manager Wind Name Role Phone Stefania Hunter DO Primary Care Provider [phone] Reason for Visit * Reason Onset Date Comments Chart prep 02/26/2025 Encounter Details Date Type Department Care Team (Late Contact Info) Description 02/26/[address] [address] Stefania Hunter DO [address] [place] [address] Chart prep Social History Tobacco Use Types Packs/Day Years [...] encounter Miscellaneous Notes * Telephone Encounter - Suzy Morris MA - 02/26/2025 2:55 PM EDT Chart Prep Labs: done Images: done Referrals: no show Vaccines due: yes Screenings: colonoscopy Overdue care gaps: SDOH and PHQ-9 documented in this encounter Plan of Treatment Upcoming Encounters Date Type Department Care Team (Late Contact Info) Description 04/06/2025 9:15 AM EDT Office Visit [facility] [address] [place] [address] Kalyani Browne MD [address] [place], [place] [phone] documented as of this encounter Visit Diagnoses Not on filedocumented in this encounter Care Teams Manager Wind Relationship Specialty Start Date End Date Stefania Hunter DO [address] [place], [place] [phone] PCP - General Family Medicine 11/05/18 documented as of this encounter
--- OUTSIDE RECORDS SUMMARY | 2025-03-03 14:42 | XMS_ITS | Encounter Summary ---
Author Organization [employer] Address [address] [facility] 7t [place] [address] Care Team Providers Care Specialty Trimmer Name Role Phone Stefania Hunter DO Primary Care Provider [phone] Encounter Details Date Type Department Care Team (Late Contact Info) Description 03/03/2025 Telephone [facility] [address] [place] [phone] Stefania Hunter DO [address] [place] [address] [phone] Social History Tobacco Use Types Packs/Day Years Used Date Smoking Tobacco: Former Cigarettes Smokeless Tobacco: Never Alcohol Use Standard Drinks/Week Comments Never 0 [...] encounter Miscellaneous Notes * Telephone Encounter - Stefania Hunter DO - 03/03/2025 12:25 PM EDT Please initiate rx for b/l wrist splints. Thank you. documented in this encounter Plan of Treatment Upcoming Encounters Date Type Department Care Team (Late Contact Info) Description 04/06/2025 9:15 AM EDT Office Visit [facility] [address] [place] [address] [phone] Kalyani Browne MD [address] [place], [place] [phone] documented as of this encounter Visit Diagnoses Not on filedocumented in this encounter Care Teams Specialty Trimmer Relationship Specialty Start Date End Date Stefania Hunter DO [address] [place] [address] PCP - General Family Medicine 11/05/18 documented as of this encounter
--- OUTSIDE RECORDS SUMMARY | 2025-03-03 14:42 | XMS_ITS | Encounter Summary ---
Author Organization [employer] Address [address] [place] [address] [address] [place] [address] Care Team Providers Care Life Science Research Assistant Name Role Phone Stefania Hunter DO Primary Care Provider [phone] Reason for Referral * Medications - Closed Specialty Diagnoses / Procedures Referred By Bryan jerry Referred To Contact Diagnoses Paresthesia and pain of both upper extremities Stefania Hunter DO [address] [place] [address] Phone: tel: fax: Referral ID Status Reason Start Date Expiration Date Visits Re quested Visits Authorized [id number] Closed 1 1 * Consultation (Routine) - Pending Review Specialty Diagnoses / Procedures Referred By Bryan jerry Referred To Contact Vascular Surgery Diagnoses Varicose veins of both lower extremities with inflammation Stefania Hunter DO [address] [place] [address] Phone: tel: fax: Referral ID Status Reason Start Date Expiration Date Visits Requested Visits Authorized [id number] Pending Review Specialty Services Required 03/03/2025 03/03/2026 1 1 * Neurology (Routine) - Authorized Specialty Diagnoses / Procedures Referred By Bryan jerry Referred To Contact Diagnoses Paresthesia and pain of both upper extremities Procedures Nerve conduction test Stefania Hunter DO [address] [place] [address] Phone: tel: fax: [address] Phone: tel: fax: Referral ID Status Reason Start Date Expiration Date V isits Requested Visits Authorized [id number] Authorized 03/03/2025 03/03/2026 1 1 * Neurology (Routine) - Authorized Specialty Diagnoses / Procedures Referred By Contac t Referred To Contact Diagnoses Paresthesia and pain of both upper extremities Procedures EMG Stefania Hunter DO [address] [place] [address] Phone: tel: fax: [address] Phone: tel: fax: Referral ID Status Reason Start Date Expiration Date V isits Requested Visits Authorized [id number] Authorized 03/03/2025 03/03/2026 1 1 Encounter Details Date Type Department Care Team (Late st Contact Info) Description 03/03/2025 11:45 AM EDT Office Visit [facility] [address] [place] [address] Stefania Hunter DO [address] [place] [phone] Paresthesia and pain of both upper extremities (Primary Dx); Varicose veins of both lower extremities with inflammation; Malodorous urine; BMI 27.0-27.9,adult; Vaginal discharge; Dysuria Social History Tobacco Use Types Packs/Day [...] Mass Index 27.46 03/03/2025 11:43 AM EDT documented in this encounter Plan of Treatment Upcoming Encounters Date Type Department Care Team (Late st Contact Info) Description 04/06/2025 9:15 AM EDT Office Visit [facility] [address] [place] [address] Kalyani Browne MD [address] [place] [address] Scheduled Orders Name Type Priority Associated Diagnoses Orde r Schedule T4, Free Lab Routine Paresthesia and pain of both upper extremities BMI 27.0-27.9,adult Expected: 03/03/2025 (Approximate), Expires: 03/03/2026 Lipid Panel, Standard Lab Routine Paresthesia and pain of both upper extremities BMI 27.0-27.9,adult Expected: 03/03/2025 (Approximate), Expires: 03/03/2026 TSH Lab Routine Paresthesia and pain of both upper extremities BMI 27.0-27.9,adult Expected: 03/03/2025 (Approximate), Expires: 03/03/2026 Vitamin D, 25-Hydroxy, Total, Immunoassay Lab Routine Paresthesia and pain of both upper extremities BMI 27.0-27.9,adult Expected: 03/03/2025 (Approximate), Expires: 03/03/2026 Hepatic Function Panel Lab Routine Paresthesia and pain of both upper extremities BMI 27.0-27.9,adult Expected: 03/03/2025 (Approximate), Expires: 03/03/2026 Hemoglobin A1c Lab Routine Paresthesia and pain of both upper extremities BMI 27.0-27.9,adult Expected: 03/03/2025 (Approximate), Expires: 03/03/2026 Basic Metabolic Panel Lab Routine Paresthesia and pain of both upper extremities BMI 27.0-27.9,adult Expected: 03/03/2025 (Approximate), Expires: 03/03/2026 Hepatitis B surface antigen, EIA Lab Routine Paresthesia and pain of both upper extremities BMI 27.0-27.9,adult Expected: 03/03/2025 (Approximate), Expires: 03/03/2026 HIV-1/2 Antigen and Antibodies, Fourth Generation, with Reflexes Lab Routine Paresthesia and pain of both upper extremities BMI 27.0-27.9,adult Expected: 03/03/2025 (Approximate), Expires: 03/03/2026 Hepatitis C Antibody with Reflex to HCV, RNA, Quantitative, Real-Time PCR Lab Routine Paresthesia and pain of both upper extremities BMI 27.0-27.9,adult Expected: 03/03/2025, Expires: 03/03/2026 RPR (Monitor) with Reflex to??Titer Lab Routine Paresthesia and pain of both upper extremities BMI 27.0-27.9,adult Expected: 03/03/2025, Expires: 03/03/2026 Hepatitis B Surface Antibody, Qualitative Lab Routine Paresthesia and pain of both upper extremities BMI 27.0-27.9,adult Expected: 03/03/2025 (Approximate), Expires: 03/03/2026 VAISHALI Screen,IFA, with Reflex to Titer and Pattern Lab Routine Paresthesia and pain of both upper extremities BMI 27.0-27.9,adult Expected: 03/03/2025 (Approximate), Expires: 03/03/2026 Lyme Disease Ab with Reflex to Blot (IgG, IgM) Lab Routine Paresthesia and pain of both upper extremities BMI 27.0-27.9,adult Expected: 03/03/2025, Expires: 03/03/2026 Rheumatoid Factor Lab Routine Paresthesia and pain of both upper extremities BMI 27.0-27.9,adult Expected: 03/03/2025, Expires: 03/03/2026 Sed Rate by Modified Westergren Lab Routine Paresthesia and pain of both upper extremities BMI 27.0-27.9,adult Expected: 03/03/2025, Expires: 03/03/2026 C-reactive Protein Lab Routine Paresthesia and pain of both upper extremities BMI 27.0-27.9,adult Expected: 03/03/2025 (Approximate), Expires: 03/03/2026 Vitamin B12 (Cobalamin) and Folate Panel, Serum Lab Routine Paresthesia and pain of both upper extremities BMI 27.0-27.9,adult Expected: 03/03/2025, Expires: 03/03/2026 Ferritin Lab Routine Paresthesia and pain of both upper extremities BMI 27.0-27.9,adult Expected: 03/03/2025, Expires: 03/03/2026 Iron And Total Iron Binding Capacity Lab Routine Paresthesia and pain of both upper extremities BMI 27.0-27.9,adult Expected: 03/03/2025, Expires: 03/03/2026 CBC auto differential Lab Routine Paresthesia and pain of both upper extremities BMI 27.0-27.9,adult Expected: 03/03/2025 (Approximate), Expires: 03/03/2026 XR Hand 3+ Views Right Imaging Routine Paresthesia and pain of both upper extremities Expected: 03/03/2025, Expires: 03/03/2026 XR Hand 3+ Views Left Imaging Routine Paresthesia and pain of both upper extremities Expected: 03/03/2025, Expires: 03/03/2026 Culture, Urine, Routine Microbiology Routine Dysuria Ordered: 03/03/2025 Bacterial Vaginosis Panel Microbiology Routine Vaginal discharge Ordered: 03/03/2025 Chlamydia/N. Gonorrhoeae RNA, TMA, Urogenitial Microbiology Routine Vaginal discharge Ordered: 03/03/2025 EMG Neurology Routine Paresthesia and pain of both upper extremities Expected: 03/03/2025 (Approximate), Expires: 03/03/2026 Nerve conduction test Neurology Routine Paresthesia and pain of both upper extremities Expected: 03/03/2025 (Approximate), Expires: 03/03/2026 Scheduled Referrals Name Type Priority Associated Diagnoses Orde r Schedule Referral to Vascular Surgery Outpatient Referral Routine Varicose veins of both lower extremities with inflammation Expected: 03/03/2025 (Approximate), Expires: 03/03/2026 documented as of this encounter Visit Diagnoses Diagnosis Paresthesia and pain of both upper extremities- Primary Varicose veins of both lower extremities with inflammation Malodorous urine BMI 27.0-27.9,adult Vaginal discharge Leukorrhea, not specified as infective Dysuria documented in this encounter Care Teams Life Science Research Assistant Relationship Specialty Start Date End Date Stefania Hunter DO [address] [place] [phone] PCP - General Family Medicine 11/05/18 documented as of this encounter
--- OUTSIDE RECORDS SUMMARY | 2025-03-03 14:42 | XMS_ITS | Encounter Summary ---
Author Organization [employer] Address [address] [facility] [address] [place] [address] Care Team Providers Care Wiring Inspector Name Role Phone Stefania Hunter DO Primary Care Provider [phone] Encounter Details Date Type Department Care Team (Latest Contact Info) Description 03/03/2025 Travel Social History Tobacco Use Types Packs/Day [...] Description 04/06/2025 9:15 AM EDT Office Visit [facility] [address] [place] [address] Kalyani Browne MD [address] [place] [address] documented as of this encounter Visit Diagnoses Not on filedocumented in this encounter Care Teams Wiring Inspector Relationship Specialty Start Date End Date Stefania Hunter DO [address] [place] [address] PCP - General Family Medicine 11/05/18 documented as of this encounter
--- OUTSIDE RECORDS SUMMARY | 2025-03-03 14:42 | XMS_ITS | Encounter Summary ---
Author Organization [employer] Address [address] [facility] 7t [place] [address] Care Team Providers Care Refrigeration Plant Cork Insulator Name Role Phone Stefania Hunter DO Primary Care Provider Encounter Details Date Type Department Care Team (Late st Contact Info) Description 08/03/2023 Abstract [facility] MED[facility]INE [address] [place] [address] Stefania Hunter DO [address] [place], [place] [phone] Social History Tobacco Use Types Packs/Day Years [...] 04/06/2025 9:15 AM EDT Office Visit [facility] [address] [place] [address] Kalyani Browne MD [address] [place], [place] [phone] documented as of this encounter Procedures Procedure Name Priority Date/Time Associated Diagnosis Comments PAP/HPV Routine 03/30/2021 documented in this encounter Results * Pap Smear (03/30/2021) Pap Negative for intraephithelial lesion or malignancy Negative for intraephithelial lesion or malignancy, Other HPV Undetected us Historical Provider HEALTH MAINTENANCE Final Result documented in this encounter Visit Diagnoses Not on filedocumented in this encounter Care Teams Refrigeration Plant Cork Insulator Relationship Specialty Start Date End Date Stefania Hunter DO [address] [place] [phone] PCP - General Family Medicine 11/05/18 documented as of this encounter
--- OUTSIDE RECORDS SUMMARY | 2025-03-03 14:42 | XMS_ITS | Encounter Summary ---
Author Organization [employer] Address [address] [facility] 7t [place] [address] Care Team Providers Care Business Strategy Manager Name Role Phone Stefania Hunter DO Primary Care Provider [phone] Reason for Visit * Reason Onset Date Comments Appointment Request 11/08/2023 Encounter Details Date Type Department Care Team (Late st Contact Info) Description 11/08/2023 Telephone [facility] [address] [place] [phone] Stefania Hunter DO [address] [place], [place] [phone] Appointment Request Social History Tobacco Use Types [...] cancer as well. Please contact pt at [phone] documented in this encounter Plan of Treatment Upcoming Encounters Date Type Department Care Team (Late st Contact Info) Description 04/06/2025 9:15 AM EDT Office Visit [facility] [address] [place] [phone] Kalyani Browne MD [address] [place] [address] documented as of this encounter Visit Diagnoses Not on filedocumented in this encounter Care Teams Business Strategy Manager Relationship Specialty Start Date End Date Stefania Hunter DO [address] [place] [address] PCP - General Family Medicine 11/05/18 documented as of this encounter
[2025-03-03 16:56] LABS: Bacterial Vaginosis PCR NEGATIVE (Negative); Candida Group PCR NOT DETECTED (Not Detect); Candida glab krusei PCR NOT DETECTED (Not Detect); Trichomonas vaginalis PCR NOT DETECTED (Not Detect)
[2025-03-03 17:28] LABS: CT PCR NOT DETECTED (Not Detect.); NG PCR NOT DETECTED (Not Detect.)
== END 2025-03-03 12:53 | disposition home or self-care (01) ==
LOC: HO.HHCX 12:52
PROVIDERS: Visit Provider Family Medicine
DX: N89.8 Other specified noninflammatory disorders of vagina (principal); R30.0 Dysuria
CPT/HCPCS: 73130; 81515; 87086; 87491; 87591

== ENCOUNTER → 2025-03-03 12:53 | Outpatient (BNV) | payer MEDICAID, SELFPAY | PROVIDERS: Visit Provider Radiology Diagnostic Radiology | DX: M79.642 Pain in left hand (principal); M79.641 Pain in right hand | CPT/HCPCS: 73130 ==

== ENCOUNTER 2025-04-06 10:12 | Outpatient (REF) | payer BC, SELFPAY ==
--- OUTSIDE RECORDS SUMMARY | 2025-04-06 11:08 | XMS_ITS | Encounter Summary ---
Author Organization [employer] Address [address] [facility] 7t [place] [address] Care Team Providers Care Client Project Coordinator Name Role Phone Stefania Hunter DO Primary Care Provider [phone] Encounter Details Date Type Department Care Team (Late st Contact Info) Description 08/03/2023 Abstract [facility] [address] [place] [address] Stefania Hunter DO [address] [place] [address] Social History Tobacco Use Types Packs/Day Years [...] on filedocumented in this encounter Care Teams Client Project Coordinator Relationship Specialty Start Date End Date Stefania Hunter DO [address] [place] [address] PCP - General Family Medicine 11/05/18 documented as of this encounter
[2025-04-06 11:27] LABS: MANUAL DIFF FLAG NO
[2025-04-06 11:41] LABS: Basophils Percent Auto 0.3 % (0-2); Eosinophils Absolute Auto 0.1 X10*3/uL (0.0-0.4); Eosinophils Percent Auto 1.6 % (0-4); Hemoglobin 12.6 g/dl (12.0-16.0); Imm Gran Abs Auto 0.03 X10*3/uL (0.00-0.03); Imm Gran Pct Auto 0.4 % (0.0-0.4); Lymphocytes Absolute Auto 1.7 X10*3/uL (1.2-4.9); Lymphocytes Percent Auto 23.8 % (20-40); Mean Corpuscular HGB Conc 32.3 g/dl (31.0-35.0); Mean Corpuscular Hemoglobin 28.8 pg (27.0-33.0); Mean Corpuscular Volume 89.2 fL (80.0-98.0); Mean Platelet Volume 9.3 fL (9.4-12.3); Monocytes Absolute Auto 0.4 X10*3/uL (0.1-1.2); Monocytes Percent Auto 5.5 % (2-11); Neutrophils Absolute Auto 4.8 x10*3/uL (2.0-8.3); Neutrophils Percent Auto 68.4 % (45-73); Platelet Count 433 X10*3/uL (160-400); Red Blood Count 4.37 X10*6/uL (4.20-5.50); White Blood Count 7.1 X10*3/uL (4.8-10.8)
[2025-04-06 11:54] LABS: Estimated Average Glucose 100 mg/dL; Hemoglobin A1c % 5.1 % (<6.0)
[2025-04-06 12:16] LABS: Alanine Aminotransferase 13 U/L (0-31); Albumin Level 4.4 g/dL (3.5-5.0); Alkaline Phosphatase 119 U/L (39-117); Anion Gap 12 (12-20); Aspartate Amino Transferase 23 U/L (5-31); Bilirubin Direct 0.1 mg/dL (0.0-0.5); Bilirubin Total 0.3 mg/dL (0.0-1.0); Blood Urea Nitrogen 21 mg/dL (9-16); C Reactive Protein 0.65 mg/dL (< or = 0.50); Calcium 9.4 mg/dL (8.4-10.2); Carbon Dioxide 27 mmol/L (22-29); Chloride 107 mmol/L (96-108); Cholesterol 234 mg/dL (<200); Estimated Glomerular Filt Rate > 60; Ferritin 68 ng/mL (10-250); Free T4 (Free Thyroxine) 1.09 ng/dL (0.71-1.85); Glucose Random 88 mg/dL (60-115); HDL Cholesterol 73 mg/dL (>40); Iron 54 mcg/dL (30-160); LDL Cholesterol Calculated 150 mg/dL (<100); Percent Iron Saturation 20 % (15-50); Potassium 4.4 mmol/L (3.3-5.1); Sodium 142 mmol/L (135-145); Thyroid Stimulating Hormone 1.92 uIU/mL (0.32-4.0); Total Iron Binding Capacity 271 mcg/dL (228-428); Total Protein 7.9 g/dL (6.5-8.0); Triglycerides 55 mg/dL (<150); Unsaturated Iron Binding 217 ug/dL; Vitamin D 25-OH Total 43.3 ng/mL (>30)
[2025-04-06 12:18] LABS: Rheumatoid Factor < 13.0 IU/mL (<15.0)
[2025-04-06 12:22] LABS: HBS Num1 0.14 mIU/mL (0-7.99); HBsAGNum1 0.26 S/CO (0.00-0.99); HIV AB/AG Nonreactive (Nonreactive); HIV Num 1 0.06 S/CO (0.00-0.99); Hepatitis B Surface Antigen Negative (Negative); ~Hepatitis B Surface Antibody NONREACTIVE (Nonreactive); ~Hepatitis C Antibody Nonreactive (Nonreactive)
[2025-04-06 12:31] LABS: Folate 9.7 ng/mL (> or = 4.0); Vitamin B12 447 pg/mL (200-900)
[2025-04-06 12:38] LABS: Erythrocyte Sedimentation Rate 29 MM/HR (0-20)
[2025-04-07 05:48] LABS: Lyme Abs Screen <0.90 index
[2025-04-07 09:33] LABS: RPR Rapid Plasma Reagin NON-REACTIVE (NON-REACTIVE)
[2025-04-08 11:38] LABS: Anti Nuclear Antibody Screen NEGATIVE (NEGATIVE)
== END 2025-04-06 10:13 | disposition home or self-care (01) ==
LOC: HO.HHCL 10:12
PROVIDERS: Visit Provider Family Medicine
DX: R20.2 Paresthesia of skin (principal); M79.601 Pain in right arm; M79.602 Pain in left arm; Z68.27 Body mass index [BMI] 27.0-27.9, adult
CPT/HCPCS: 36415; 80048; 80061; 80076; 82306; 82607; 82728; 82746; 83036; 83540; 84439; 84443; 85025; 85652; 86038; 86140; 86431; 86592; 86617; 86618; 86706; 86803; 87340; 87389

== ENCOUNTER 2025-04-17 14:10 | Outpatient (REF) | payer BC, SELFPAY ==
--- NOTE | 2025-04-17 | EMG_ITS ---
Chief complaint: Bilateral hand numbness Reason for referral: Evaluate for Carpal Tunnel Syndrome Referred by: Dr. Hunter Procedure done: Bilateral upper extremities NCS/EMG Precautions and/or limitations: None Estonian speaking, seen with lip cutter. The limb temperature was monitored continuously and remained between 32-36 degrees C during the performance of the NCS. Nerve Conduction Studies Anti Sensory Summary Table ?Stim Site NR Onset (ms) Norm Onset (ms) Peak (ms) Norm Peak (ms) O-P Amp (?V) Norm O-P Amp Site1 Site2 Delta-0 (ms) Dist (cm) Shashank (m/s) Norm Shashank (m/s) Left Median Anti Sensory (2nd Digit) Wrist ? 3.8 4.8 <3.6 20.8 >10 Wrist 2nd Digit 3.8 14.0 37 Right Median Anti Sensory (2nd Digit) Wrist ? 4.0 4.8 <3.6 11.2 >10 Wrist 2nd Digit 4.0 14.0 35 Right Radial Anti Sensory (Thumb) Forearm ? 1.9 2.4 <3.1 28.1 Forearm Thumb 1.9 0.0 Left Ulnar Anti Sensory (5th Digit) Wrist ? 2.4 3.0 <3.7 38.0 >15.0 Wrist 5th Digit 2.4 14.0 58 Right Ulnar Anti Sensory (5th Digit) Wrist ? 2.4 3.0 <3.7 18.7 >15.0 Wrist 5th Digit 2.4 14.0 58 Motor Summary Table ?Stim Site NR Onset (ms) Norm Onset (ms) O-P Amp (mV) Norm O-P Amp iAmp (mV) Amp (1st) (%) Site1 Site2 Delta-0 (ms) Dist (cm) Shashank (m/s) Norm Shashank (m/s) Left Median Motor (Abd Poll Brev) Wrist ? 4.0 <3.9 11.7 >4.5 13.6 100.0 Elbow Wrist 3.3 18.0 55 >45 Elbow ? 7.3 11.3 13.5 96.6 Right Median Motor (Abd Poll Brev) Wrist ? 4.6 <3.9 14.2 >4.5 16.6 100.0 Elbow Wrist 3.1 18.0 58 >45 Elbow ? 7.7 13.9 16.2 97.9 Left Ulnar Motor (Abd Dig Minimi) Wrist ? 2.5 <3.0 5.9 >5 6.7 100.0 B Elbow Wrist 2.7 15.0 56 >45 B Elbow ? 5.2 5.7 6.6 96.6 A Elbow B Elbow 1.1 10.0 91 >45 A Elbow ? 6.3 5.8 6.8 98.3 Right Ulnar Motor (Abd Dig Minimi) Wrist ? 2.3 <3.0 7.0 >5 8.5 100.0 B Elbow Wrist 2.9 15.0 52 >45 B Elbow ? 5.2 7.0 8.6 100.0 A Elbow B Elbow 1.0 10.0 100 >45 A Elbow ? 6.2 6.9 8.6 98.6 EMG ?Side Muscle Nerve Root Ins Act Fibs Psw Amp Dur Poly Recrt Int Pat Comment Right 1stDorInt Ulnar C8-T1 Nml Nml Nml Nml Nml 0 Nml Complete Right FlexCarRad Median C6-7 Nml Nml Nml Nml Nml 0 Nml Complete Right Biceps Musculocut C5-6 Nml Nml Nml Nml Nml 0 Nml Complete Right Triceps Radial C6-7-8 Nml Nml Nml Nml Nml 0 Nml Complete Right Deltoid Axillary C5-6 Nml Nml Nml Nml Nml 0 Nml Complete Left 1stDorInt Ulnar C8-T1 Nml Nml Nml Nml Nml 0 Nml Complete Left FlexCarRad Median C6-7 Nml Nml Nml Nml Nml 0 Nml Complete Left Biceps Musculocut C5-6 Nml Nml Nml Nml Nml 0 Nml Complete Left Triceps Radial C6-7-8 Nml Nml Nml Nml Nml 0 Nml Complete Left Deltoid Axillary C5-6 Nml Nml Nml Nml Nml 0 Nml Complete FINDINGS: Bilateral median motor nerves showed prolonged distal latency, normal amplitude and normal conduction velocity. Bilateral median sensory nerves showed prolonged peak latency. All other nerves tested were within normal. Concentric needle EMG was performed in selected muscles of the bilateral upper extremities. Study did not reveal signs of electric abnormalities as shown in the table above. IMPRESSION: 1. This is an abnormal study. 2. There is electrodiagnostic evidence for bilateral moderate-severe median neuropathy at the wrist, consistent with carpal tunnel syndrome. 3. There is no electrodiagnostic evidence for ulnar neuropathy, brachial plexopathy, or cervical radiculopathy. Thank you for your kind referral. Lesly Andres MD, TOÑA Board Certified, [place] Board [employer] Physical Medicine and Rehabilitation (ABPMR) Board Certified, [place] Board of Electrodiagnostic Medicine (ABEM) CODIN [phone] x 2 MTDD
--- OUTSIDE RECORDS SUMMARY | 2025-04-17 14:13 | XMS_ITS | Encounter Summary ---
Author Organization [employer] Address [address] [facility] 7t [place] [address] Care Team Providers Care Patient Scheduling Manager Name Role Phone Stefania Hunter DO Primary Care Provider [phone] Encounter Details Date Type Department Care Team (Late st Contact Info) Description 08/03/2023 Abstract [facility] [address] [place] [address] Stefania Hunter DO [address] [place] [address] Social History Tobacco Use Types Packs/Day Years [...] on filedocumented in this encounter Care Teams Patient Scheduling Manager Relationship Specialty Start Date End Date Stefania Hunter DO [address] [place] [address] PCP - General Family Medicine 11/05/18 documented as of this encounter
== END 2025-04-17 14:11 | disposition home or self-care (01) ==
LOC: HO.NEURO 14:10
PROVIDERS: PCP Family Medicine; Visit Provider Family Medicine
DX: R20.2 Paresthesia of skin (principal); M79.601 Pain in right arm; M79.602 Pain in left arm
CPT/HCPCS: 95886; 95911

== ENCOUNTER → 2025-04-17 14:15 | Outpatient (BNV) | payer BC, SELFPAY | PROVIDERS: PCP Family Medicine; Visit Provider Physical Medicine & Rehabilitation | DX: G56.03 Carpal tunnel syndrome, bilateral upper limbs (principal) | CPT/HCPCS: 95886; 95911 ==

== ENCOUNTER 2025-06-05 14:04 | Emergency (ER) | payer OTHER, SELFPAY ==
--- NOTE | ~2025-06-05 | CT_ITS ---
EXAMINATION: CT CERVICAL SPINE WITHOUT CONTRAST CLINICAL INFORMATION: Left lateral neck pain. Left upper extremity weakness. COMPARISON: None available. TECHNIQUE: Contiguous axial images through the cervical spine using 3 mm collimation with bone and soft tissue algorithm. Sagittal and coronal reformatted images acquired. DLP: [address] examination was performed using dose optimization techniques as appropriate, variously including the following: *Automated exposure control *Adjustment of mA and/or kV according to patient size (this includes techniques or standardized protocols for targeted exams where dose is matched to indication/reason for exam; i.e. extremities or head) *Use of iterative reconstruction technique FINDINGS: Craniocervical junction is intact with normal alignment between the occipital condyles and the lateral masses of C1. Anterior and posterior marginal osteophyte formation at C5-6 and to a lesser extent C6-7. Mild endplate sclerosis and decreased intervertebral disc height at C5-6 and C6-7. Mild reverse curvature apex at C5-6. No gross malalignment. There is central spinal canal stenosis and left neuroforamina and stenosis at C5-6 on a degenerative basis. C1 is intact. C2 is intact. C3 is intact. C4 is intact. C5 is intact. C6 is intact. C7 is intact. No prevertebral compartment hematoma mass or fluid collection. The thyroid gland is not enlarged. Tympanic cavities and mastoid cells are aerated. CT/CT cervical spine wo IV con IMPRESSION: Cervical spondylosis C5-6 and to a lesser extent C3-4 and C6-7 levels resulting in central spinal canal and left neuroforamina and stenosis and C5-6. Fleischner guidelines were followed. Electronically signed by: Bulmaro Best MD 06/05/2025 03:34 PM EDT
[2025-06-05 14:14] VITALS: BP 119/71; PULSE 87; RESP 16; TEMP 36.9; O2SAT 97; BMI 26.6
--- NOTE | 2025-06-05 14:15 | ED.GENADULT ---
HPI - General Adult General Chief complaint: Neck Pain/Injury Stated complaint: Pain from left side of neck down to should Time Seen by Provider: 06/05/25 15:50 Source: patient Mode of arrival: ambulatory Limitations: language barrier (Brazilian-speaking diplomatic interpreter/translator utilized) History of Present Illness ED Provider: kwaku goldsmith np HPI narrative: Patient is a 50-year-old female who presents emergency department for evaluation of left lateral knee pain into the posterior shoulder and to the left upper extremities. Onset 1 week ago, was appointment topical pain patches, worsening today, with limited range of motion to the right shoulder subjective weakness to the left hand. Denies headache, recent head injury, use of anticoagulants. NIH score of 0. Related Data Home Medications ?Medication ?Instructions ?Recorded ?Confirmed baclofen 10 mg tablet 10 mg PO BID PRN muscle spasm 08/23/22 08/23/22 phentermine 37.5 mg capsule 37.5 mg PO QAM 08/23/22 08/23/22 Previous Rx's ?Medication ?Instructions ?Recorded gabapentin 100 mg capsule 100 mg PO BID #20 caps 06/05/25 prednisone 20 mg tablet 40 mg (2 x 20 mg) PO DAILY #10 tabs 06/05/25 Allergies Allergy/AdvReac Type Severity Reaction Status Date / Time morphine (MORPHINE) Allergy Intermediate STOMACH Verified 06/05/25 14:23 UPSET, severe abd pain metronidazole (Flagyl) Allergy Unknown Fainting Verified 06/05/25 14:23 spell, dizziness, headache Penicillins (PENICILLINS) Allergy Unknown HIVES Verified 06/05/25 14:23 Biaxin Allergy Unknown headache Uncoded 08/23/22 14:28 pain med given in ER Allergy Unknown ? ER Uncoded 08/23/22 14:28 Review of Systems Review of Systems: Yes all other systems are reviewed and are negative PMFSH Past Medical History Attestation statement: The following information was validated with the patient. Source: old records reviewed Medical History H. pylori infection Cholecystectomy planned Anemia Surgical History H/O breast biopsy History of cystoscopy (03/2012) History of esophagogastroduodenoscopy (EGD) (05/2014) Hx of appendectomy (07/2011) Tubal ligation status Hx of section Social History Social History Alcohol intake: never Patient Tobacco Use Status: Never used Tobacco Physical Exam ED Exam Exam: Appearance: Alert.?Oriented to person, place and time. No acute distress.?Normal affect. Eyes: Pupils equal, round and reactive to light.? ENT: Pharynx normal.?? Neck: Normal inspection.? Neck supple.??No midline cervical spine tenderness, step-offs, deformities. Palpable tenderness along the left SCM/trapezius muscle. CVS: Heart sounds normal. Normal heart rate and rhythm.? Pulses normal.?? Respiratory: No respiratory distress.? Lung sounds clear to auscultation bilaterally??? Skin: Skin warm and dry.? Normal skin color. No rashes or lesions Extremities: No lower extremity edema.? Mild decreased AROM to the left shoulder. Neuro: Moves all extremities spontaneously. Sensation intact bilaterally. CN II-XII intact. No focal neuro deficits. Ambulates with normal steady gait. Vital Signs: Vital Signs - 24 hr 06/05/25 14:14 Temperature 98.4 F Pulse Rate 87 Respiratory Rate 16 Blood Pressure 119/71 Pulse Oximetry 97 Oxygen Delivery Method Room Air BMI result Body Mass Index 26.6 NIH Stroke Scale Internal: Initial- Upon Arrival Level of Consciousness: Alert Level of Consciousness Questions: Answers both questions correctly Level of Consciousness Commands: Performs both tasks correctly Best Gaze: Normal Visual: No visual loss Facial Palsy: Normal Motor Arm (Right): No drift Motor Arm (Left): No drift Motor Leg (Right): No drift Motor Leg (Left): No drift Limb Ataxia: Absent Sensory: Normal Best Language: No aphasia Dysarthia: Normal Extinction and Inattention: No abnormality Score: 0 Medical Decision Making Medical Decision Making MDM Narrative: Patient is a 50-year-old female who presents emergency department for evaluation of atraumatic left lateral neck pain radiating to the left arm with subjective weakness. On examination there is no appreciable weakness or neurological deficits. She has tenderness upon palpation to the left SCM and trapezius muscle, with mild decreased AROM to the right shoulder without obvious deformity. No erythema or warmth that would favor a septic joint. No midline cervical spine tenderness, step-offs, deformities. Unlikely to have acute fracture or subluxation of the cervical spine given no precipitating injury. CT imaging was obtained to evaluate for possible etiologies of cervical radiculopathy, revealing spondylosis of C5-C6 with central stenosis and neural foraminal stenosis. Reviewed conservative treatment, provided with a course of oral steroids in addition to gabapentin for unrelieved pain. Discussed outpatient follow-up with primary care provider, they may consider a course physical therapy and/or referral to a neck/back specialist should her symptoms not improve. She was given strict return precautions. All questions answered. Differential Diagnosis Differential Diagnoses: The differential diagnosis associated with the presentation includes (See narrative above) Admission/Observation Consideration of admission/observation: Escalation of care including admission/observation considered Independent Interpretation I performed an independent interpretation of an: CT Scan (No fracture subluxation of the cervical spine) Radiology Impression Discussion of test interpretation with radiology: I have reviewed the radiologist's reading. Radiologist Impression: CT/CT cervical spine wo IV con IMPRESSION: Cervical spondylosis C5-6 and to a lesser extent C3-4 and C6-7 levels resulting in central spinal canal and left neuroforamina and stenosis and C5-6. External Record Review External record reviewed: Outpatient record Prescription Management I considered prescription management with: Pain Medication Discharge Plan Discharge Clinical Impression: Cervical spondylosis, Neuroforaminal stenosis of cervical spine Patient Disposition: Home, Self-Care Instructions: Cervical Spinal Stenosis (ED), Neck Pain (ED) Additional Instructions: Imaging today shows that you have arthritic changes to the lower portion of your cervical spine as well as narrowing likely resulting in pressure/compression to the nerves associated with a sensation through your shoulder and down your arm. You are being given a prescription for prednisone to take daily with food to prevent stomach upset to decrease inflammation and help with pain. If you are symptoms are unrelieved with the prednisone you may take the gabapentin only as needed. As discussed, this medication may make you drowsy, you should not drive, drink alcohol, or work while taking this medication. You must follow up with your primary care doctor for any persistent symptoms, they may consider a course of physical therapy and/or referring you to a neck/back specialist. You are being given a work note today to cover you for today as well as the next 2 days. If you feel that you are still unable to return to work afterwards, your primary care doctor will need to coordinate additional leave of absence note for you as you may qualify at that point for short-term disability/leave. Prescriptions: New prednisone 20 mg tablet 40 mg PO DAILY Qty: 10 0RF gabapentin 100 mg capsule 100 mg PO BID Qty: 20 0RF No Action baclofen 10 mg tablet 10 mg PO BID PRN (Reason: muscle spasm) phentermine 37.5 mg capsule 37.5 mg PO QAM Referrals: Stefania Hunter DO [Primary Care Provider, Internal Medicine] Stand Alone Forms: Work/School Release Print Language: Brazilian
--- OUTSIDE RECORDS SUMMARY | 2025-06-05 16:01 | XMS_ITS ---
Author Name [facility] Organization Unknown Care Team Organization Name Specialty Phone Email Start Date End Da te [facility] Termed, PROVIDER Primary Care 09/12/202206/05
--- OUTSIDE RECORDS SUMMARY | 2025-06-05 16:01 | XMS_ITS | Encounter Summary ---
Author Organization [employer] Address [address] [facility] [address] [place] [address] Care Team Providers Care Storekeeper Helper Name Role Phone Stefania Hunter DO Primary Care Provider + [phone] Encounter Details Date Type Department Care Team (Late st Contact Info) Description 08/03/2023 Abstract [facility] MEDICINE [address] [place] [address] Stefania Hunter DO [address] [place] [address] Social History Tobacco Use Types Packs/Day Years [...] on filedocumented in this encounter Care Teams Storekeeper Helper Relationship Specialty Start Date End Date Stefania Hunter DO [address] [place] [id number] PCP - General Family Medicine 11/05/18 documented as of this encounter
[2025-06-05 16:08] VITALS: BP 119/71; PULSE 87; RESP 16; TEMP 36.9; O2SAT 97
== END 2025-06-05 16:08 | disposition home or self-care (01) ==
PROVIDERS: Emergency Provider Emergency Medicine Emergency Medical Services; PCP Family Medicine
DX: M47.892 Other spondylosis, cervical region (principal); M48.02 Spinal stenosis, cervical region; M25.562 Pain in left knee; M25.512 Pain in left shoulder
CPT/HCPCS: 72125; 99282; 99284

== ENCOUNTER → 2025-06-05 14:23 | Outpatient (BNV) | payer OTHER, SELFPAY | PROVIDERS: Emergency Provider Emergency Medicine Emergency Medical Services; PCP Family Medicine; Visit Provider Radiology Diagnostic Radiology | DX: M47.812 Spondylosis without myelopathy or radiculopathy, cervical region (principal); M99.01 Segmental and somatic dysfunction of cervical region | CPT/HCPCS: 72125 ==

== ENCOUNTER 2025-07-15 12:55 | Outpatient (AMB) | payer OTHER, SELFPAY ==
--- NOTE | 2025-07-15 13:08 | HO.SPINEOV ---
Vital Signs 07/15/25 13:09 Height 5 ft 2 in Weight 160 lb BMI 29.3 Intake Visit Reasons: Neck pain & aiden hand numbness Intake Note: Ms. Elizondo is here today c/o neck pain with numbness down her arms. Technical Asst Required: Yes Technical Asst Services: Technical Asst Present Technical Asst Name: Petrona Pa LM Allergies morphine (MORPHINE) Allergy (Intermediate, Verified 07/15/25 13:10) STOMACH UPSET, severe abd pain metronidazole (Flagyl) Allergy (Unknown, Verified 07/15/25 13:10) Fainting spell, dizziness, headache Penicillins (PENICILLINS) Allergy (Unknown, Verified 07/15/25 13:10) HIVES Biaxin Allergy (Unknown, Uncoded 08/23/22 14:28) headache pain med given in ER Allergy (Unknown, Uncoded 08/23/22 14:28) ? ER Physical Exam Vital Signs: BMI result Body Mass Index 29.3 Assessment & Plan Assessment & Plan (1) Cervical radiculopathy: Code(s): M54.12 - Radiculopathy, cervical region Category: Medical Plan [This visit was conducted with live drilling machine runner services utilizing the aid of our manager medical device Petrona Mackenzie who is a certified drilling machine runner here at [facility].] Dear Dr. Hunter, Thank you for referring Alia to our office today. She is a pleasant 50-year-old Emirati-speaking female who comes in today for evaluation of neck pain and shooting pain into her left upper extremity. She reports that this has been ongoing for multiple years, and feels as though it is worsening. She denies any known inciting incident for the pain. When describing the pain she states that it starts in the back of her neck shoots into her left shoulder, in over the dorsal surface of her left arm terminating somewhere near the wrist. In addition to this she also has hand numbness diffusely throughout the hand bilaterally. She denies any burning sensation associated with the pain. She does report that she frequently will wake up overnight with her hands completely numb, with a cramping pain in her hands. In addition to this her hands go numb while performing certain activities such as texting on her phone. She reports some issues with balance/falls, and can recount a few instances where she fell when she did not feel like she should have. She reports no significant issues with dexterity, and denies any bowel/bladder issues. She has attempted [id number] medications in an effort to help treat her pain, however reports they were not particularly effective. She has attempted physical therapy, and is continuing to do physical therapy exercises at home, despite minimal pain relief. She has not attempted cortisone injections in her neck. PMH: Carpal tunnel syndrome both wrists (EMG report is in incoming medical records), depression, neuropathy, asthma. The patient denies any surgical history/implantable devices. Social hx: The patient does not smoke, reports no substance use. Medications: Baclofen, gabapentin, phentermine, prednisone. Allergies: Morphine, Flagyl, penicillin, Biaxin. Physical exam: The patient has about 4/5 strength with bilateral hand occupational work experience teacher. The rest of her strength is 5/5 in her upper and lower extremities. She ambulates well with a non spastic nonantalgic gait. She has no significant sensational deficits reported on examination aside from the bilateral hand numbness previously described in HPI. Her reflexes are 2+ intact in the upper and lower extremities. (+) bilateral Tinel's at the wrist. (+) bilateral Phalen's. (-) Payan's, (-) clonus, (-) bilateral straight leg raise. Imaging review: CT of the cervical spine completed here at [facility] shows multilevel degenerative changes of the cervical spine with notable straightening of the normal cervical lordosis. There is anterior osteophyte bridging at C5-6, C6-7. Degree of compression of neuro-anatomy is difficult to assess on CT imaging. EMG shows moderate-severe bilateral median neuropathy. Impression: Alia is a pleasant 50-year-old female who comes in today for evaluation of gradually worsening neck pain and shooting pains down her left upper extremity. In addition to this she has an established diagnosis of bilateral carpal tunnel syndrome, and her most recent EMG states that she had moderate-severe median neuropathy bilaterally. Her clinical picture is most consistent with bilateral carpal tunnel syndrome, more with a component of cervical radiculopathy which is responsible for the shooting pains down her left arm. Given that the patient only as CT scan imaging in his difficult to assess the neuro anatomy and determine if impingement of the cervical nerves in the left-hand side are contributing to her symptoms. I would like to send the patient for a cervical MRI, then follow up with her in clinic to discuss potential surgical recommendations. If her MRI imaging is unremarkable, in his likely we will offer her a carpal tunnel release at the very least. Thank you for allowing us to care for your patient. The total time spent with this visit with this patient was 45 minutes reviewing history, physical exam, MRI imaging review, and implementation of treatment plan or further diagnostic testing Pio Stephenson MD,PhD [facility] Orders: Orders MR cervical spine wo con Today M54.12 - Radiculopathy, cervical region Coding Level of Care Code New Pt Level 4 (70938) Diagnoses Cervical radiculopathy M54.12
[2025-07-15 13:09] VITALS: BMI 29.3
--- OUTSIDE RECORDS SUMMARY | 2025-07-15 15:56 | XMS_ITS | Encounter Summary ---
Author Organization [employer] Address [address] [facility] [address] [place] [address] Care Team Providers Care Ivory Polisher Name Role Phone Stefania Hunter DO Primary Care Provider [phone] Reason for Visit * Reason Onset Date Comments Nurse Triage 01/13/2025 Encounter Details Date Type Department Care Team ([facility] st Contact Info) Description 01/13/2025 Telephone [facility] MEDICINE [address] [place], [place] [phone] Stefania Hunter DO [address] [place] [address] Nurse Triage Social History Tobacco Use Types [...] acuity questions The caller accepted this outcome. [phone] maori documented in this encounter Plan of Treatment Not on file documented as of this encounter Visit Diagnoses Not on filedocumented in this encounter Care Teams Ivory Polisher Relationship Specialty Start Date End Date Stefania Hunter DO [address] [place] [address] PCP - General Family Medicine 11/05/18 documented as of this encounter
--- OUTSIDE RECORDS SUMMARY | 2025-07-15 15:56 | XMS_ITS | Encounter Summary ---
Author Organization [employer] Address [address] [facility] [address] [place] [address] Care Team Providers Care Deli Worker Name Role Phone Stefania Hunter DO Primary Care Provider [phone] Encounter Details Date Type Department Care Team (Late st Contact Info) Description 08/03/2023 Abstract [facility] MEDICINE [address] [place] [address] Stefania Hunter DO [address] [place] [address] Social History Tobacco Use Types Packs/Day Years [...] on filedocumented in this encounter Care Teams Deli Worker Relationship Specialty Start Date End Date Stefania Hunter DO [address] [place] [id number] PCP - General Family Medicine 11/05/18 documented as of this encounter
--- OUTSIDE RECORDS SUMMARY | 2025-07-15 15:57 | XMS_ITS | Encounter Summary ---
Author Organization [employer] Address [address] [place] [address] [address] [place] [address] Care Team Providers Care Carton Forming Machine Tender Name Role Phone Setfania Hunter DO Primary Care Provider + [phone] Reason for Visit * Reason Onset Date Comments Appointment Request 05/20/2024 Encounter Details Date Type Department Care Team ([facility] st Contact Info) Description 05/20/2024 Telephone [facility] MEDICINE [address] [place], [place] [phone] Stefania Hunter DO [address] [place] [address] Appointment Request Social History Tobacco Use Types [...] on filedocumented in this encounter Care Teams Carton Forming Machine Tender Relationship Specialty Start Date End Date Stefania Hunter DO [address] [place] [address] PCP - General Family Medicine 11/05/18 documented as of this encounter
--- OUTSIDE RECORDS SUMMARY | 2025-07-15 15:57 | XMS_ITS | Clinical Summary ---
Author Organization [employer] Address 75 [facility] 7t [place] [address] Care Team Providers Care Fruit Room Hand Name Role Phone Stefania Hunter Primary Care Provider [phone] Allergies Active Allergy Reactions Criticality Noted Date [...] 30 capsule 3 5 03/03/20 26 Active Active Problems Problem Noted Date Diagnosed [...] Encounters Date Type Department Care Team Description 06/29/2025 Telephone [facility] [place] [address] Stefania Hunter DO Referral; Care Coordination 06/03/2025 Orders Only [facility] [place] [address] Stefania Hunter DO Bilateral carpal tunnel syndrome (Primary Dx) 05/02/2025 Telephone [facility] [place] [address] Stefania Hunter DO Results 04/22/[address] [address] Jurcsak, Stefania, DO Results from Last 3 Months Immunizations Immunization Administration Dates Next Due Influenza injectable quadriv [...] drink = 0.6 oz pur e alcohol) Depression Answer Date Recorded Patient Health Questionnaire-9 Score 1 03/04/2025 Patient Health Questionnaire-9 Score 1 03/04/2025 Last PHQ-9: Questionnaire Data Not on file 0 03/04/2025 Housing Stability Answer Date Recorded What is your housing situation today? I have issa siegel 03/04/[address] you li ve. Do you have problems with any of the following? None of the above 03/04/2025 Food Insecurity Answer Date Recorded Within the past 12 months, y ou worried that your food would run out before you got money to buy more: Never True 03/04/2025 Within the past 12 months,th e food you bought just didn't last and you didn't have enough money to get more: Never True Transportation Answer Date Recorded In the past 12 months, has l ack of transportation kept you from medical appts, meetings, work or from getting things needed for daily living? No 03/04/2025 Utilities Answer Date Recorded In the past 12 months, has t he electric, gas, oil or water company threatened to shut off services in your home? No 03/04/2025 Depression Answer Date Recorded Patient Health Questionnaire-2 Score 0 03/04/2025 Internet Access Answer Date Recorded Internet Access Q1 Yes 03/04/2025 Internet Access Q2 Not on file 03/04/2025 Comments Unknown Sex and Gender Information Value Date Recorded Sex Assigned at Female 09/04/2022 10:20 AM EDT Legal Sex Female 10:20 AM EDT Gender Identity Female 09/04/2022 10:20 AM EDT Sexual Orientation Straight 09/04/2022 10 :20 AM EDT Last Filed Vital Signs Vital Sign Reading Time Taken Comments Blood Pressure 126/78 03/03/2025 11:43 AM EDT Pulse 89 03/03/2025 11:43 AM EDT Temperature 36.9 C (98.5 F) 03/03/2025 11:43 AM EDT Respiratory Rate 20 03/03/2025 11:43 AM EDT Oxygen Saturation 99% 03/03/2025 11:43 AM EDT Inhaled Oxygen Concentration - - Weight 68.1 kg (150 lb 2 oz) 03/03/2025 11:43 AM EDT Height 157.5 cm (5' 2 ) 03/03/2025 11:43 AM EDT Body Mass Index 27.46 03/03/2025 11:43 AM EDT Plan of Treatment Health Maintenance Due Date Last Done Comments CT Colonography 1973 Colonoscopy 1973 Colorectal Cancer Screening 1973 FIT DNA/Cologuard 1973 FIT 1973 FOBT 1973 Sigmoidoscopy 1973 Disability Screening 1973 Family Planning (PISQ) 1988 Hepatitis B Vaccines (1 of 3 - 19+ 3-dose series) 1992 Pneumococcal Vaccine: 50+ Years (1 of 1 - PCV) 2023 Zoster Vaccines (1 of 2) 2023 COVID-19 Vaccine ( - season) 2025 09/11/2021, 03/05/2021, 02/12/2021 Influenza Vaccine (#1) 2025 9, 07/25/2018, 09/04/2017, Additional history exists Mammogram 12/27/2025 12/27/2023, 09/2 04/2022, 01/29/2019 Tobacco Screening 03/03/2026 03/03/2025 Alcohol/Substance Use Screening 03/04/2026 03/04/2025 Depression Screening 03/04/2026 03/04/2025, 03/04/20 SDOH Screening 03/04/2026 03/04/2025 Cervical Cancer Screening 03/30/2026 HPV/Cotest 03/30/2026 03/30/2021, 03/06, 03/30/2021, Additional history exists Pap Smear 03/30/2026 03/30/2021 DTaP/Tdap/Td Vaccines (3 - Td or Tdap) 06/26/2032 06/26/2022, 10/20/2009 RSV Patients and Patients Aged 60 years or older (1 - 1-dose 75+ series) 2048 HIV Screening Completed 04/06/2025, 06/05, 01/21/2021 Hepatitis C Screening Completed 04/06/2025 , 06/23/2022, 01/21/2021 HIB Vaccines Aged Out No longer eligi [...] patient's age to complete this topic Meningococcal B Vaccine Aged Out No l onger eligible based on patient's age to complete [...] Procedure Name Priority Date/Time Associated Diagnosis Comments CT CERVICAL SPINE WO CONTRAST Routine 06/05/2025 2:46 PM EDT NERVE CONDUCTION TEST Routine 04/17/2025 Paresthesia and pain of both upper extremities HEPATITIS C AB W/REFL TO HCV RNA, QN, PCR Routine 04/06/2025 10:15 AM EDT Paresthesia and pain of both upper extremities BMI 27.0-27.9,adult HIV 1/2 ANTIGEN/ANTIBODY, FOURTH GENERATION W/RFL Routine 04/06/2025 10:15 AM EDT Paresthesia and pain of both upper extremities BMI 27.0-27.9,adult BI MAMMOGRAM SCREENING TOMOSYNTHESIS BILATERAL Routine 12/27/2023 1:20 PM EST HM PAP/HPV Routine 03/30/2021 from Last 3 Months or Most Recently Relevant to Health Maintenance Results * CT Cervical Spine w/o Contrast (06/05/2025 2:46 PM EDT) Anatomical Region Laterality Modality Spine, C-spine Computed Tomogra phy 06/05/2025 2:46 PM EDT Narrative 06/05/2025 3:37 PM EDT [address] [address] [address] Scan Report Signed Patient: Alia Elizondo MR#: [id number] 62 : 1975 Acct:[id number] Age/Sex: 50 / F ADM Date: 06/05/25 Loc: HO.ED Attending Dr: Ordering Physician: Aiyana Lange CNP Date of Service: 06/05/25 Procedure(s): CT cervical spine wo IV con Accession Number(s): [id number] cc: Aiyana Lange CNP; Stefania Hunter DO Report Number: [id number]: Total DLP = 381.00 mGy-cm EXAMINATION: CT CERVICAL SPINE WITHOUT CONTRAST CLINICAL INFORMATION: Left lateral neck pain. Left upper extremity weakness. COMPARISON: None available. TECHNIQUE: Contiguous axial images through the cervical spine using 3 mm collimation with bone and soft tissue algorithm. Sagittal and coronal reformatted images acquired. DLP: [address] examination was performed using dose optimization techniques as appropriate, variously including the following: *Automated exposure control *Adjustment of mA and/or kV according to patient size (this includes techniques or standardized protocols for targeted exams where dose is matched to indication/reason for exam; i.e. extremities or head) *Use of iterative reconstruction technique FINDINGS: Craniocervical junction is intact with normal alignment between the occipital condyles and the lateral masses of C1. Anterior and posterior marginal osteophyte formation at C5-6 and to a lesser extent C6-7. Mild endplate sclerosis and decreased intervertebral disc height at C5-6 and C6-7. Mild reverse curvature apex at C5-6. No gross malalignment. There is central spinal canal stenosis and left neuroforamina and stenosis at C5-6 on a degenerative basis. C1 is intact. C2 is intact. C3 is intact. C4 is intact. C5 is intact. C6 is intact. C7 is intact. No prevertebral compartment hematoma mass or fluid collection. The thyroid gland is not enlarged. Tympanic cavities and mastoid cells are aerated. CT/CT cervical spine wo IV con IMPRESSION: Cervical spondylosis C5-6 and to a lesser extent C3-4 and C6-7 levels resulting in central spinal canal and left neuroforamina and stenosis and C5-6. Fleischner guidelines were followed. Electronically signed by: Bulmaro Best MD 06/05/2025 03:34 PM EDT RP Dictated By: Bulmaro Gillis MD Signed By: <Electronically signed by Bulmaro Gagnon MD in OV> 06/05/25 1534 DD/ 1446 TD/TT: 06/05/25 1501 Vice President Of Nursing: Procedure Note Donotuseinterpreter, Image - 06/05/[address] [place] [address] [address] Scan Report Signed Patient: Alia Elizondo#: [id number] 62 : 1975Acct:[id number] Age/Sex: 50 / FADM Date: 06/05/25 Loc: HO.ED Attending Dr: Ordering Physician: Aiyana Lange CNP Date of Service: 06/05/25 Procedure(s): CT cervical spine wo IV con Accession Number(s): [id number] cc: Aiyana Lange CNP; Stefania Hunter DO Report Number: [id number]: Total DLP = 381.00 mGy-cm EXAMINATION: CT CERVICAL SPINE WITHOUT CONTRAST CLINICAL INFORMATION: Left lateral neck pain. Left upper extremity weakness. COMPARISON: None available. TECHNIQUE: Contiguous axial images through the cervical spine using 3 mm collimation with bone and soft tissue algorithm. Sagittal and coronal reformatted images acquired. DLP: [address] examination was performed using dose optimization techniques as appropriate, variously including the following: *Automated exposure control *Adjustment of mA and/or kV according to patient size (this includes techniques or standardized protocols for targeted exams where dose is matched to indication/reason for exam; i.e. extremities or head) *Use of iterative reconstruction technique FINDINGS: Craniocervical junction is intact with normal alignment between the occipital condyles and the lateral masses of C1. Anterior and posterior marginal osteophyte formation at C5-6 and to a lesser extent C6-7. Mild endplate sclerosis and decreased intervertebral disc height at C5-6 and C6-7. Mild reverse curvature apex at C5-6. No gross malalignment. There is central spinal canal stenosis and left neuroforamina and stenosis at C5-6 on a degenerative basis. C1 is intact. C2 is intact. C3 is intact. C4 is intact. C5 is intact. C6 is intact. C7 is intact. No prevertebral compartment hematoma mass or fluid collection. The thyroid gland is not enlarged. Tympanic cavities and mastoid cells are aerated. CT/CT cervical spine wo IV con IMPRESSION: Cervical spondylosis C5-6 and to a lesser extent C3-4 and C6-7 levels resulting in central spinal canal and left neuroforamina and stenosis and C5-6. Fleischner guidelines were followed. Electronically signed by: Bulmaro Best MD 06/05/2025 03:34 PM EDT Dictated By: Bulmaro Gillis MD Signed By: <Electronically signed by Bulmaro Gagnon MDin OV> 06/05/25 1534 DD/ 1446 TD/TT: 06/05/25 1501 Vice President Of Nursing: [facility] External Provider IMG CT PROCEDURES Final Result * Nerve conduction test (04/17/2025) Stefania Hunter DO NEUROLOGY ORDERABLES Final R esult * Hepatitis C Antibody with Reflex to HCV, RNA, Quantitative, Real-Time PCR (04/06/2025 10:15 AM EDT) Hepatitis C Antibody Nonreactive Nonreactive [facility] Comment:Antibodies to HCV no t detected; does not exclude early acuteHCV infection. Blood Venous blood specimen / Unknown 04/06/2025 10:15 AM EDT 04/06/2025 11:23 AM EDT Stefania Hunter DO LAB BLOOD ORDERABLES Final R esult Performing Organization Address [facility]/ZIP Co de Phone Number [facility] [address] [place] [phone] * HIV-1/2 Antigen and Antibodies, Fourth Generation, with Reflexes (04/06/2025 10:15 AM EDT) HIV AB/AG Nonreactive Nonreactive [facility] Comment:HIV-1 p24 Ag and/or HIV-1/HIV-2 Ab not detected.A test result that is nonreactive does not exclude thepossibility of exposure to or infection with HIV-1 and/orHIV-2. Nonreactive results in this assay for individualswith prior exposure to HIV-1 and/or HIV-2 may be due toantigen and antibody levels that are below the limit ofdetection of this assay.The [employer] HIV Ag/Ab Combo assay result andsupplemental assay results should be interpreted inconjunction with the patient's clinical presentation,history and other laboratory results. If the results areinconsistent with clinical evidence, additional testing issuggested to confirm the result. Blood Venous blood specimen / Unknown 04/06/2025 10:15 AM EDT 04/06/2025 11:23 AM EDT Stefania Hunter DO LAB BLOOD ORDERABLES Final R esult Performing Organization Address City/[facility]/ZIP Co de Phone Number [facility] [address] [place] [phone] * BI Mammogram Screening Tomosynthesis Bilateral (12/27/2023 1:20 PM EST) Anatomical Region Laterality Modality Breast Bilateral Mammography 12/27/2023 1:20 PM EST Narrative 01/20/2024 7:59 AM EDT [facility] [address] [place], [place] [address] Mammography Report Signed Patient: Alia Elizondo MR#: [id number] 62 : 1975 Acct:[id number] Age/Sex: 48 / F ADM Date: 12/27/23 Loc: HO.MAMMO Attending Dr: Stefania Hunter DO Ordering Physician: Stefania Hunter DO Results: 2B enign Findings Date of Service: 12/27/23 Follow Up: 1 Year From [facility] Mammogram Procedure(s): MM tomosynthesis screening BI Accession Number(s): [id number] cc: Stefania Hunter DO EXAMINATION: MM SCREENING [...] in OV> 01/20/24 0756 DD/ 1320 TD/TT: Vice President Of Nursing: Procedure Note Donotuseinterpreter, Image - 01/21/2024 [facility] [address] [place], [place] [address] Mammography Report Signed Patient: Alia ElizondoMR#: [id number] 62 : 1975Acct:[id number] Age/Sex: 48 / FADM Date: 12/27/23 Loc: HO.MAMMO Attending Dr: Stefania Hunter DO Ordering Physician: Stefania Hunterults: 2B enign Findings Date of Service: 12/27/23Follow Up: 1 Year From Orig inal Mammogram Procedure(s): MM tomosynthesis screening BI Accession Number(s): [id number] cc: Stefania Hunter DO EXAMINATION: MM SCREENING [...] in OV> 01/20/24 0756 DD/ 1320 TD/TT: Vice President Of Nursing: Stefania Hunter DO IMG BI PROCEDURES Final Resu lt * Hm Pap Smear (03/30/2021) Pap Negative for intraephithelial lesion or malignancy Negative for intraephithelial lesion or malignancy, Other HPV Undetected Historical Provider HEALTH MAINTENANCE Final Result from Last 3 Months or Most Recently Relevant to Health Maintenance Insurance [employer] Care Teams Fruit Room Hand Relationship Specialty Start Date End Date Stefania Hunter DO [address] [place] [phone] PCP - General Family Medicine 11/05/18
--- OUTSIDE RECORDS SUMMARY | 2025-07-15 15:57 | XMS_ITS | Encounter Summary ---
Author Organization [employer] Address [address] [facility] 7t [place] [address] Care Team Providers Care Wash And Greaser Name Role Phone Stefania Hunter DO Primary Care Provider [phone] Reason for Visit * Reason Onset Date Comments Appointment Request 11/08/2023 Encounter Details Date Type Department Care Team ([facility] st Contact Info) Description 11/08/2023 Telephone [facility] MEDICINE [address] [place] [address] Stefania Hunter DO [address] [place] [address] Appointment Request Social History Tobacco Use Types [...] cancer as well. Please contact pt at [phone] documented in this encounter Plan of Treatment Not on file documented as of this encounter Visit Diagnoses Not on filedocumented in this encounter Care Teams Wash And Greaser Relationship Specialty Start Date End Date Stefania Hunter DO [address] [place] [address] PCP - General Family Medicine 11/05/18 documented as of this encounter
== END 2025-07-15 14:04 | disposition home or self-care (01) ==
LOC: HO.HNS 12:56
PROVIDERS: PCP Family Medicine; Referring Provider Family Medicine; Visit Provider Physician Assistant
DX: M54.12 Radiculopathy, cervical region (principal)
CPT/HCPCS: 99204

== ENCOUNTER 2025-07-22 13:49 | Outpatient (AMB) | payer OTHER, SELFPAY ==
--- NOTE | 2025-07-22 13:55 | A.OFFVIS_ITS ---
Vital Signs 07/22/25 13:56 Height 5 ft 2 in Weight 160 lb BMI 29.3 BP 110/70 Intake Visit Reasons: annual/DO NOT RS Strategic Consultant Required: Yes Strategic Consultant Language: Window And Door Installer Name: Ginette SERRANO Information Interpreted: non-clinical & clinical Primary Care Coordinator: Primary Care Coordinator Present (Ginette SERRANO) Accompanied by: Self / Same As Patient Allergies morphine (MORPHINE) Allergy (Intermediate, Verified 07/22/25 14:00) STOMACH UPSET, severe abd pain metronidazole (Flagyl) Allergy (Unknown, Verified 07/22/25 14:00) Fainting spell, dizziness, headache Penicillins (PENICILLINS) Allergy (Unknown, Verified 07/22/25 14:00) HIVES Biaxin Allergy (Unknown, Uncoded 07/22/25 14:00) headache pain med given in ER Allergy (Unknown, Uncoded 07/22/25 14:00) ? ER Post menopausal: Yes HPI Comments Details: Presenting for annual exam. No complaints. Last Pap/HPV was negative in 03/25 Last Mammogram was BI-RADS 2 in 12/29 No previous screening Colonoscopy PFSH Medical History H. pylori infection Cholecystectomy planned Anemia Surgical History H/O breast biopsy History of cystoscopy (03/2012) History of esophagogastroduodenoscopy (EGD) (05/2014) Hx of appendectomy (07/2011) Tubal ligation status Hx of section Family History Mother HTN (hypertension) Father Diabetes HTN (hypertension) Kidney disease Heart disease Maternal Aunt Skin cancer Social History Household Members: Spouse Housing: House Alcohol intake: former Patient Tobacco Use Status: Former Tobacco user Tobacco use type: Cigarette Cigarettes Per Day: 10 Years Smoked: 8 Current occupational status: employed Current occupation: [email or web address] Sexual orientation: Straight/Heterosexual Gender identity: Female Female Reproductive History Menstrual Age of Menarche: 10 control method: permanent sterilization Total pregnancies: 4 Full term: 3 Number of Living Children: 3 Ab spontaneous: 1 Date of last pap smear: 03/30/21 Date of Mammogram: 12/27/23 (negative) Review of Systems Const All systems reviewed & are unremarkable except as noted in HPI and below Card Reports as per HPI Resp Reports as per HPI GI Reports as per HPI and Reports no additional complaints Reports as per HPI Physical Exam Vital Signs: BMI result Body Mass Index 29.3 Const General: cooperative, healthy appearing and comfortable Chest Chest palpation & inspection: normal inspection of the chest and normal palpation of entire chest wall Breast/axilla inspection: normal inspection of the breasts and normal inspection of the axillae Breast/axilla palpation: normal palpation of the breasts, normal palpation of the axillae and no axillary lymphadenopathy Resp Effort & Inspection: normal respiratory effort Auscultation: clear to auscultation bilaterally Percussion: percussion normal Cardio Palpation: normal PMI Rate: regular rate Rhythm: regular rhythm Heart sounds: no murmurs and no rubs Peripheral pulses: Peripheral pulses 2+ throughout GI Inspection: Yes normal to inspection Palpation (GI): Soft to palpation, nontender, no guarding, not rigid and No hepatosplenomegaly present Percussion: Yes normal to percussion Auscultation: normal bowel sounds Rectal Exam - Female: deferred General: Yes bladder normal to palpation External Female Exam: No lesion Speculum Exam - Vagina: normal appearance of the vagina, normal palpation, normal vaginal discharge and not erythematous Speculum Exam - Cervix: normal appearance of the cervix and normal palpation Bimanual exam- vagina & uterus: normal bimanual exam, normal palpation, uterine size normal, bladder normal to palpation, consistency normal and normal palpation Bimanual Exam- Adnexa, other: normal adnexae, no masses and no tenderness Assessment & Plan Assessment & Plan (1) Well woman exam: Code(s): Z01.419 - Encounter for gynecological examination (general) (routine) without abnormal findings Category: Medical Plan: Co testing done. Counseled the patient about the recommended dietary allowance of 1200 mg of Calcium & 600 IU of vitamin D. Mammogram ordered. The patient was referred to GI for screening colonoscopy . The patient was instructed to perform monthly self-breast exams and schedule annual exam in a year. All questions answered and the patient verbalized understanding. Orders: Orders MM tomosynthesis screening BI Today Z12.31 - Encounter for screening mammogram for malignant neoplasm of breast Referrals Gastroenterology Referral Z12.11 - Encounter for screening for malignant neoplasm of colon Coding Level of Care Code Est Pt Prev Care 40-64y([address]) Diagnoses Well woman exam Z01.419
[2025-07-22 13:56] VITALS: BP 110/70; BMI 29.3
--- OUTSIDE RECORDS SUMMARY | 2025-07-22 17:30 | XMS_ITS | Encounter Summary ---
Author Organization [employer] Address [address] [facility] [address]t [place] [address] Care Team Providers Care Informatics Educator Name Role Phone Stefania Hunter DO Primary Care Provider [phone] Reason for Visit * Reason Onset Date Comments Nurse Triage 01/13/2025 Encounter Details Date Type Department Care Team ([facility] st Contact Info) Description 01/13/2025 Telephone [facility] MEDICINE [address] [place], [place] [phone] Stefania Hunter DO [address] [place] [address] Nurse Triage Social History Tobacco Use Types [...] acuity questions The caller accepted this outcome. [phone] pashto documented in this encounter Plan of Treatment Not on file documented as of this encounter Visit Diagnoses Not on filedocumented in this encounter Care Teams Informatics Educator Relationship Specialty Start Date End Date Stefania Hunter DO [address] [place] [address] PCP - General Family Medicine 11/05/18 documented as of this encounter
--- OUTSIDE RECORDS SUMMARY | 2025-07-22 17:30 | XMS_ITS | Encounter Summary ---
Author Organization [employer] Address [address] [facility] 7t [place] [address] Care Team Providers Care Crate Icer Name Role Phone Stefania Hunter DO Primary Care Provider + [phone] Reason for Visit * Reason Onset Date Comments Appointment Request 11/08/2023 Encounter Details Date Type Department Care Team ([facility] st Contact Info) Description 11/08/2023 Telephone [facility] MEDICINE [address] [place] [address] Stefania Hunter DO [address] [place] [address] Appointment Request Social History Tobacco Use Types [...] cancer as well. Please contact pt at [phone] documented in this encounter Plan of Treatment Not on file documented as of this encounter Visit Diagnoses Not on filedocumented in this encounter Care Teams Crate Icer Relationship Specialty Start Date End Date Stefania Hunter DO [address] [place] [address] PCP - General Family Medicine 11/05/18 documented as of this encounter
--- OUTSIDE RECORDS SUMMARY | 2025-07-22 17:30 | XMS_ITS | Encounter Summary ---
Author Organization [employer] Address [address] [place] [address] [address] [place] [address] Care Team Providers Care Marketing Segment Manager Name Role Phone Stefania Hunter DO Primary Care Provider + [phone] Reason for Visit * Reason Onset Date Comments Appointment Request 05/20/2024 Encounter Details Date Type Department Care Team ([facility] st Contact Info) Description 05/20/2024 Telephone [facility] MEDICINE [address] [place], [place] [phone] Stefania Hunter DO [address] [place] [address] Appointment Request Social History Tobacco Use Types [...] on filedocumented in this encounter Care Teams Marketing Segment Manager Relationship Specialty Start Date End Date Stefania Hunter DO [address] [place] [address] PCP - General Family Medicine 11/05/18 documented as of this encounter
--- OUTSIDE RECORDS SUMMARY | 2025-07-22 17:30 | XMS_ITS | Clinical Summary ---
Author Organization [employer] Address [address] [facility] [address] [place] [address] Care Team Providers Care Retail Pharmacy Technician Name Role Phone Stefania Hunter Primary Care Provider [phone] Allergies Active Allergy Reactions Criticality Noted Date [...] Department Care Team Description 06/29/2025 Telephone [facility] [place] [place] [address] Stefania Hunter DO Referral; Care Coordination 06/03/2025 Orders Only [facility] [place] [place] [address] Stefania Hunter DO Bilateral carpal tunnel syndrome (Primary Dx) 05/02/2025 Telephone [facility] [place] [place] [address] Stefania Hunter DO Results 04/22/[address] [address] [place], Stefania, DO Results from Last 3 [...] WO CONTRAST Routine 06/05/2025 2:46 PM EDT HEPATITIS C AB W/REFL TO HCV RNA, [...] PM EDT Narrative 06/05/2025 3:37 PM EDT [place] [address] CT Scan Report Signed Patient: Alia Elizondo MR#: [id number] 62 : 1975 Acct:[id number] Age/Sex: 50 / F ADM Date: 06/05/25 Loc: .ED Attending Dr: Ordering Physician: Aiyana Lange CNP Date of Service: 06/05/25 Procedure(s): CT cervical spine wo IV con Accession Number(s): [id number] cc: Aiyana Lange CNP; Stefania Hunter DO Report Number: [id number]: Total DLP = 381.00 mGy-cm EXAMINATION: CT [...] 06/05/25 1534 DD/ 1446 TD/TT: 06/05/25 1501 Commercial Credit Analyst: Procedure Note Donotuseinterpreter, Image - 06/05/[address] [place] [address] [address] Scan Report Signed Patient: Alia ElizondoMR#: [id number] 62 : 1975Acct:[id number] Age/Sex: 50 / FADM Date: 06/05/25 Loc: HO.ED Attending Dr: Ordering Physician: Aiyana Lange CNP Date of Service: 06/05/25 Procedure(s): CT cervical spine wo IV con Accession Number(s): [id number] cc: Aiyana Lange CNP; Stefania Hunter DO Report Number: [id number]: Total DLP = 381.00 mGy-cm EXAMINATION: CT [...] 06/05/25 1534 DD/ 1446 TD/TT: 06/05/25 1501 Commercial Credit Analyst: [facility] External Provider IMG CT PROCEDURES Final Result * Hepatitis C Antibody with Reflex to HCV, RNA, Quantitative, Real-Time PCR (04/06/2025 10:15 AM EDT) Hepatitis C Antibody Nonreactive Nonreactive [facility] Comment:Antibodies to HCV no t detected; does not exclude early acuteHCV infection. Blood Venous blood specimen / Unknown 04/06/2025 10:15 AM EDT 04/06/2025 11:23 AM EDT Stefania Elsa LAB BLOOD ORDERABLES Final R esult Performing Organization Address [facility] Co de Phone Number [facility] [address] [place] [phone] * HIV-1/2 Antigen and Antibodies, Fourth Generation, with Reflexes (04/06/2025 10:15 AM EDT) HIV AB/AG Nonreactive Nonreactive [facility] Comment:HIV-1 p24 Ag and/or HIV-1/HIV-2 Ab not detected.A test result that is nonreactive does not exclude thepossibility of exposure to or infection with HIV-1 and/orHIV-2. Nonreactive results in this assay for individualswith prior exposure to HIV-1 and/or HIV-2 may be due toantigen and antibody levels that are below the limit ofdetection of this assay.The [place] HIV Ag/Ab Combo assay result andsupplemental assay results should be interpreted inconjunction with the patient's clinical presentation,history and other laboratory results. If the results areinconsistent with clinical evidence, additional testing issuggested to confirm the result. Blood Venous blood specimen / Unknown 04/06/2025 10:15 AM EDT 04/06/2025 11:23 AM EDT Stefania Hunter DO LAB BLOOD ORDERABLES Final R esult Performing Organization Address City/[facility]/ZIP Co de Phone Number [facility] [address] [place] [phone] * BI Mammogram Screening Tomosynthesis Bilateral (12/27/2023 1:20 PM EST) Anatomical Region Laterality Modality Breast Bilateral Mammography 12/27/2023 1:20 PM EST Narrative 01/20/2024 7:59 AM EDT [address] [place] [address] Mammography Report Signed Patient: Alia Elizondo MR#: [id number] 62 : 1975 Acct:[id number] Age/Sex: 48 / F ADM Date: 12/27/23 Loc: HO.MAMMO Attending Dr: Stefania Hunter DO Ordering Physician: Stefania Hunter DO Results: 2B enign Findings Date of Service: 12/27/23 Follow Up: 1 Year From Orig ina Mammogram Procedure(s): MM tomosynthesis screening BI Accession Number(s): [id number] cc: Stefania Hunter DO EXAMINATION: MM SCREENING [...] in OV> 01/20/24 0756 DD/ 1320 TD/TT: Commercial Credit Analyst: Procedure Note Donotuseinterpreter, Image - 01/21/[address] [place] [address] Mammography Report Signed Patient: Alia ElizondoMR#: [id number] 62 : 1975Acct:[id number] Age/Sex: 48 / FADM Date: 12/27/23 Loc: HO.MAMMO Attending Dr: Stefania Hunter DO Ordering Physician: Stefania Hunterults: 2B enign Findings Date of Service: 12/27/23Follow Up: 1 Year From Orig inal Mammogram Procedure(s): MM tomosynthesis screening BI Accession Number(s): [id number] cc: Stefania Hunter DO EXAMINATION: MM SCREENING [...] in OV> 01/20/24 0756 DD/ 1320 TD/TT: Commercial Credit Analyst: us Stefania Hunter DO IMG BI PROCEDURES Final Resu lt * Hm Pap Smear (03/30/2021) Pap Negative for intraephithelial lesion or malignancy Negative for intraephithelial lesion or malignancy, Other HPV Undetected us Historical Provider HEALTH MAINTENANCE Final Result from Last 3 Months or Most Recently Relevant to Health Maintenance Insurance [employer] Care Teams Retail Pharmacy Technician Relationship Specialty Start Date End Date Stefania Hunter DO [address] [place] [phone] PCP - General Family Medicine 11/05/18
--- OUTSIDE RECORDS SUMMARY | 2025-07-22 17:30 | XMS_ITS | Encounter Summary ---
Author Organization [employer] Address [address] [facility] [address] [place] [address] Care Team Providers Care Fish Peddler Name Role Phone Stefania Hunter DO Primary Care Provider [phone] Encounter Details Date Type Department Care Team (Late st Contact Info) Description 08/03/2023 Abstract [facility] [address] [place] [address] Stefania Hunter DO [address] [place] [address] Social History Tobacco Use Types Packs/Day Years [...] on filedocumented in this encounter Care Teams Fish Peddler Relationship Specialty Start Date End Date Stefania Hunter DO [address] [place] [phone] PCP - General Family Medicine 11/05/18 documented as of this encounter
== END 2025-07-22 14:43 | disposition home or self-care (01) ==
LOC: HO.HWS 13:49
PROVIDERS: PCP Family Medicine; Visit Provider Obstetrics & Gynecology
DX: Z01.419 Encounter for gynecological examination (general) (routine) without abnormal findings (principal)
CPT/HCPCS: 99396; 99459

== ENCOUNTER 2025-07-22 13:49 | Outpatient (REF) | payer OTHER, SELFPAY | END 2025-07-22 13:50 | disposition home or self-care (01) | LOC: HO.LNP 13:49 | PROVIDERS: PCP Family Medicine; Visit Provider Obstetrics & Gynecology | DX: Z01.419 Encounter for gynecological examination (general) (routine) without abnormal findings (principal); Z11.51 Encounter for screening for human papillomavirus (HPV) | CPT/HCPCS: 87626; 88175 ==

== ENCOUNTER 2025-07-27 12:51 | Outpatient (AMB) | payer OTHER, SELFPAY ==
--- NOTE | 2025-07-27 12:54 | MHC.OFFVIS ---
Vital Signs 07/27/25 13:04 Height 5 ft 2 in Weight 161 lb BMI 29.4 BP 107/67 Blood Pressure Location Lt brachial Position Sitting Pulse 87 Pulse Source Pulse Oximeter Pulse Oximetry (%) 99 Oxygen Delivery Method Room Air Intake Visit Reasons: Cervical Spinal Stenosis Intake Note: Pain today 5/10 Garnett Fixer Required: Yes Garnett Fixer Language: Gas And [employer] Checker Services: Garnett Fixer Present Garnett Fixer Name: Kalyani #[id number] Information Interpreted: non-clinical & clinical Accompanied by: Self / Same As Patient Allergies morphine (MORPHINE) Allergy (Intermediate, Verified 07/27/25 13:10) STOMACH UPSET, severe abd pain clarithromycin (From Biaxin) Allergy (Unknown, Verified 07/27/25 13:10) Headache metronidazole (Flagyl) Allergy (Unknown, Verified 07/27/25 13:10) Fainting spell, dizziness, headache Penicillins (PENICILLINS) Allergy (Unknown, Verified 07/27/25 13:10) HIVES HPI Comments Details: The patient is a 50-year-old [place]ese speaking female presenting with cervical radiculopathy. The patient reports a history of neck pain that radiates into her left upper extremity, which has been ongoing for multiple years and has been worsening over the past year. She denies any inciting events, trauma, or falls related to this pain. The pain is described as pressure, throbbing and radiating, with associated hand numbness and cramping pain in her hands, particularly at night. 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 She has attempted [id number] medications and is currently on gabapentin, with minimal relief. She has also tried physical therapy, which she continues at home, but reports no significant improvement in daily functioning. Her medical history includes bilateral carpal tunnel syndrome, depression, neuropathy, and asthma. She has previously taken prednisone with minimal relief and is currently on baclofen and gabapentin. A cervical CT scan shows multilevel degenerative changes with straightening of the normal cervical lordosis and anterior osteophyte bridging at C5-C6 and C6-C7. Cervical spondylosis C5-6 and to a lesser extent C3-4 and C6-7 levels resulting in central spinal canal and left neuroforamina and stenosis and C5-6. She is awaiting to be scheduled for cervical spine MRI. Denies prior spine injury or injections. - Onset: Pain has been present for multiple years, worsening over time. - Quality: Described as pressure, throbbing, aching and radiating; numbness and tingling left shoulder and both hands - Location: Originates in the neck, radiates to the left shoulder and arms, near the wrists. - Radiation: Pain radiates down the left upper extremity. - Exacerbating factors: Activities such as texting, looking down to use phone, cooking, washing dishes - Relieving factors: None reported. - Interference: Pain interferes with sleep and daily activities. - Affect: Pain impacts sleep and daily functioning. - Analgesia: Currently using gabapentin and baclofen with minimal relief. - Adverse Effects: None reported. - Activities of Daily Living: Pain affects ability to perform daily tasks and sleep. - Aberrant Drug Related Behaviors: None reported. Oswestry Neck Pain Disability Score=19 [facility] Medical History (Updated 07/27/25 @ 13:47 by JASMIN Slade) Vitamin D deficiency Recurrent major depression Fibromyositis Cobalamin deficiency Chronic constipation H. pylori infection Cholecystectomy planned Anemia Surgical History H/O breast biopsy History of cystoscopy (03/2012) History of esophagogastroduodenoscopy (EGD) (05/2014) Hx of appendectomy (07/2011) Tubal ligation status Hx of section Family History Mother HTN (hypertension) Father Diabetes HTN (hypertension) Kidney disease Heart disease Maternal Aunt Skin cancer Social History Household Members: Spouse Housing: House Alcohol intake: former Patient Tobacco Use Status: Former Tobacco user Tobacco use type: Cigarette Cigarettes Per Day: 10 Years Smoked: 8 Current occupational status: employed Current occupation: [employer] Sexual orientation: Straight/Heterosexual Gender identity: Female Female Reproductive History Menstrual Age of Menarche: 10 Review of Systems Const Details: - Neurological: Reports numbness, tingling and cramping in hands, intermittent balance issues, and falls. - Musculoskeletal: Reports neck pain radiating to left shoulder and arm. All systems reviewed & are unremarkable except as noted in HPI and below Physical Exam Vital Signs: Last Vital Signs Pulse 87 07/27/25 13:04 BP 107/67 07/27/25 13:04 Pulse Ox 99 07/27/25 13:04 Oxygen Delivery Method Room Air 07/27/25 13:04 BMI result Body Mass Index 29.4 General: Appears afebrile. Alert and oriented. Mood and affect appropriate. Follows and participates in conversation appropriately. Respiratory effort is unlabored. No cough. Able to transition from sit to stand unassisted. Ambulates with bilaterally normal heel strike and toe off. Neck Other: Patient with decreased cervical ROM in all planes/especially with left lateral rotation. Reports increased pain with cervical extension and flexion. Spurling compression test equivocal. Pain is unchanged by Spurling maneuver with retraction. Elvey's tension test positive on the left, with radiation of pain from neck to wrist. Lhermitte's test was negative. DTR intact, +1 left +2 right and symmetrical. Patient demonstrated 5/5 right 4/5 left motor strength of bilateral upper extremities. 2 + radial pulses. Significant tightness throughout left upper trapezius as well as TTP throughout bilateral upper trapezius muscles. No paravertebral tenderness over facet joints bilaterally. Multiple taut bands palpated throughout bilateral upper trapezius muscles. Neck: Yes normal visual inspection, Yes no lymphadenopathy, Yes supple, No anterior neck swelling, Yes no JVD, No prominent supraclavicular fat pad and Yes prominent dorsocervical fat pad Back/Spine/Pelvis Cervical Spine: No Lhermitte's sign positive, loss of normal cervical lordosis, cervical muscular tenderness, pain with cervical ROM, No Cervical spine scars present, cervical spasm, No Cervical spine tenderness and No step off deformity Thoracic/Lumbar Spine: thoracic and lumbar spine normal to inspection, No Thoracic/lumbar spine scar(s), Lasegue's sign negative, straight leg raise negative bilaterally, thoraco-lumbar ROM limited, No thoracic spinal tenderness and No lumbar spinal tenderness Results Reviewed Results Reviewed: CT CERVICAL SPINE WITHOUT CONTRAST 06/05/25 COMPARISON: None available. FINDINGS: Craniocervical junction is intact with normal alignment between the occipital condyles and the lateral masses of C1. Anterior and posterior marginal osteophyte formation at C5-6 and to a lesser extent C6-7. Mild endplate sclerosis and decreased intervertebral disc height at C5-6 and C6-7. Mild reverse curvature apex at C5-6. No gross malalignment. There is central spinal canal stenosis and left neuroforamina and stenosis at C5-6 on a degenerative basis. C1 is intact. C2 is intact. C3 is intact. C4 is intact. C5 is intact. C6 is intact. C7 is intact. No prevertebral compartment hematoma mass or fluid collection. The thyroid gland is not enlarged. Tympanic cavities and mastoid cells are aerated. IMPRESSION: Cervical spondylosis C5-6 and to a lesser extent C3-4 and C6-7 levels resulting in central spinal canal and left neuroforamina and stenosis and C5-6. NE electromyogram (EMG); NE nerve conduction velocity 04/17/25 FINDINGS: Bilateral median motor nerves showed prolonged distal latency, normal amplitude and normal conduction velocity. Bilateral median sensory nerves showed prolonged peak latency. All other nerves tested were within normal. Concentric needle EMG was performed in selected muscles of the bilateral upper extremities. Study did not reveal signs of electric abnormalities as shown in the table above. IMPRESSION: 1. This is an abnormal study. 2. There is electrodiagnostic evidence for bilateral moderate-severe median neuropathy at the wrist, consistent with carpal tunnel syndrome. 3. There is no electrodiagnostic evidence for ulnar neuropathy, brachial plexopathy, or cervical radiculopathy. Assessment & Plan Assessment & Plan (1) Chronic headaches: Code(s): R51.9 - Headache, unspecified; G89.29 - Other chronic pain Category: Medical (2) Cervical radiculopathy: Code(s): M54.12 - Radiculopathy, cervical region Category: Medical (3) Cervical spondylosis: Code(s): M47.812 - Spondylosis without myelopathy or radiculopathy, cervical region Category: Medical (4) Neuroforaminal stenosis of cervical spine: Code(s): M48.02 - Spinal stenosis, cervical region Category: Medical (5) Chronic low back pain: Code(s): M54.50 - Low back pain, unspecified; G89.29 - Other chronic pain Category: Medical Plan The plan includes awaiting the completion of the cervical spine MRI ordered by [facility] to evaluate the need for a potential therapeutic steroid injection for symptomatic relief vs surgical treatment. For the management of neck arthritis, diagnostic bilateral medial branch blocks may be considered, which could provide temporary pain relief. If significant relief is achieved, further procedures such as Sprint PNS trial vs cervical medial branch RFA may be considered for longer-term pain management. The patient is advised to continue physical therapy and avoid heavy lifting until further evaluation is completed. A work letter will be provided to accommodate these restrictions. Lumbar spine imaging to assess degree of degenerative changes, any subluxation, listhesis, compression fractures or pars defects. All questions and concerns have been answered and patient agreed with the treatment plan. Follow up for MRI results and sooner as needed. Patient was informed and verbally consented to the use of an ambient scribe for clinic note documentation during this visit. Orders: Orders XR lumbar spine 4V min 07/27/25 G89.29 - Other chronic pain, M54.50 - Low back pain, unspecified PT Evaluation and Treatment 07/27/25 G89.29 - Other chronic pain, M47.812 - Spondylosis without myelopathy or radiculopathy, cervical region, M48.02 - Spinal stenosis, cervical region, M54.12 - Radiculopathy, cervical region, M79.7 - Fibromyalgia, R51.9 - Headache, unspecified Coding Level of Care Code New Pt Level 4 (26464) Diagnoses Chronic headaches R51.9; G89.29 Cervical radiculopathy M54.12 Cervical spondylosis M47.812 Neuroforaminal stenosis of cervical spine M48.02 Chronic low back pain M54.50; G89.29
[2025-07-27 13:04] VITALS: BP 107/67; PULSE 87; O2SAT 99; BMI 29.4
--- OUTSIDE RECORDS SUMMARY | 2025-07-27 15:15 | XMS_ITS | Encounter Summary ---
Author
== END 2025-07-27 14:04 | disposition home or self-care (01) ==
PROVIDERS: PCP Family Medicine; Referring Provider Family Medicine; Visit Provider Nurse Practitioner Family
DX: R51.9 Headache, unspecified (principal); G89.29 Other chronic pain; M54.12 Radiculopathy, cervical region; M47.812 Spondylosis without myelopathy or radiculopathy, cervical region; M48.02 Spinal stenosis, cervical region; M54.50 Low back pain, unspecified
CPT/HCPCS: 99204

== ENCOUNTER 2025-07-27 12:51 | Outpatient (REF) | payer OTHER, SELFPAY | END 2025-07-27 12:52 | disposition home or self-care (01) | LOC: HO.XRAY 12:51 | PROVIDERS: PCP Family Medicine; Referring Provider Family Medicine; Visit Provider Nurse Practitioner Family | DX: M48.02 Spinal stenosis, cervical region (principal); M47.22 Other spondylosis with radiculopathy, cervical region; M79.7 Fibromyalgia; R51.9 Headache, unspecified; G89.29 Other chronic pain | CPT/HCPCS: 72110 ==

== ENCOUNTER → 2025-07-27 14:04 | Outpatient (BNV) | payer OTHER, SELFPAY | PROVIDERS: PCP Family Medicine; Referring Provider Family Medicine; Visit Provider Radiology Diagnostic Radiology | DX: M51.360 Other intervertebral disc degeneration, lumbar region with discogenic back pain only (principal) | CPT/HCPCS: 72110 ==

== ENCOUNTER → 2025-08-11 18:13 | Outpatient (BNV) | payer OTHER, SELFPAY | PROVIDERS: PCP Family Medicine; Visit Provider Radiology Diagnostic Radiology | DX: M99.61 Osseous and subluxation stenosis of intervertebral foramina of cervical region (principal) | CPT/HCPCS: 72141 ==

== ENCOUNTER 2025-08-11 18:14 | Outpatient (REF) | payer OTHER, SELFPAY ==
--- NOTE | ~2025-08-11 | MR_ITS ---
EXAMINATION: MR CERVICAL SPINE WITHOUT IV CONTRAST History: M54.12 - Radiculopathy, cervical region Technique: Sagittal T1, T2 and STIR, bilateral sagittal oblique T2, and axial T1, T2 and gradient echo images of the cervical spine were obtained per departmental protocol. Comparison: Correlation is made with a CT of the cervical spine dated 06/05/2025. Findings: The vertebral bodies maintain normal height and marrow signal intensity. There is straightening of the normal cervical lordosis. There is mild degenerative disc disease at the C5-6 and C6-7 levels with osteophyte formation. At C2-3, there is no evidence of disc herniation, central spinal stenosis, or neural foraminal narrowing. At C3-4, there is no evidence of disc herniation, central spinal stenosis, or neural foraminal narrowing. At C4-5, there is no evidence of disc herniation, central spinal stenosis, or neural foraminal narrowing. At C5-6, there is a posterior disc/osteophyte complex which is asymmetric to the left. This causes mild to moderate central spinal stenosis and left neural foraminal narrowing. At C6-7, there is no evidence of disc herniation, central spinal stenosis, or neural foraminal narrowing. At C7-T1, there is no evidence of disc herniation, central spinal stenosis, or neural foraminal narrowing. The spinal cord demonstrates normal signal intensity. The visualized paraspinal soft tissues are unremarkable. MR/MR cervical spine wo con Impression: Straightening of the normal cervical lordosis. Mild degenerative disc disease at C5-6 and C6-7. Posterior disc/osteophyte complex at the C5-6 level causing mild to moderate central spinal stenosis and left neural foraminal narrowing. Electronically signed by: Nba Barcenas MD 08/12/2025 07:26 AM EDT
--- OUTSIDE RECORDS SUMMARY | 2025-08-11 19:06 | XMS_ITS | Clinical Summary ---
Author Organization [employer] Address [address] [facility] 7t [place] [address] Care Team Providers Care Roll On Worker Name Role Phone Stefania Hunter Primary Care [...] Encounters Date Type Department Care Team Description 07/22/2025 Orders Only GENERIC EXTERNAL DATA DEPARTMENT Provider, Generic External Data 06/29/[address] [facility] MEDICINE [address] [place] [phone] Stefania Hunter DO Referral; Care Coordination 06/03/2025 Orders Only [facility] MEDICINE [address] [place] [address] Stefania Hunter DO Bilateral carpal tunnel syndrome (Primary Dx) from Last 3 Months Immunizations Immunization Administration [...] your housing situation today? I have issa sieegl 03/04/[address] you li [...] 03/04/2026 03/04/2025 Depression Screening 03/04/2026 03/04/2025, 03/04/20 25 SDOH Screening 03/04/2026 03/04/2025 Cervical Cancer Screening 07/22/2030 HPV/Cotest 07/22/2030 07/22/2025, 03/06, 03/30/2021, Additional history exists Pap Smear 07/22/2030 07/22/2025, 03/30/2021 DTaP/Tdap/Td Vaccines (3 - Td or [...] Procedure Name Priority Date/Time Associated Diagnosis Comments XR LUMBAR SPINE COMPLETE 4+ VIEWS Routine 07/27/2025 2:10 PM EDT PAP SMEAR Routine 07/22/2025 2:19 PM EDT HPV DNA, LOW/HIGH RISK Routine 2:[address] CERVICAL SPINE WO CONTRAST Routine 06/05/2025 2:46 PM EDT HEPATITIS C AB W/REFL TO HCV RNA, QN, PCR Routine 04/06/2025 10:15 AM EDT Paresthesia and pain of both upper extremities BMI 27.0-27.9,adult HIV 1/2 ANTIGEN/ANTIBODY, FOURTH GENERATION W/RFL Routine 04/06/2025 10:15 AM EDT Paresthesia and pain of both upper extremities BMI 27.0-27.9,adult BI MAMMOGRAM SCREENING TOMOSYNTHESIS BILATERAL Routine 12/27/2023 1:20 PM EST from Last 3 Months or Most Recently Relevant to Health Maintenance Results * XR Lumbar Spine Complete 4+ Views (07/27/2025 2:10 PM EDT) Anatomical Region Laterality Modality Spine, L-spine Radiographic Georgette ging 07/27/2025 2:10 PM EDT Narrative 07/27/2025 2:46 PM EDT [place] [address] XRay Report Signed Patient: Shawna Elizondo MR#: [id number] 64 : 1975 Acct:[id number] Age/Sex: 50 / F ADM Date: 07/27/25 Loc: DAKSHA Attending Dr: Moriah CASTELLANOS Ordering Physician: Moriah Schwartz Date of Service: 07/27/25 Procedure(s): XR lumbar spine 4V min Accession Number(s): [id number] cc: Moriah Schwartz; Stefania Hunter DO Reason for Exam: M54.50 - Low back pain, unspecified Examination: 5 view lumbar spine x-ray TECHNIQUE: AP, lateral, lateral spot, bilateral oblique view x-rays Prior: February 15, 2021 Findings: There are clips in the right mid to lower abdomen. There are also right upper quadrant clips from prior cholecystectomy. Punctate calcific densities in the pelvis are consistent with phleboliths. There are 5 nonrib-bearing lumbar segments. Since the prior, there is mild disc space at L5-S1 with vacuum phenomena. There is also facet sclerosis and osteophytes at L4-5 and L5-S1, stable to increased. Vertebral body height and alignment is preserved. XR/XR lumbar spine 4V min IMPRESSION: L5-S1 demonstrates moderate degenerative disc disease, increased since the prior. Electronically signed by: Titus Sandoval MD 07/27/2025 02:43 PM EDT RP Dictated By: Tiuts Sandoval MD Signed By: <Electronically signed by Titus Sandoval MD in OV> 07/27/25 1443 DD/ 1410 TD/TT: 07/27/25 1426 Business Account Leader: Procedure Note Donotuseinterpreter, Image - 07/27/[address] [address] XRay Report Signed Patient: Shawna ElizondoMR#: [id number] 64 : 1975Acct:[id number] Age/Sex: 50 / FADM Date: 07/27/25 Loc: DAKSHA Attending Dr: Moriah CASTELLAONS Ordering Physician: Moriah Schwartz Date of Service: 07/27/25 Procedure(s): XR lumbar spine 4V min Accession Number(s): [id number] cc: Moriah Schwartz; Stefania Hunter DO Reason for Exam: M54.50 - Low back pain, unspecified Examination: 5 view lumbar spine x-ray TECHNIQUE: AP, lateral, lateral spot, bilateral oblique view x-rays Prior: February 15, 2021 Findings: There are clips in the right mid to lower abdomen. There are also right upper quadrant clips from prior cholecystectomy. Punctate calcific densities in the pelvis are consistent with phleboliths. There are 5 nonrib-bearing lumbar segments. Since the prior, there is mild disc space at L5-S1 with vacuum phenomena. There is also facet sclerosis and osteophytes at L4-5 and L5-S1, stable to increased. Vertebral body height and alignment is preserved. XR/XR lumbar spine 4V min IMPRESSION: L5-S1 demonstrates moderate degenerative disc disease, increased since the prior. Electronically signed by: Titus Sandoval MD 07/27/2025 02:43 PM EDT RP Dictated By: Titus Sandoval MD Signed By: <Electronically signed by Titus Sandoval MD in OV> 07/27/25 1443 DD/ 1410 TD/TT: 07/27/25 1426 Business Account Leader: [facility] External Provider IMG XR PROCEDURES Final Result * HPV DNA, Low/High Risk (07/22/2025 2:19 PM EDT) HPV High Risk Negative Negative [facility] HPV Genotype 16 Negative Negative [facility] HPV Genotype 18 Negative Negative [facility] Comment:HPV testing performe d at [facility] (CLIA#[id number]), [address] [place] [address].Testing for HPV was performed using the [employer] VIOLET Altimet0system. The presence of HPV in the female genital tract isassociated with a number of diseases, including cervicalcarcinoma. The HPV DNA high risk pool tests for HPV 31, 33,35, 39, 45, 51, 52, 56, 58, 59, 66 and 68. The testing forHPV 16 and 18 genotypes has also been performed. A positiveresult indicates detection of nucleic acid sequences fromone or more subtypes, whereas a negative result indicatessuch sequences were not detected. 07/22/2025 2:19 PM EDT 07/23/2025 7:46 AM EDT Generic External Data Provider LAB BLOOD ORDERAB LES Final Result Performing Organization Address City/State/[facility] Co de Phone Number [facility] [address] [place] [phone] * Pap Smear (07/22/2025 2:19 PM EDT) 07/22/2025 2:19 PM EDT 07/23/2025 7:46 AM EDT Narrative [facility] - 07/27/2025 9:23 AM EDT ----- ------- Name: Shawna Elizondo Age/Sex: 50/F : 1975 Unit#: [id number] Attend Dr: Jassi Nieto MD Re07/22/25 Status: DEP REF Location: [facility] Disch: ----- ------- SPEC : [id number] RECD: 07/23/25 STATUS: CHAZ BOONE NUM: [id number] MARA: 07/22/25-[address] [facility] [address]: Jassi Nieto MD ENTERED: 07/23/25 SP TYPE: Pap Smr OTHR DR: Stefania Hunter DO ORDERED: Pap Smear Interpretation Satisfactory for evaluation. Negative for intraepithelial lesion or malignancy. No endocervical cells seen. HPV High Risk: Negative HPV Genotyping 16: Negative HPV Genotyping 18: Negative Clinical Information LMP: Unknown date Previous PAP test: 03/31/2021, Unknown findings Other history: Encounter for well woman exam Material Received ThinPrep-Cervical PAP Disclaimer As of August 27, 2024, the technical services to include automated prescreening performed by the ThinPrep Imaging System, PAP screening and HPV testing will be performed at [facility] (CLIA #[id number]), [address] [place] [address]. Testing for HPV was performed using the [employer] 6800 system. The presence of HPV in the female genital tract is associated with a number of diseases, including cervical carcinoma. The HPV DNA high risk pool tests for HPV 31, 33, 35, 39, 45, 51, 52, 56, 58, 59, 66 and 68. The testing for HPV 16 and 18 genotypes has also been performed. A positive result indicates detection of nucleic acid sequences from one or more subtypes, whereas a negative result indicates such sequences were not detected. All professional services are performed by [facility] ([address] [place] [id number]; ; CLIA #[id number]). The PAP Test is a screening procedure with the inherent possibility of both false negative and false positive results. Results should be interpreted in the context of historic and current clinical findings. Reliability of the PAP Test is enhanced by performing the test on a regular repetitive basis. CONTINUED ON NEXT PAGE ----- ------- Name: Shawna Elizondo Age/Sex: 50/F : 1975 Unit#: [id number] Attend Dr: Jassi Nieto MD Re07/22/25 Status: DEP REF Location: [facility] Disch: ----- ------- SPEC : [id number] RECD: 07/23/25 STATUS: CHAZ BOONE NUM: [id number] MARA: 07/22/25-14[address] [facility] [address]: Jassi Nieto MD ENTERED: 07/23/25 SP TYPE: Pap Smr OTHR DR: Stefania Hunter DO ORDERED: Pap Smear Copies To: Stefania Hunter DO [address] [address] Jassi Nieto MD [facility] [address] [place] [facility] ----- ------- Signed (signature on file) CAROLYNE Robles ([facility]) 07/27/[address] ----- ------- END OF REPORT us Generic External Data Provider LAB CYTOLOGY GARRET GARY Final Result [facility] [address] [place], [place] [phone] * CT Cervical Spine w/o Contrast (06/05/2025 2:46 PM EDT) Anatomical Region Laterality Modality Spine, C-spine Computed Tomogra phy 06/05/2025 2:46 PM EDT Narrative 06/05/2025 3:37 PM EDT [place] [address] CT Scan Report Signed Patient: Shawna Elizondo MR#: [id number] 62 : 1975 Acct:[id number] Age/Sex: 50 / F ADM Date: 06/05/25 Loc: HO.ED Attending Dr: Ordering Physician: Aiyana Lange CNP Date of Service: 06/05/25 Procedure(s): CT cervical spine wo IV con Accession Number(s): [id number] cc: Aiyana Lange CNP; MattteresaStefania figueroa Report Number: [id number]: Total DLP = 381.00 mGy-cm EXAMINATION: CT [...] 06/05/25 1534 DD/ 1446 TD/TT: 06/05/25 1501 Business Account Leader: Procedure Note Donotuseinterpreter, Image - 06/05/[address] [address] [address] Scan Report Signed Patient: Edgar Elizondo#: [id number] 62 : 1975Acct:[id number] Age/Sex: 50 / FADM Date: 06/05/25 Loc: HO.ED Attending Dr: Ordering Physician: Aiyana Lange CNP Date of Service: 06/05/25 Procedure(s): CT cervical spine wo IV con Accession Number(s): [id number] cc: Aiyana Lange CNP; Stefania Hunter DO Report Number: [id number]: Total DLP = 381.00 mGy-cm EXAMINATION: CT [...] 06/05/25 1534 DD/ 1446 TD/TT: 06/05/25 1501 Business Account Leader: [facility] External Provider IMG CT PROCEDURES Final Result * Hepatitis C Antibody with Reflex to HCV, RNA, Quantitative, Real-Time PCR (04/06/2025 10:15 AM EDT) Hepatitis C Antibody Nonreactive Nonreactive [facility] Comment:Antibodies to HCV no t detected; does not exclude early acuteHCV infection. Blood Venous blood specimen / Unknown 04/06/2025 10:15 AM EDT 04/06/2025 11:23 AM EDT Stefania Hunter DO LAB BLOOD ORDERABLES Final R esult [facility] [address] [place], [place] [phone] * HIV-1/2 Antigen and Antibodies, Fourth Generation, with Reflexes (04/06/2025 10:15 AM EDT) HIV AB/AG Nonreactive Nonreactive [facility] Comment:HIV-1 p24 Ag and/or HIV-1/HIV-2 Ab not detected.A test result that is nonreactive does not exclude thepossibility of exposure to or infection with HIV-1 and/orHIV-2. Nonreactive results in this assay for individualswith prior exposure to HIV-1 and/or HIV-2 may be due toantigen and antibody levels that are below the limit ofdetection of this assay.The [employer] HIV Ag/Ab Combo assay result andsupplemental assay results should be interpreted inconjunction with the patient's clinical presentation,history and other laboratory results. If the results areinconsistent with clinical evidence, additional testing issuggested to confirm the result. Blood Venous blood specimen / Unknown 04/06/2025 10:15 AM EDT 04/06/2025 11:23 AM EDT us Stefania Hunter DO LAB BLOOD ORDERABLES Final R esult [facility] [address] [place] [phone] * BI Mammogram Screening Tomosynthesis Bilateral (12/27/2023 1:20 PM EST) Anatomical Region Laterality Modality Breast Bilateral Mammography 12/27/2023 1:20 PM EST Narrative 01/20/2024 7:59 AM EDT [address] [place] [address] Mammography Report Signed Patient: Shawna Elizondo MR#: [id number] 62 : 1975 Acct:[id number] Age/Sex: 48 / F ADM Date: 12/27/23 Loc: HO.MAMMO Attending Dr: Stefania Hunter DO Ordering Physician: Stefania Hunter DO Results: 2B enign Findings Date of Service: 12/27/23 Follow Up: 1 Year From [facility] Mammogram Procedure(s): MM tomosynthesis screening BI Accession Number(s): [id number] cc: Stefania Hunter DO EXAMINATION: MM SCREENING [...] in OV> 01/20/24 0756 DD/ 1320 TD/TT: Business Account Leader: Procedure Note Donotuseinterpreter, Image - [facility] [address] [place] [address] Mammography Report Signed Patient: Shawna Elizondo#: [id number] 62 : 1975Acct:[id number] Age/Sex: 48 / FADM Date: 12/27/23 Loc: HO.MAMMO Attending Dr: Stefania Hunter DO Ordering Physician: Stefania Hunterults: 2B enign Findings Date of Service: 12/27/23Follow Up: 1 Year From [facility] Mammogram Procedure(s): MM tomosynthesis screening BI Accession Number(s): [id number] cc: Stefania Hunter DO EXAMINATION: MM SCREENING [...] in OV> 01/20/24 0756 DD/ 1320 TD/TT: Business Account Leader: Stefania Hunter DO IMG BI PROCEDURES Final Resu lt from Last 3 Months or Most Recently Relevant to Health Maintenance Insurance [employer] Care Teams Roll On Worker Relationship Specialty Start Date End Date Stefania Hunter DO [address] [place] [address] PCP - General Family Medicine 11/05/18
--- OUTSIDE RECORDS SUMMARY | 2025-08-11 19:06 | XMS_ITS | Encounter Summary ---
Author Organization [employer] Address [address] [place] [address] 7t [place] [address] Care Team Providers Care Financial Aid Officer Name Role Phone Stefania Hunter DO Primary Care Provider + [phone] Reason for Visit * Reason Onset Date Comments Appointment Request 05/20/2024 Encounter Details Date Type Department Care Team ([facility] st Contact Info) Description 05/20/2024 Telephone [facility] MEDICINE [address] [place], [place] [phone] Stefania Hunter DO [address] [place] [address] Appointment Request Social History Tobacco Use Types [...] on filedocumented in this encounter Care Teams Financial Aid Officer Relationship Specialty Start Date End Date Stefania Hunter DO [address] [place] [address] PCP - General Family Medicine 11/05/18 documented as of this encounter
--- OUTSIDE RECORDS SUMMARY | 2025-08-11 19:06 | XMS_ITS | Encounter Summary ---
Author Organization [employer] Address [address] [facility] 7t [place] [address] Care Team Providers Care Mgmt Consultant Name Role Phone Stefania Hunter DO Primary Care Provider [phone] Reason for Visit * Reason Onset Date Comments Nurse Triage 01/13/2025 Encounter Details Date Type Department Care Team ([facility] st Contact Info) Description 01/13/2025 Telephone [facility] MEDICINE [address] [place], [place] [phone] Stefania Hunter DO [address] [place] [address] Nurse Triage Social History Tobacco Use Types [...] acuity questions The caller accepted this outcome. [phone] faroese documented in this encounter Plan of Treatment Not on file documented as of this encounter Visit Diagnoses Not on filedocumented in this encounter Care Teams Mgmt Consultant Relationship Specialty Start Date End Date Stefania Hunter DO [address] [place] [address] PCP - General Family Medicine 11/05/18 documented as of this encounter
--- OUTSIDE RECORDS SUMMARY | 2025-08-11 19:06 | XMS_ITS | Encounter Summary ---
Author Organization [employer] Address [address] [facility] [address] [place] [address] Care Team Providers Care Teletypist Name Role Phone Stefania Hunter DO Primary Care Provider + [phone] Reason for Visit * Reason Onset Date Comments Appointment Request 11/08/2023 Encounter Details Date Type Department Care Team ([facility] st Contact Info) Description 11/08/2023 Telephone [facility] MEDICINE [address] [place] [address] Stefania Hunter DO [address] [place] [address] Appointment Request Social History Tobacco Use Types [...] cancer as well. Please contact pt at [phone] documented in this encounter Plan of Treatment Not on file documented as of this encounter Visit Diagnoses Not on filedocumented in this encounter Care Teams Teletypist Relationship Specialty Start Date End Date Stefania Hunter DO [address] [place] [address] PCP - General Family Medicine 11/05/18 documented as of this encounter
--- OUTSIDE RECORDS SUMMARY | 2025-08-11 19:06 | XMS_ITS | Encounter Summary ---
Author Organization [employer] Address [address] [facility] 7t [place] [address] Care Team Providers Care Environmental Solutions Engineer Name Role Phone Stefania Hunter DO Primary Care Provider [phone] Encounter Details Date Type Department Care Team (Late st Contact Info) Description 08/03/2023 Abstract [facility] MEDICINE [address] [place] [address] Stefania Hunter DO [address] [place] [address] Social History Tobacco Use Types Packs/Day Years [...] on filedocumented in this encounter Care Teams Environmental Solutions Engineer Relationship Specialty Start Date End Date Stefania Hunter DO [address] [place] [address] PCP - General Family Medicine 11/05/18 documented as of this encounter
== END 2025-08-11 18:15 | disposition home or self-care (01) ==
LOC: HO.MRI 18:14
PROVIDERS: PCP Family Medicine; Visit Provider Physician Assistant
DX: M54.12 Radiculopathy, cervical region (principal)
CPT/HCPCS: 72141

== ENCOUNTER 2025-08-13 11:23 | Outpatient (AMB) | payer OTHER, SELFPAY ==
--- NOTE | 2025-08-13 11:29 | A.OFFVIS_ITS ---
Vital Signs 08/13/25 11:33 Height 5 ft 2 in Weight 164 lb 4 oz BMI 30.0 BP 132/70 Blood Pressure Location Lt brachial Position Sitting Pulse 82 Pulse Source Pulse Oximeter Pulse Oximetry (%) 99 Oxygen Delivery Method Room Air Intake Visit Reasons: MRI FOLLOW UP Intake Note: Pain today 08/14 Resident Care Assistant Required: Yes Resident Care Assistant Language: Human Resources Designate Services: Resident Care Assistant Present Resident Care Assistant Name: Thomas #[id number] Information Interpreted: non-clinical & clinical Accompanied by: Self / Same As Patient Allergies morphine (MORPHINE) Allergy (Intermediate, Verified 08/13/25 11:35) STOMACH UPSET, severe abd pain clarithromycin (From Biaxin) Allergy (Unknown, Verified 08/13/25 11:35) Headache metronidazole (Flagyl) Allergy (Unknown, Verified 08/13/25 11:35) Fainting spell, dizziness, headache Penicillins (PENICILLINS) Allergy (Unknown, Verified 08/13/25 11:35) HIVES HPI Comments Details: The patient is a 50-year-old female presenting for follow up and discuss recent cervical spine MRI and lumbar xray results. The MRI showed straightening of normal cervical lordosis and mild degenerative disc disease at C5-C6 and C6-C7, with a posterior disc osteophyte complex at C5- C6 causing mild to moderate central spinal stenosis and left neural foraminal narrowing. The patient reports minimal neck pain currently, with more significant disc omfort in the lower back area, especially when moving to the sides or bending over. She experiences pain radiating down to her legs, exacerbated by prolonged standing or sitting, and has not engaged in physical therapy for her back. The patient's lumbar spine x-ray revealed arthritis and disc degeneration, most severe at the L5-S1 level. 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 Denies any recent cough, cold, infection, fever or any significant changes in medical history since last office visit. PRIOR: The patient is a 50-year-old [place]de[place] speaking female presenting with cervical radiculopathy. The patient reports a history of neck pain that radiates into her left upper extremity, which has been ongoing for multiple years and has been worsening over the past year. She denies any inciting events, trauma, or falls related to this pain. The pain is described as pressure, throbbing and radiating, with associated hand numbness and cramping pain in her hands, particularly at night. 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 She has attempted ljaz-bml-zkiuemc medications and is currently on gabapentin, with minimal relief. She has also tried physical therapy, which she continues at home, but reports no significant improvement in daily functioning. Her medical history includes bilateral carpal tunnel syndrome, depression, neuropathy, and asthma. She has previously taken prednisone with minimal relief and is currently on baclofen and gabapentin. A cervical CT scan shows multilevel degenerative changes with straightening of the normal cervical lordosis and anterior osteophyte bridging at C5-C6 and C6- C7. Cervical spondylosis C5-6 and to a lesser extent C3-4 and C6-7 levels resulting in central spinal canal and left neuroforamina and stenosis and C5-6. She is awaiting to be scheduled for cervical spine MRI. Denies prior spine injury or injections. - Onset: Pain has been present for multiple years, worsening over time. - Quality: Described as pressure, throbbing, aching and radiating; numbness and tingling left shoulder and both hands - Location: Originates in the neck, radiates to the left shoulder and arms, near the wrists. - Radiation: Pain radiates down the left upper extremity. - Exacerbating factors: Activities such as texting, looking down to use phone, cooking, washing dishes - Relieving factors: None reported. - Interference: Pain interferes with sleep and daily activities. - Affect: Pain impacts sleep and daily functioning. - Analgesia: Currently using gabapentin and baclofen with minimal relief. - Adverse Effects: None reported. - Activities of Daily Living: Pain affects ability to perform daily tasks and sleep. - Aberrant Drug Related Behaviors: None reported. Oswestry Neck Pain Disability Score=19 [facility] Medical History Vitamin D deficiency Recurrent major depression Fibromyositis Cobalamin deficiency Chronic constipation H. pylori infection Cholecystectomy planned Anemia Surgical History H/O breast biopsy History of cystoscopy (03/2012) History of esophagogastroduodenoscopy (EGD) (05/2014) Hx of appendectomy (07/2011) Tubal ligation status Hx of section Family History Mother HTN (hypertension) Father Diabetes HTN (hypertension) Kidney disease Heart disease Maternal Aunt Skin cancer Social History Household Members: Spouse Housing: House Alcohol intake: former Patient Tobacco Use Status: Former Tobacco user Tobacco use type: Cigarette Cigarettes Per Day: 10 Years Smoked: 8 Current occupational status: employed Current occupation: [employer] Sexual orientation: Straight/Heterosexual Gender identity: Female Female Reproductive History Menstrual Age of Menarche: 10 Review of Systems Const Details: - Musculoskeletal: Reports minimal neck pain, severe lower back pain radiating to legs. - Neurological: Denies significant neck pain currently, reports back pain radiating to legs. All systems reviewed & are unremarkable except as noted in HPI and below Physical Exam Vital Signs: Last Vital Signs Pulse 82 08/13/25 11:33 BP 132/70 08/13/25 11:33 Pulse Ox 99 08/13/25 11:33 Oxygen Delivery Method Room Air 08/13/25 11:33 BMI result Body Mass Index 30.0 General: Appears afebrile. Alert and oriented. Mood and affect appropriate. Follows and participates in conversation appropriately. Respiratory effort is unlabored. No cough. Able to transition from sit to stand unassisted. Ambulates with bilaterally normal heel strike and toe off. Neck Neck: Yes normal visual inspection, Yes no lymphadenopathy, Yes supple, No anterior neck swelling, Yes no JVD, No prominent supraclavicular fat pad and Yes prominent dorsocervical fat pad General: Yes no CVA tenderness Back/Spine/Pelvis Back: no CVA tenderness Cervical Spine: No Lhermitte's sign positive, loss of normal cervical lordosis, cervical muscular tenderness, pain with cervical ROM, No Cervical spine scars present, cervical spasm, No Cervical spine tenderness and No step off deformity Thoracic/Lumbar Spine: thoracic and lumbar spine normal to inspection, No Thoracic/lumbar spine scar(s), Lasegue's sign negative, straight leg raise negative bilaterally, thoraco-lumbar ROM limited, No thoracic spinal tenderness and No lumbar spinal tenderness Sacroiliac joints: bilaterally tender to palpation Results Reviewed Results Reviewed: CT CERVICAL SPINE WITHOUT CONTRAST 06/05/25 COMPARISON: None available. FINDINGS: Craniocervical junction is intact with normal alignment between the occipital condyles and the lateral masses of C1. Anterior and posterior marginal osteophyte formation at C5-6 and to a lesser extent C6-7. Mild endplate sclerosis and decreased intervertebral disc height at C5-6 and C6-7. Mild reverse curvature apex at C5-6. No gross malalignment. There is central spinal canal stenosis and left neuroforamina and stenosis at C5-6 on a degenerative basis. C1 is intact. C2 is intact. C3 is intact. C4 is intact. C5 is intact. C6 is intact. C7 is intact. No prevertebral compartment hematoma mass or fluid collection. The thyroid gland is not enlarged. Tympanic cavities and mastoid cells are aerated. IMPRESSION: Cervical spondylosis C5-6 and to a lesser extent C3-4 and C6-7 levels resulting in central spinal canal and left neuroforamina and stenosis and C5-6. NE electromyogram (EMG); NE nerve conduction velocity 04/17/25 FINDINGS: Bilateral median motor nerves showed prolonged distal latency, normal amplitude and normal conduction velocity. Bilateral median sensory nerves showed prolonged peak latency. All other nerves tested were within normal. Concentric needle EMG was performed in selected muscles of the bilateral upper extremities. Study did not reveal signs of electric abnormalities as shown in the table above. IMPRESSION: 1. This is an abnormal study. 2. There is electrodiagnostic evidence for bilateral moderate-severe median neuropathy at the wrist, consistent with carpal tunnel syndrome. 3. There is no electrodiagnostic evidence for ulnar neuropathy, brachial plexopathy, or cervical radiculopathy. MR CERVICAL SPINE WITHOUT IV CONTRAST 08/11/25 History: M54.12 - Radiculopathy, cervical region Technique: Sagittal T1, T2 and STIR, bilateral sagittal oblique T2, and axial T1, T2 and gradient echo images of the cervical spine were obtained per departmental protocol. Comparison: Correlation is made with a CT of the cervical spine dated 06/05/2025. Findings: The vertebral bodies maintain normal height and marrow signal intensity. There is straightening of the normal cervical lordosis. There is mild degenerative disc disease at the C5-6 and C6-7 levels with osteophyte formation. At C2-3, there is no evidence of disc herniation, central spinal stenosis, or neural foraminal narrowing. At C3-4, there is no evidence of disc herniation, central spinal stenosis, or neural foraminal narrowing. At C4-5, there is no evidence of disc herniation, central spinal stenosis, or neural foraminal narrowing. At C5-6, there is a posterior disc/osteophyte complex which is asymmetric to the left. This causes mild to moderate central spinal stenosis and left neural foraminal narrowing. At C6-7, there is no evidence of disc herniation, central spinal stenosis, or neural foraminal narrowing. At C7-T1, there is no evidence of disc herniation, central spinal stenosis, or neural foraminal narrowing. The spinal cord demonstrates normal signal intensity. The visualized paraspinal soft tissues are unremarkable. Impression: Straightening of the normal cervical lordosis. Mild degenerative disc disease at C5-6 and C6-7. Posterior disc/osteophyte complex at the C5-6 level causing mild to moderate central spinal stenosis and left neural foraminal narrowing. XR lumbar spine 4V min 07/27/25 Prior: February 15, 2021 Findings: There are clips in the right mid to lower abdomen. There are also right upper quadrant clips from prior cholecystectomy. Punctate calcific densities in the pelvis are consistent with phleboliths. There are 5 nonrib-bearing lumbar segments. Since the prior, there is mild disc space at L5-S1 with vacuum phenomena. There is also facet sclerosis and osteophytes at L4-5 and L5-S1, stable to increased. Vertebral body height and alignment is preserved. IMPRESSION: L5-S1 demonstrates moderate degenerative disc disease, increased since the prior. Assessment & Plan Assessment & Plan (1) Chronic low back pain: Code(s): M54.50 - Low back pain, unspecified; G89.29 - Other chronic pain Category: Medical (2) Lumbosacral spondylosis: Code(s): M47.817 - Spondylosis without myelopathy or radiculopathy, lumbosacral region Category: Medical (3) Lumbar degenerative disc disease: Code(s): M51.369 - Other intervertebral disc degeneration, lumbar region without mention of lumbar back pain or lower extremity pain Category: Medical (4) Cervical spondylosis: Code(s): M47.812 - Spondylosis without myelopathy or radiculopathy, cervical region Category: Medical (5) Chronic low back pain: Code(s): M54.50 - Low back pain, unspecified; G89.29 - Other chronic pain Category: Medical (6) Lumbosacral spondylosis: Code(s): M47.817 - Spondylosis without myelopathy or radiculopathy, lumbosacral region Category: Medical (7) Lumbar degenerative disc disease: Code(s): M51.369 - Other intervertebral disc degeneration, lumbar region without mention of lumbar back pain or lower extremity pain Category: Medical (8) Lumbar radiculopathy: Code(s): M54.16 - Radiculopathy, lumbar region Category: Medical Plan The patient will be referred to [facility] in [place] for management of her lower back pain. If physical therapy does not alleviate the symptoms, the next step will be to consider interventional treatments for axial and radicular pain management. The patient is advised to follow up after completing physical therapy to assess the effectiveness of the treatment and discuss further management options. If symptoms persist, an MRI of the lower back may be considered to further evaluate the condition. Medrol Canelo script provided for symptomatic relief. Side effects and precautions were discussed with patient. All questions and concerns have been answered and patient agreed with the treatment plan. Follow up after PT and sooner as needed. Patient was informed and verbally consented to the use of an ambient scribe for clinic note documentation during this visit. Orders: Orders PT Evaluation and Treatment 08/13/25 G89.29 - Other chronic pain, M47.812 - Spondylosis without myelopathy or radiculopathy, cervical region, M47.817 - Spondylosis without myelopathy or radiculopathy, lumbosacral region, M51.369 - Other intervertebral disc degeneration, lumbar region without mention of lumbar back pain or lower extremity pain, M54.50 - Low back pain, unspecified Medications: New methylprednisolone (Medrol (Canelo)) PO PER PKG DIR 21 ea 0RF pain G89.29 - Other chronic pain, M47.817 - Spondylosis without myelopathy or radiculopathy, lumbosacral region, M51.369 - Other intervertebral disc degeneration, lumbar region without mention of lumbar back pain or lower extremity pain, M54.16 - Radiculopathy, lumbar region, M54.50 - Low back pain, unspecified Coding Level of Care Code Est Pt Level 4 (64713) Complex EM visit Add On G2211 Diagnoses Chronic low back pain M54.50; G89.29 Lumbosacral spondylosis M47.817 Lumbar degenerative disc disease M51.369 Cervical spondylosis M47.812 Lumbar radiculopathy M54.16
[2025-08-13 11:33] VITALS: BP 132/70; PULSE 82; O2SAT 99
== END 2025-08-13 12:04 | disposition home or self-care (01) ==
LOC: HO.PMC 11:23
PROVIDERS: PCP Family Medicine; Visit Provider Nurse Practitioner Family
DX: M54.50 Low back pain, unspecified (principal); G89.29 Other chronic pain; M47.817 Spondylosis without myelopathy or radiculopathy, lumbosacral region; M51.369 Other intervertebral disc degeneration, lumbar region without mention of lumbar back pain or lower extremity pain; M47.812 Spondylosis without myelopathy or radiculopathy, cervical region; M54.16 Radiculopathy, lumbar region
CPT/HCPCS: 99214

== ENCOUNTER 2025-08-19 14:03 | Outpatient (REF) | payer OTHER, SELFPAY ==
--- NOTE | ~2025-08-19 | XR_ITS ---
EXAMINATION: XR SACRUM AND COCCYX CLINICAL INFORMATION: severe mid sacral pain COMPARISON: None available. TECHNIQUE: 2 views of the sacrum and 2 views of the coccyx were obtained. FINDINGS: No visible acute fracture or malalignment. Joint spaces are maintained. Mild symphysis pubis degeneration. SI joints are symmetric. No suspicious bony lesions. No abnormal soft tissue calcification. Metallic keira projected anterior to the L5 vertebral body. XR/XR sacrum coccyx min 2V IMPRESSION: No radiographic evidence of acute osseous findings. Clinically correlate. Further CT or MRI evaluation as clinically indicated. Electronically signed by: Art Darling MD 08/19/2025 03:35 PM EDT
--- OUTSIDE RECORDS SUMMARY | 2025-08-19 11:30 | XMS_ITS | Encounter Summary ---
Author Organization [employer] Address [address] [place] [address] [address] [place] [address] Care Team Providers Care Change House Attendant Name Role Phone Stefania Hunter DO Primary Care Provider [phone] Reason for Referral * Imaging (Routine) - Authorized Specialty Diagnoses / Procedures Referred By Bryan jerry Referred To Contact Radiology Diagnoses Chronic bilateral low back pain with bilateral sciatica Procedures MR Lumbar Spine w/o Contrast Stefania Hunter DO [address] [place] [address] Phone: tel: fax: [address] Phone: tel: fax: Referral ID Status Reason Start Date Expiration Date V isits Requested Visits Authorized [id number] Authorized 08/19/2025 08/19/2026 1 1 * Neurology (Routine) - Authorized Specialty Diagnoses / Procedures Referred By Bryan jerry Referred To Contact Diagnoses Chronic bilateral low back pain with bilateral sciatica Procedures Nerve conduction test Stefania Hunter DO [address] [place] [address] Phone: tel: fax: [address] Phone: tel: fax: Referral ID Status Reason Start Date Expiration Date V isits Requested Visits Authorized [id number] Authorized 08/19/2025 08/19/2026 1 1 * Neurology (Routine) - Authorized Specialty Diagnoses / Procedures Referred By Bryan jerry Referred To Contact Diagnoses Chronic bilateral low back pain with bilateral sciatica Procedures EMG Stefania Hunter DO [address] [place] [address] Phone: tel: fax: [address] Phone: tel: fax: Referral ID Status Reason Start Date Expiration Date V isits Requested Visits Authorized [id number] Authorized 08/19/2025 08/19/2026 1 1 Encounter Details Date Type Department Care Team (Late st Contact Info) Description 08/19/2025 11:30 AM EDT Office Visit [facility] [address] [place] [address] Stefania Hunter DO [address] [place] [address] Chronic bilateral low back pain with bilateral [...] PM EDT Narrative 08/19/2025 3:38 PM EDT [address] [address] XRay Report Signed Patient: Alia Elizondo MR#: [id number] 62 : 1975 Acct:[id number] Age/Sex: 50 / F ADM Date: 08/19/25 [facility]: Stefania Hunter DO Ordering Physician: Stefania Hunter DO Date of Service: 08/19/25 Procedure(s): XR sacrum coccyx min 2V Accession Number(s): [id number] cc: Stefania Hunter DO Reason for Exam: [...] 08/19/25 1535 DD/ 1518 TD/TT: 08/19/25 1520 Electronic Resources Librarian: ELLY Procedure Note Donotuseinterpreter, Image - 08/19/2025 [facility] [address] [place] [address] XRay Report Signed Patient: Alia ElizondoMR#: [id number] 62 : 1975Acct:[id number] Age/Sex: 50 / FADM Date: 08/19/25 Loc: [facility] Attending Dr: Stefania Hunter DO Ordering Physician: Stefania Hunter DO Date of Service: 08/19/25 Procedure(s): XR sacrum coccyx min 2V Accession Number(s): [id number] cc: Stefania Hunter DO Reason for Exam: [...] 08/19/25 1535 DD/ 1518 TD/TT: 08/19/25 1520 Electronic Resources Librarian: ELLY Stefania Hunter DO IMG XR PROCEDURES Final Resu lt documented in this encounter Visit Diagnoses Diagnosis Chronic bilateral low back pain with bilateral sciatica- Primary documented in this encounter Additional Health Concerns Assessment Noted Time PHQ-9 Depression Total Score: 1 03/04/20 25 8:19 AM EDT documented as of this encounter Care Teams Change House Attendant Relationship Specialty Start Date End Date Stefania Hunter DO [address] [place] [id number] PCP - General Family Medicine 11/05/18 documented as of this encounter
--- OUTSIDE RECORDS SUMMARY | 2025-08-19 17:51 | XMS_ITS | Encounter Summary ---
Author Organization [employer] Address [address] [facility] [address] [place] [address] Care Team Providers Care Food And Nutrition Teacher Name Role Phone Stefania Hunter DO Primary Care Provider [phone] Reason for Visit * Reason Onset Date Comments Chart Prep 08/19/2025 Encounter Details Date Type Department Care Team ([facility] st Contact Info) Description 08/19/2025 Telephone [facility] [address] [place], [place] [phone] Stefania Hunter DO [address] [place] [address] Chart Prep Social History Tobacco Use Types Packs/Day Years [...] encounter Miscellaneous Notes * Telephone Encounter - Kaur Cardozo [place] - 08/19/2025 8:28 AM EDT Chart Prep Labs: done Images: done Referrals: appointment pending Vaccines due: Covid, Flu, PCV20, Hep B, and Zoster Screenings: colonoscopy Overdue care gaps: PHQ-9, KAYODE-7, and Disability screen documented in this encounter Plan of Treatment Not on file documented as of this encounter Visit Diagnoses Not on filedocumented in this encounter Additional Health Concerns Assessment Noted Time PHQ-9 Depression Total Score: 1 03/04/20 25 8:19 AM EDT documented as of this encounter Care Teams Food And Nutrition Teacher Relationship Specialty Start Date End Date Stefania Hunter DO [address] [place] [address] PCP - General Family Medicine 11/05/18 documented as of this encounter
--- OUTSIDE RECORDS SUMMARY | 2025-08-19 17:51 | XMS_ITS | Encounter Summary ---
Author Organization [employer] Address [address] [facility] [address] [place] [address] Care Team Providers Care Bmet Name Role Phone Stefania Hunter DO Primary Care Provider [phone] Reason for Visit * Reason Onset Date Comments Nurse Triage 01/13/2025 Encounter Details Date Type Department Care Team ([facility] st Contact Info) Description 01/13/2025 Telephone [facility] [address] [place], [place] [phone] Stefania Hunter DO [address] [place] [address] Nurse Triage Social History Tobacco Use Types [...] acuity questions The caller accepted this outcome. [phone] nepali documented in this encounter Plan of Treatment Not on file documented as of this encounter Visit Diagnoses Not on filedocumented in this encounter Care Teams Bmet Relationship Specialty Start Date End Date Stefania Hunter DO [address] [place] [address] PCP - General Family Medicine 11/05/18 documented as of this encounter
--- OUTSIDE RECORDS SUMMARY | 2025-08-19 17:51 | XMS_ITS | Encounter Summary ---
Author Organization [employer] Address [address] [facility] [address] [place] [address] Care Team Providers Care Quality Control Inspector Heading Name Role Phone Stefania Hunter DO Primary Care Provider [phone] Encounter Details Date Type Department Care Team (Late st Contact Info) Description 08/03/2023 Abstract [facility] [address] [place] [address] Stefania Hunter DO [address] [place] [address] Social History Tobacco Use Types Packs/Day Years [...] on filedocumented in this encounter Care Teams Quality Control Inspector Heading Relationship Specialty Start Date End Date Stefania Hunter DO [address] [place] [id number] PCP - General Family Medicine 11/05/18 documented as of this encounter
--- OUTSIDE RECORDS SUMMARY | 2025-08-19 17:51 | XMS_ITS | Clinical Summary ---
Author Organization [employer] Address [address] [facility] 7t [place] [address] Care Team Providers Care Frog Or Oyster Farmworker Name Role Phone MattStefania whatley Primary Care Provider [phone] Allergies Active Allergy Reactions Criticality Noted Date Comments Clarithromycin Headache 08/23/2022 Metronidazole 06/05/2025 Other Reaction(s): Fainting spell, dizziness, headache Morphine High 08/28/2013 Other Reaction(s): STOMACH UPSET, severe abd pain Penicillin V Rash Low 11/08/2010 Penicillins Hives 06/05/2025 Medications hydrocortisone 1 % creamIndication s:Right foot pain Apply topically if needed (itching). 1g As often as needed up to 6 times/d 45 g 05/19/20 24 Active Diclofenac Sodium 1 % gelIndications: Paresthesia and pain of both upper extremities Apply 2 g topically if needed in the morning, at noon, in the evening, and at bedtime (pain). 150 g 3 03/03/20 25 Active gabapentin (Neurontin) 100 MG capsule Take 1 capsule by mouth 2 times daily. 06/07/20 25 Active methylPREDNISol one (Medrol Dospak) 4 MG tablets as directed Active naproxen (Naprosyn) 500 MG tablet Take 1 tablet (500 mg) by mouth if needed in the morning and at bedtime for mild pain. 40 tablet 1 08/19/20 25 026 Active acetaminophen (Tylenol 8 Hour) 650 MG ER tablet Take 1 tablet (650 mg) by mouth every 8 (eight) hours if needed for mild pain. Do not crush, chew, or split. 40 tablet 1 08/19/20 25 025 Active tiZANidine (Zanaflex) 2 MG tablet Take 1 tablet (2 mg) by mouth every 8 (eight) hours if needed for muscle spasms. 30 tablet 1 08/19/20 25 026 Active naproxen (Naprosyn) 500 MG tablet Take 1 tablet (500 mg) by mouth if needed in the morning and at bedtime for mild pain. 40 tablet 1 03/03/20 025 Discontinued(Re order (will not trigger notification to Pharmacy)) gabapentin (Neurontin) 300 MG capsule Take 1 capsule (300 mg) by mouth at bedtime. 30 capsule 3 03/03/20 025 Discontinued(Me d list cleanup (will not trigger notification to Pharmacy)) Active Problems Problem Noted Date Diagnosed Date [...] Encounters Date Type Department Care Team Description 08/19/2025 11:30 AM EDT Office Visit [address] [address] Stefania Hunter DO Chronic bilateral low back pain with bilateral sciatica (Primary Dx) 08/19/2025 Travel 08/19/[address] [address] Stefania Hunter DO Chart Prep 08/14/[address] [address] Stefania Hunter DO Nurse Triage 07/22/2025 Orders Only GENERIC EXTERNAL DATA DEPARTMENT Provider, Generic External Data 06/29/[address] [address] Stefania Hunter DO Referral; Care Coordination 06/03/2025 Orders Only [address] [address] Stefania Hunter DO Bilateral carpal tunnel syndrome [...] Mass Index 30 08/19/2025 12:04 PM EDT Plan of Treatment Health Maintenance Due [...] Vaccines (1 of 2) 2023 COVID-19 Vaccine (4 - season) 2025 09/11/2021, 03/05/2021, 02/12/2021 Influenza Vaccine (#1) 2025 9, 07/25/2018, 09/04/2017, Additional history exists Mammogram 12/27/2025 12/27/2023, 07/07, 01/29/2019 Alcohol/Substance Use Screening 03/04/2026 03/04/2025 Depression Screening 03/04/2026 03/04/2025, 03/04/20 25 SDOH Screening 03/04/2026 03/04/2025 Tobacco Screening 08/19/2026 08/19/2025 Cervical Cancer Screening 07/22/2030 HPV/Cotest 07/22/2030 07/22/2025, [...] bilateral low back pain with bilateral sciatica MR CERVICAL SPINE WO CONTRAST Routine 08/11/2025 6:28 PM EDT XR LUMBAR SPINE COMPLETE 4+ VIEWS Routine [...] Relevant to Health Maintenance Results * XR Sacrum Coccyx 2+ Views (08/19/2025 3:18 PM EDT) Anatomical Region Laterality Modality Sacrum, Coccyx Radiographic Georgette ging 08/19/2025 3:18 PM EDT Narrative 08/19/2025 3:38 PM EDT [address] [address] XRay Report Signed Patient: Shawna Elizondo MR#: [id number] 64 : 1975 Acct:[id number] Age/Sex: 50 / F ADM Date: 08/19/25 [facility]: Stefania Hunter DO Ordering Physician: Stefania Hunter DO Date of Service: 08/19/25 Procedure(s): XR sacrum coccyx min 2V Accession Number(s): [id number] cc: Stefania Hunter DO Reason for Exam: [...] 08/19/25 1535 DD/ 1518 TD/TT: 08/19/25 1520 Fast Food Restaurant Manager: ELLY Procedure Note Donotuseinterpreter, Image - 08/19/2025 [facility] [address] [place] [address] XRay Report Signed Patient: Shawna ElizondoMR#: [id number] 64 : 1975Acct:[id number] Age/Sex: 50 / FADM Date: 08/19/25 Loc: HO.[facility] Attending Dr: Stefania Hunter DO Ordering Physician: Stefania Hunter DO Date of Service: 08/19/25 Procedure(s): XR sacrum coccyx min 2V Accession Number(s): [id number] cc: Stefania Hunter DO Reason for Exam: [...] 08/19/25 1535 DD/ 1518 TD/TT: 08/19/25 1520 Fast Food Restaurant Manager: ELLY Stefania Hunter DO IMG XR PROCEDURES Final Resu lt * MR Cervical Spine w/o Contrast (08/11/2025 6:28 PM EDT) Anatomical Region Laterality Modality Spine, C-spine Magnetic Resonan ce 08/11/2025 6:28 PM EDT Narrative 08/12/2025 7:29 AM EDT [place] [address] Magnetic Resonance Report Signed Patient: Shawna Elizondo MR#: [id number] 64 : 1975 Acct:[id number] Age/Sex: 50 / F ADM Date: 08/11/25 Loc: HO.MRI Attending Dr: Pio STRICKLAND Ordering Physician: Pio Diamond Date of Service: 08/11/25 Procedure(s): MR cervical spine wo con Accession Number(s): [id number] cc: Stefania Hunter DO; Pio Diamond Reason for Exam: M54.12 - Radiculopathy, cervical region Workstation: [employer] EXAMINATION: MR CERVICAL SPINE WITHOUT IV CONTRAST History: M54.12 - Radiculopathy, cervical region Technique: Sagittal T1, T2 and STIR, bilateral sagittal oblique T2, and axial T1, T2 and gradient echo images of the cervical spine were obtained per departmental protocol. Comparison: Correlation is made with a CT of the cervical spine dated 06/05/2025. Findings: The vertebral bodies maintain normal height and marrow signal intensity. There is straightening of the normal cervical lordosis. There is mild degenerative disc disease at the C5-6 and C6-7 levels with osteophyte formation. At C2-3, there is no evidence of disc herniation, central spinal stenosis, or neural foraminal narrowing. At C3-4, there is no evidence of disc herniation, central spinal stenosis, or neural foraminal narrowing. At C4-5, there is no evidence of disc herniation, central spinal stenosis, or neural foraminal narrowing. At C5-6, there is a posterior disc/osteophyte complex which is asymmetric to the left. This causes mild to moderate central spinal stenosis and left neural foraminal narrowing. At C6-7, there is no evidence of disc herniation, central spinal stenosis, or neural foraminal narrowing. At C7-T1, there is no evidence of disc herniation, central spinal stenosis, or neural foraminal narrowing. The spinal cord demonstrates normal signal intensity. The visualized paraspinal soft tissues are unremarkable. MR/MR cervical spine wo con Impression: Straightening of the normal cervical lordosis. Mild degenerative disc disease at C5-6 and C6-7. Posterior disc/osteophyte complex at the C5-6 level causing mild to moderate central spinal stenosis and left neural foraminal narrowing. Electronically signed by: Nba Barcenas MD 08/12/2025 07:26 AM EDT Dictated By: Nba Barcenas MD Signed By: <Electronically signed by Nba Barcenas MD in OV> 08/12/25725 DD/ 27 TD/TT: 08/11/25 184 Fast Food Restaurant Manager: Procedure Note Donotuseinterpreter, Image - 08/12/2025 [place] [address] Magnetic Resonance Report Signed Patient: Shawna Elizondo#: [id number] 64 : 1975Acct:[id number] Age/Sex: 50 / FADM Date: 08/11/25 Loc: HO.MRI Attending Dr: Pio STRICKLAND Ordering Physician: Pio Diamond Date of Service: 08/11/25 Procedure(s): MR cervical spine wo con Accession Number(s): [id number] cc: Stefania Hunter DO; Pio Diamond Reason for Exam: M54.12 - Radiculopathy, cervical region Workstation: [id number] EXAMINATION: MR CERVICAL SPINE WITHOUT IV CONTRAST History: M54.12 - Radiculopathy, cervical region Technique: Sagittal T1, T2 and STIR, bilateral sagittal oblique T2, and axial T1, T2 and gradient echo images of the cervical spine were obtained per departmental protocol. Comparison: Correlation is made with a CT of the cervical spine dated 06/05/2025. Findings: The vertebral bodies maintain normal height and marrow signal intensity. There is straightening of the normal cervical lordosis. There is mild degenerative disc disease at the C5-6 and C6-7 levels with osteophyte formation. At C2-3, there is no evidence of disc herniation, central spinal stenosis, or neural foraminal narrowing. At C3-4, there is no evidence of disc herniation, central spinal stenosis, or neural foraminal narrowing. At C4-5, there is no evidence of disc herniation, central spinal stenosis, or neural foraminal narrowing. At C5-6, there is a posterior disc/osteophyte complex which is asymmetric to the left. This causes mild to moderate central spinal stenosis and left neural foraminal narrowing. At C6-7, there is no evidence of disc herniation, central spinal stenosis, or neural foraminal narrowing. At C7-T1, there is no evidence of disc herniation, central spinal stenosis, or neural foraminal narrowing. The spinal cord demonstrates normal signal intensity. The visualized paraspinal soft tissues are unremarkable. MR/MR cervical spine wo con Impression: Straightening of the normal cervical lordosis. Mild degenerative disc disease at C5-6 and C6-7. Posterior disc/osteophyte complex at the C5-6 level causing mild to moderate central spinal stenosis and left neural foraminal narrowing. Electronically signed by: Nba Barcenas MD 08/12/2025 07:26 AM EDT Dictated By: Nba Barcenas MD Signed By: <Electronically signed by Nba Barcenas MD in OV> 08/12/25725 DD/ 27 TD/TT: 08/11/25 1847 Fast Food Restaurant Manager: [facility] External Provider IMG MRI PROCEDURES Final Result * XR Lumbar Spine Complete 4+ Views (07/27/2025 2:10 PM EDT) Anatomical Region Laterality Modality Spine, L-spine Radiographic Georgette ging 07/27/2025 2:10 PM EDT Narrative 07/27/2025 2:46 PM EDT [address] [address] XRay Report Signed Patient: Shawna Elizondo MR#: [id number] 64 : 1975 Acct:[id number] Age/Sex: 50 / F ADM Date: 07/27/25 Loc: [facility] Attending Dr: Moriah CASTELLANOS Ordering Physician: Moriah Schwartz Date of Service: 07/27/25 Procedure(s): XR lumbar spine 4V min Accession Number(s): [id number] cc: Moriah Schwartz; Stefania Hunter DO Reason [...] Titus Sandoval MD 07/27/2025 02:43 PM EDT Dictated By: Titus Sandoval MD Signed By: <Electronically signed by Titus Sandoval MD in OV> 07/27/25 1443 DD/ 1410 TD/TT: 07/27/25 1426 Fast Food Restaurant Manager: Procedure Note Donotuseinterpreter, Image - 07/27/[address] [address] XRay Report Signed Patient: Shawna ElizondoMR#: [id number] 64 : 1975Acct:[id number] Age/Sex: 50 / FADM Date: 07/27/25 Loc: [facility] Attending Dr: Moriah CASTELLANOS Ordering Physician: Moriah Schwartz Date of Service: 07/27/25 Procedure(s): XR lumbar spine 4V min Accession Number(s): [id number] cc: Moriah Schwartz; Stefania Hunter DO Reason [...] 07/27/25 1443 DD/ 1410 TD/TT: 07/27/25 1426 Fast Food Restaurant Manager: [facility] External Provider IMG XR PROCEDURES Final Result * HPV DNA, Low/High Risk (07/22/2025 2:19 PM EDT) HPV High Risk Negative Negative [facility] HPV Genotype 16 Negative Negative [facility] HPV Genotype 18 Negative Negative [facility] Comment:HPV testing performe d at [facility] (CLIA#[id number]), [address] [place] [address].Testing for HPV was performed using the [employer] Viagogo0system. The presence of HPV in the female [...] 2:19 PM EDT 07/23/2025 7:46 AM EDT us Generic External Data Provider LAB BLOOD ORDERAB LES Final Result [facility] [address] [place] [phone] * Pap Smear (07/22/2025 2:19 PM EDT) 07/22/2025 2:19 PM EDT 07/23/2025 7:46 AM EDT Narrative [facility] - 07/27/2025 9:23 AM EDT ----- ------- Name: Shawna Elizondo Age/Sex: 50/F : 1975 Unit#: [id number] Attend Dr: Jassi Nieto MD Re07/22/25 Status: DEP REF Location: .LNP Disch: ----- ------- SPEC : [id number] RECD: 07/23/250746 STATUS: CHAZ BOONE NUM: [id number] MARA: 07/22/25-1419 [facility] DR: Jassi Nieto MD ENTERED: 07/23/25 SP TYPE: Pap Smr [facility] DR: Stefania Hunter DO ORDERED: Pap Smear [...] and HPV testing will be performed at [facility] (CLIA #[id number]), [address] [place] [address]. Testing for HPV was performed using the [employer] Viagogo0 system. The presence of HPV in the [...] detected. All professional services are performed by [facility] ([address] [place] [address]; ; CLIA #[id number]). The PAP Test is a screening procedure with the inherent possibility of both false negative and false positive results. Results should be interpreted in the context of historic and current clinical findings. Reliability of the PAP Test is enhanced by performing the test on a regular repetitive basis. CONTINUED ON NEXT PAGE ----- ------- Name: Shawna Elizondo Age/Sex: 50/F : 1975 Unit#: [id number] Attend Dr: Jassi Nieto MD Re07/22/25 Status: DEP REF Location: LNP Disch: ----- ------- SPEC : [id number] RECD: 07/23/25 STATUS: CHAZ BOONE NUM: [id number] MARA: 07/22/25 [facility] DR: Jassi Nieto MD ENTERED: 07/23/25 SP TYPE: Pap Smr OTHR DR: Stefania Hunter DO ORDERED: Pap Smear Copies To: Stefania Hunter DO [address] [address] Jassi Nieto MD [facility] [address] [place] [address] [place] [id number] ----- ------- Signed (signature on file) CAROLYNE Robles ([facility]) 07/27/2564 ----- ------- END OF REPORT us Generic External Data Provider LAB CYTOLOGY ORDOksana GARY Final Result [facility] [address] [place] [phone] * CT Cervical Spine w/o Contrast (06/05/2025 2:46 PM EDT) Anatomical Region Laterality Modality Spine, C-spine Computed Tomogra phy 06/05/2025 2:46 PM EDT Narrative 06/05/2025 3:[address] PM EDT [address] [address] [address] Scan Report Signed Patient: Shawna Elizondo MR#: [id number] 64 : 1975 Acct:[id number] Age/Sex: 50 / F ADM Date: 06/05/25 Loc: HO.ED Attending Dr: Ordering Physician: Aiyana Lange CNP Date of Service: 06/05/25 Procedure(s): CT cervical spine wo IV con Accession Number(s): [id number] cc: Aiyana Lange CNP; Stefania Hunter DO Report Number: [id number]: Total DLP = 381.00 mGy-cm EXAMINATION: CT [...] 06/05/25 1534 DD/ 1446 TD/TT: 06/05/25 1501 Fast Food Restaurant Manager: Procedure Note Donotuseinterpreter, Image - 06/05/[address] [place] [address] [address] Scan Report Signed Patient: Shawna ElizondoMR#: [id number] 64 : 1975Acct:[id number] Age/Sex: 50 / FADM Date: 06/05/25 Loc: HO.ED Attending Dr: Ordering Physician: Aiyana Lange CNP Date of Service: 06/05/25 Procedure(s): CT cervical spine wo IV con Accession Number(s): [id number] cc: Aiyana Lange CNP; Stefania Hunter DO Report Number: [id number]: Total DLP = 381.00 mGy-cm EXAMINATION: CT [...] 06/05/25 1534 DD/ 1446 TD/TT: 06/05/25 1501 Fast Food Restaurant Manager: [facility] External Provider IMG CT PROCEDURES Final Result * Hepatitis C Antibody with Reflex to HCV, RNA, Quantitative, Real-Time PCR (04/06/2025 10:15 AM EDT) Hepatitis C Antibody Nonreactive Nonreactive [facility] Comment:Antibodies to HCV no t detected; does not exclude early acuteHCV infection. Blood Venous blood specimen / Unknown 04/06/2025 10:15 AM EDT 04/06/2025 11:23 AM EDT Stefania Hunter DO LAB BLOOD ORDERABLES Final R esult Performing Organization Address City/[facility]/ZIP Co de Phone Number [facility] [address] [place] [phone] * HIV-1/2 Antigen and Antibodies, Fourth Generation, with Reflexes (04/06/2025 10:15 AM EDT) [facility] HIV AB/AG Nonreactive Nonreactive [facility] Comment:HIV-1 p24 Ag and/or HIV-1/HIV-2 Ab not detected.A test result that is nonreactive does not exclude thepossibility of exposure to or infection with HIV-1 and/orHIV-2. Nonreactive results in this assay for individualswith prior exposure to HIV-1 and/or HIV-2 may be due toantigen and antibody levels that are below the limit ofdetection of this assay.The [employer] Combustion HIV Ag/Ab Combo assay result andsupplemental assay results should be interpreted inconjunction with the patient's clinical presentation,history and other laboratory results. If the results areinconsistent with clinical evidence, additional testing issuggested to confirm the result. Blood Venous blood specimen / Unknown 04/06/2025 10:15 AM EDT 04/06/2025 11:23 AM EDT Stefania Hunter DO LAB BLOOD ORDERABLES Final R esult Performing Organization Address City/[facility]/ZIP Co de Phone Number [facility] [address] [place] [phone] [phone] * BI Mammogram Screening Tomosynthesis Bilateral (12/27/2023 1:20 PM EST) Anatomical Region Laterality Modality Breast Bilateral Mammography 12/27/2023 1:20 PM EST Narrative 01/20/2024 7:59 AM EDT [address] [place] [address] Mammography Report Signed Patient: Shawna Elizondo MR#: [id number] 64 : 1975 Acct:[id number] Age/Sex: 48 / F ADM Date: 12/27/23 Loc: HO.MAMMO Attending Dr: Stefania Hunter DO Ordering Physician: Stefania Hunter DO Results: 2B enign Findings Date of Service: 12/27/23 Follow Up: 1 Year From Orig inal Mammogram Procedure(s): MM tomosynthesis screening BI Accession Number(s): [id number] cc: Stefania Hunter DO EXAMINATION: MM SCREENING [...] in OV> 01/20/24 0756 DD/ 1320 TD/TT: Fast Food Restaurant Manager: Procedure Note Donotuseinterpreter, Image - 01/21/[address] [place] [address] Mammography Report Signed Patient: Shawna ElizondoMR#: [id number] 64 : 1975Acct:[id number] Age/Sex: 48 / FADM Date: 12/27/23 Loc: HO.MAMMO Attending Dr: Stefania Hunter DO Ordering Physician: Stefania Hunterults: 2B enign Findings Date of Service: 12/27/23Follow Up: 1 Year From Orig inal Mammogram Procedure(s): MM tomosynthesis screening BI Accession Number(s): [id number] cc: Stefania Hunter DO EXAMINATION: MM SCREENING [...] in OV> 01/20/24 0756 DD/ 1320 TD/TT: Fast Food Restaurant Manager: us Stefania Hunter DO IMG BI PROCEDURES Final Resu lt from Last 3 Months or Most Recently Relevant to Health Maintenance Insurance [employer] Care Teams Frog Or Oyster Farmworker Relationship Specialty Start Date End Date Stefania Hunter DO [address] [place] [address] PCP - General Family Medicine 11/05/18
--- OUTSIDE RECORDS SUMMARY | 2025-08-19 17:51 | XMS_ITS | Encounter Summary ---
Author Organization [employer] Address [address] [facility] [address]t [place] [address] Care Team Providers Care Industrial Welder Name Role Phone Stefania Hunter DO Primary Care Provider + [phone] Reason for Visit * Reason Onset Date Comments Appointment Request 11/08/2023 Encounter Details Date Type Department Care Team ([facility] st Contact Info) Description 11/08/2023 Telephone [facility] [address] [place] [address] Stefania Hunter DO [address] [place] [address] Appointment Request Social History Tobacco Use Types [...] cancer as well. Please contact pt at [phone] documented in this encounter Plan of Treatment Not on file documented as of this encounter Visit Diagnoses Not on filedocumented in this encounter Care Teams Industrial Welder Relationship Specialty Start Date End Date Stefania Hunter DO [address] [place] [address] PCP - General Family Medicine 11/05/18 documented as of this encounter
--- OUTSIDE RECORDS SUMMARY | 2025-08-19 17:51 | XMS_ITS | Encounter Summary ---
Author Organization [email or web address] Address [address] [place] [address] [address] [place] [address] Care Team Providers Care Gear Grinding Machine Operator Name Role Phone Stefania Hunter DO Primary Care Provider [phone] Reason for Visit * Reason Onset Date Comments Appointment Request 05/20/2024 Encounter Details Date Type Department Care Team ([facility] st Contact Info) Description 05/20/2024 Telephone [facility] [address] [place], [place] [phone] Stefania Hunter DO [address] [place] [address] Appointment Request Social History Tobacco Use Types [...] on filedocumented in this encounter Care Teams Gear Grinding Machine Operator Relationship Specialty Start Date End Date Stefania Hunter DO [address] [place] [address] PCP - General Family Medicine 11/05/18 documented as of this encounter
--- OUTSIDE RECORDS SUMMARY | 2025-08-19 17:51 | XMS_ITS | Encounter Summary ---
Author Organization [employer] Address [address] [facility] [address] [place] [address] Care Team Providers Care Aircraft Maintenance Instructor Name Role Phone Stefania Hunter Primary Care Provider + [phone] Encounter Details Date Type Department Care Team (Latest Contact Info) Description 08/19/2025 Travel Social History Tobacco Use Types Packs/Day [...] documented as of this encounter Care Teams Aircraft Maintenance Instructor Relationship Specialty Start Date End Date Stefania Hunter DO [address] [place] [address] PCP - General Family Medicine 11/05/18 documented as of this encounter
--- OUTSIDE RECORDS SUMMARY | 2025-08-19 17:51 | XMS_ITS | Encounter Summary ---
Author Organization [employer] Address [address] [facility] 7[address] [place] [address] Care Team Providers Care Music Therapy Specialist Name Role Phone Stefania Hunter DO Primary Care Provider + [phone] Reason for Visit * Reason Onset Date Comments Nurse Triage 08/14/2025 Encounter Details Date Type Department Care Team ([facility] st Contact Info) Description 08/14/2025 Telephone [facility] MEDICINE [address] [place], [place] [phone] Stefania Hunter DO [address] [place] [address] Nurse Triage Social History Tobacco Use Types [...] encounter Miscellaneous Notes * Telephone Encounter - Nayely Gaona RN - 08/14/2025 11:53 AM EDT TC with director of physician practices. Patient stated she hurt her lower back liliane at work a week ago. Stated the pain is 7/10 and steady. Pain runs down bilateral lower extremities. When asked to describe pain, patient kept saying steady. She has been taking gabapentin 300 mg (part of her daily medications) Denies taking Tylenol or Ibuprofen. Denies any sudden loss of control of bowel or bladder. Able to move and control Bilateral lower extremities. Explained RN recommends patient go to walk-in clinic jong evaluated. Patient refused. RN recommended patient go to ER, patient refused. Patient requested an appointment to see PCP only. Appointment made for 08/19. Stated Protocol Used: Back Pain (Adult) Protocol-Based Disposition: See in Office or Video Visit Today Video visit offered but caller declined Positive Triage Questions: * Pain radiates into the thigh or further down the leg, and in both legs * Moderate back pain (e.g., interferes with normal activities) and present > 3 days * Pain radiates into the thigh or further down the leg * Patient wants to be seen * Caused by a twisting, bending, or lifting injury * Caused by overuse from recent vigorous activity (e.g., exercise, gardening, lifting and carrying,sports) * Back pain * Preventing back strain, questions about * All higher-acuity triage questions were negative Care Advice Discussed: * Reasons To Call Back - Severe pain not better after taking pain medicines - Moderate pain (interferes with normal activities) lasts over 3 days - Pain begins to shoot into the leg - Pain lasts over 2 weeks - Fever occurs - Numbness or weakness occurs - Loss of control of your bladder or bowel - You become worse * Reasons To Call Back - Fever occurs - Numbness or weakness occurs - Loss of control of your bladder or bowel - Severe pain not better after taking pain medicines - Pain begins to shoot into the leg - Pain lasts over 2 weeks - Pain becomes worse - You become worse * Telephone Encounter - Jose Pardo - 08/14/2025 11:08 AM EDT Symptom: Back Pain - Not From Injury Outcome: Transfer to a nurse or provider NOW! Reason: Age over 30: sudden AND severe upper back pain The caller accepted this outcome. Contact pt at [phone] documented in this encounter Plan of Treatment Not on file documented as of this encounter Visit Diagnoses Not on filedocumented in this encounter Additional Health Concerns Assessment Noted Time PHQ-9 Depression Total Score: 1 03/04/20 25 8:19 AM EDT documented as of this encounter Care Teams Music Therapy Specialist Relationship Specialty Start Date End Date Stefania Hunter DO [address] [place] [id number] PCP - General Family Medicine 11/05/18 documented as of this encounter
== END 2025-08-19 14:04 | disposition home or self-care (01) ==
LOC: HO.HHCX 14:03
PROVIDERS: PCP Family Medicine; Visit Provider Family Medicine
DX: M54.42 Lumbago with sciatica, left side (principal); M54.41 Lumbago with sciatica, right side; G89.29 Other chronic pain
CPT/HCPCS: 72220

== ENCOUNTER → 2025-08-19 14:09 | Outpatient (BNV) | payer OTHER, SELFPAY | PROVIDERS: PCP Family Medicine; Visit Provider Radiology Diagnostic Ultrasound | DX: M53.3 Sacrococcygeal disorders, not elsewhere classified (principal) | CPT/HCPCS: 72220 ==

== ENCOUNTER 2025-08-24 13:26 | Outpatient (AMB) | payer OTHER, SELFPAY ==
--- OUTSIDE RECORDS SUMMARY | 2025-08-19 11:30 | XMS_ITS | Encounter Summary ---
Author Organization [employer] Address [address] [place] [address] [address] [place] [address] Care Team Providers Care Special Agent Secret Service Name Role Phone Stefania Hunter DO Primary Care Provider [phone] Reason for Referral * Imaging (Routine) - Authorized Specialty Diagnoses / Procedures Referred By Bryan jerry Referred To Contact Radiology Diagnoses Chronic bilateral low back pain with bilateral sciatica Procedures MR Lumbar Spine w/o Contrast Stefania Hunter DO [address] [place] [address] Phone: tel: fax: [address] Phone: tel: fax: Referral ID Status Reason Start Date Expiration Date V isits Requested Visits Authorized [id number] Authorized 08/19/2025 08/19/2026 1 1 * Neurology (Routine) - Authorized Specialty Diagnoses / Procedures Referred By Bryan jerry Referred To Contact Diagnoses Chronic bilateral low back pain with bilateral sciatica Procedures Nerve conduction test Stefania Hunter DO [address] [place] [address] Phone: tel: fax: [address] Phone: tel: fax: Referral ID Status Reason Start Date Expiration Date V isits Requested Visits Authorized [id number] Authorized 08/19/2025 08/19/2026 1 1 * Neurology (Routine) - Authorized Specialty Diagnoses / Procedures Referred By Bryan jerry Referred To Contact Diagnoses Chronic bilateral low back pain with bilateral sciatica Procedures EMG Stefania Hunter DO [address] [place] [address] Phone: tel: fax: [address] Phone: tel: fax: Referral ID Status Reason Start Date Expiration Date V isits Requested Visits Authorized [id number] Authorized 08/19/2025 08/19/2026 1 1 Encounter Details Date Type Department Care Team (Late st Contact Info) Description 08/19/2025 11:30 AM EDT Office Visit [facility] [address] [place] [address] Stefania Hunter DO [address] [place] [address] Chronic bilateral low back pain with bilateral sciatica (Primary Dx) Social History Tobacco Use Types Packs/Day Years [...] Sign Reading Time Taken Comments Blood Pressure 110/70 08/19/2025 12:04 PM EDT Pulse 82 08/19/2025 12:04 PM EDT Temperature 36.9 C (98.4 F) 08/19/2025 12:04 PM EDT Respiratory Rate 19 08/19/2025 12:04 PM EDT Oxygen Saturation 98% 08/19/2025 12:04 PM EDT Inhaled Oxygen Concentration - - Weight 74.4 kg (164 lb) 08/19/2025 12:04 PM EDT Height 157.5 cm (5' 2 ) 08/19/2025 12:04 PM EDT Body Mass Index 30 08/19/2025 12:04 PM EDT documented in this encounter Plan of Treatment Scheduled Orders Name Type Priority Associated Diagnoses Orde r Schedule EMG Neurology Routine Chronic bilateral low back pain with bilateral sciatica Expected: 08/19/2025 (Approximate), Expires: 08/19/2026 Nerve conduction test Neurology Routine Chronic bilateral low back pain with bilateral sciatica Expected: 08/19/2025 (Approximate), Expires: 08/19/2026 MR Lumbar Spine w/o Contrast Imaging Routine Chronic bilateral low back pain with bilateral sciatica Expected: 08/19/2025, Expires: 08/19/2026 documented as of this encounter Procedures Procedure Name Priority Date/Time Associated Diagnosis Comments XR SACRUM COCCYX 2+ VIEWS Routine 08/19/2025 3:18 PM EDT Chronic bilateral low back pain with bilateral sciatica documented in this encounter Results * XR Sacrum Coccyx 2+ Views (08/19/2025 3:18 PM EDT) Anatomical Region Laterality Modality Sacrum, Coccyx Radiographic Georgette ging 08/19/2025 3:18 PM EDT Narrative 08/19/2025 3:38 PM EDT [address] [address] XRay Report Signed Patient: Alia Elizondo MR#: [id number] 62 : 1975 Acct:[id number] Age/Sex: 50 / F ADM Date: 08/19/25 [facility]: Stefania Hunter DO Ordering Physician: Stefania Hunter DO Date of Service: 08/19/25 Procedure(s): XR sacrum coccyx min 2V Accession Number(s): [id number] cc: Stefania Hunter DO Reason for Exam: severe mid sacral pain EXAMINATION: XR SACRUM AND COCCYX CLINICAL INFORMATION: severe mid sacral pain COMPARISON: None available. TECHNIQUE: 2 views of the sacrum and 2 views of the coccyx were obtained. FINDINGS: No visible acute fracture or malalignment. Joint spaces are maintained. Mild symphysis pubis degeneration. SI joints are symmetric. No suspicious bony lesions. No abnormal soft tissue calcification. Metallic keira projected anterior to the L5 vertebral body. XR/XR sacrum coccyx min 2V IMPRESSION: No radiographic evidence of acute osseous findings. Clinically correlate. Further CT or MRI evaluation as clinically indicated. Electronically signed by: Art Darling MD 08/19/2025 03:35 PM EDT Dictated By: Art Darling MD Signed By: <Electronically signed by Art Darling MD in OV> 08/19/25 1535 DD/ 1518 TD/TT: 08/19/25 1520 Fugitive Detective: ELLY Procedure Note Donotuseinterpreter, Image - 08/19/2025 [facility] [address] [place] [address] XRay Report Signed Patient: Alia ElizondoMR#: [id number] 62 : 1975Acct:[id number] Age/Sex: 50 / FADM Date: 08/19/25 Loc: [facility] Attending Dr: Stefania Hunter DO Ordering Physician: Stefania Hunter DO Date of Service: 08/19/25 Procedure(s): XR sacrum coccyx min 2V Accession Number(s): [id number] cc: Stefania Hunter DO Reason for Exam: severe mid sacral pain EXAMINATION: XR SACRUM AND COCCYX CLINICAL INFORMATION: severe mid sacral pain COMPARISON: None available. TECHNIQUE: 2 views of the sacrum and 2 views of the coccyx were obtained. FINDINGS: No visible acute fracture or malalignment. Joint spaces are maintained. Mild symphysis pubis degeneration. SI joints are symmetric. No suspicious bony lesions. No abnormal soft tissue calcification. Metallic keira projected anterior to the L5 vertebral body. XR/XR sacrum coccyx min 2V IMPRESSION: No radiographic evidence of acute osseous findings. Clinically correlate. Further CT or MRI evaluation as clinically indicated. Electronically signed by: Art Darling MD 08/19/2025 03:35 PM EDT Dictated By: Art Darling MD Signed By: <Electronically signed by Art Darling MD in OV> 08/19/25 1535 DD/ 1518 TD/TT: 08/19/25 1520 Fugitive Detective: ELLY Stefania Hunter DO IMG XR PROCEDURES Final Resu lt documented in this encounter Visit Diagnoses Diagnosis Chronic bilateral low back pain with bilateral sciatica- Primary documented in this encounter Additional Health Concerns Assessment Noted Time PHQ-9 Depression Total Score: 1 03/04/20 25 8:19 AM EDT documented as of this encounter Care Teams Special Agent Secret Service Relationship Specialty Start Date End Date Stefania Hunter DO [address] [place] [id number] PCP - General Family Medicine 11/05/18 documented as of this encounter
--- NOTE | 2025-08-24 13:27 | HO.SPINEOV ---
Intake Visit Reasons: MRI follow up Intake Note: Ms. Elizondo is here today to F/u on the results to her MRI. Accounting Tutor Required: Yes Accounting Tutor Language: Home Appliance Installer Services: Accounting Tutor Present Accounting Tutor Name: Petrona V. LM Allergies morphine (MORPHINE) Allergy (Intermediate, Verified 08/24/25 13:32) STOMACH UPSET, severe abd pain clarithromycin (From Biaxin) Allergy (Unknown, Verified 08/24/25 13:32) Headache metronidazole (Flagyl) Allergy (Unknown, Verified 08/24/25 13:32) Fainting spell, dizziness, headache Penicillins (PENICILLINS) Allergy (Unknown, Verified 08/24/25 13:32) HIVES Assessment & Plan Assessment & Plan (1) Carpal tunnel syndrome: Code(s): G56.00 - Carpal tunnel syndrome, unspecified upper limb Category: Medical Plan Alia is a pleasant 50-year-old female who comes in today for a follow-up visit to review her cervical MRI. To recap she was experiencing some fairly significant posterior/ left-sided neck pain, and occasional shooting pain down her left arm with severe exacerbations only. In addition to this she reported bilateral hand numbness, worse with activities such as driving. She has an EMG showing moderate-severe bilateral carpal tunnel syndrome. She reports that her symptoms have actually improved as she has stopped working for the past few weeks. We reviewed her MRI imaging which only shows mild-moderate left-sided foraminal stenosis at C5-6. We extensively reviewed her MRI imaging results. Trena's accompanied by her to this visit who asked many questions regarding her MRI, the MRI read, and her current injury. He requested documentation from us proving that this injury was sustained at work. I do not have any supporting evidence to do this. The patient discloses that she thinks the injury happened as a result of working because she has to use her hands/arms all day at work, and that looking down at what she is doing throughout the day seems to have either created or exacerbated her neck pain. 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 I explained to the patient that I do not believe that her mild impingement seen at C5-6 best explains her symptoms. More so, her symptoms sound like they are originating primarily from her moderate-severe median nerve impingement. We did discuss the possibility of a left-sided carpal tunnel release as her left sided symptoms are much worse than right side. She is agreeable to proceeding with the surgery. I will discuss this with my attending neurosurgeon Dr. Stephenson, and likely have her booked her surgery thereafter. We discussed the risks/benefits of surgery including continued pain, continued numbness, continued weakness of the hand. He understands there is risk of nerve/vasculature injury as a result of the surgery. He understands that all surgeries carry the risk of bleeding/infection. He also understands that his symptoms may worsen as a result of complications from the surgery, and wishes to proceed. Pio Stephenson MD,PhD [facility] [employer] Coding Level of Care Code Est Pt Level 3 (46516) Diagnoses Carpal tunnel syndrome G56.00
--- OUTSIDE RECORDS SUMMARY | 2025-08-24 16:32 | XMS_ITS | Encounter Summary ---
Author Organization [employer] Address [address] [facility] [address] [place] [address] Care Team Providers Care Laser Systems Engineer Name Role Phone Stefania Hunter DO Primary Care Provider + [phone] Reason for Visit * Reason Onset Date Comments Chart Prep 08/19/2025 Encounter Details Date Type Department Care Team ([facility] st Contact Info) Description 08/19/2025 Telephone [facility] MEDICINE [address] [place], [place] [phone] Stefania Hunter DO [address] [place] [address] Chart Prep Social History Tobacco Use Types [...] documented as of this encounter Care Teams Laser Systems Engineer Relationship Specialty Start Date End Date Stefania Hunter DO [address] [place] [address] PCP - General Family Medicine 11/05/18 documented as of this encounter
--- OUTSIDE RECORDS SUMMARY | 2025-08-24 16:32 | XMS_ITS | Encounter Summary ---
Author Organization [employer] Address [address] [facility] 7[address] [place] [address] Care Team Providers Care Telephone Ad Taker Name Role Phone Stefania Hunter Primary Care Provider + [phone] Encounter Details Date Type Department Care Team [...] documented as of this encounter Care Teams Telephone Ad Taker Relationship Specialty Start Date End Date Stefania Hunter DO [address] [place] [id number] PCP - General Family Medicine 11/05/18 documented as of this encounter
--- OUTSIDE RECORDS SUMMARY | 2025-08-24 16:32 | XMS_ITS | Encounter Summary ---
Author Organization [employer] Address [address] [facility] [address] [place] [address] Care Team Providers Care Planogrammer Name Role Phone Stefania Hunter DO Primary Care Provider + [phone] Reason for Visit * Reason Onset Date Comments Appointment Request 11/08/2023 Encounter Details Date Type Department Care Team ([facility] st Contact Info) Description 11/08/2023 Telephone [facility] MEDICINE [address] [place] [address] Stefania Hunter DO [address] [place] [address] Appointment Request Social History Tobacco Use Types [...] cancer as well. Please contact pt at [phone] documented in this encounter Plan of Treatment Not on file documented as of this encounter Visit Diagnoses Not on filedocumented in this encounter Care Teams Planogrammer Relationship Specialty Start Date End Date Stefania Hunter DO [address] [place] [address] PCP - General Family Medicine 11/05/18 documented as of this encounter
--- OUTSIDE RECORDS SUMMARY | 2025-08-24 16:32 | XMS_ITS | Encounter Summary ---
Author Organization [employer] Address [address] [facility] 7t [place] [address] Care Team Providers Care Manager Strategic Development Name Role Phone Stefania Hunter DO Primary Care Provider [phone] Encounter Details Date Type Department Care Team (Late st Contact Info) Description 08/03/2023 Abstract [facility] MEDICINE [address] [place] [address] Stefania Hunter DO [address] [place] [address] Social History Tobacco Use Types Packs/Day Years [...] filedocumented in this encounter Care Teams Manager Strategic Development Relationship Specialty Start Date End Date Stefania Hunter DO [address] [place] [id number] PCP - General Family Medicine 11/05/18 documented as of this encounter
--- OUTSIDE RECORDS SUMMARY | 2025-08-24 16:32 | XMS_ITS | Encounter Summary ---
Author Organization [employer] Address [address] [facility] 7t [place] [address] Care Team Providers Care Completion Manager Name Role Phone Stefania Hunter DO Primary Care Provider [phone] Reason for Visit * Reason Onset Date Comments Nurse Triage 01/13/2025 Encounter Details Date Type Department Care Team ([facility] st Contact Info) Description 01/13/2025 Telephone [facility] MEDICINE [address] [place], [place] [phone] Stefania Hunter DO [address] [place] [address] Nurse Triage Social History Tobacco Use Types [...] acuity questions The caller accepted this outcome. [phone] arabic documented in this encounter Plan of Treatment Not on file documented as of this encounter Visit Diagnoses Not on filedocumented in this encounter Care Teams Completion Manager Relationship Specialty Start Date End Date Stefania Hunter DO [address] [place] [address] PCP - General Family Medicine 11/05/18 documented as of this encounter
--- OUTSIDE RECORDS SUMMARY | 2025-08-24 16:32 | XMS_ITS | Clinical Summary ---
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) 08/19/2025 Travel 08/19/[address] [address] Stefania Hunter DO Chart Prep 08/14/[address] [address] Stefania Hunter DO Nurse Triage 07/22/2025 Orders Only GENERIC EXTERNAL DATA DEPARTMENT Provider, Generic External Data 06/29/[address] [address] Stefania Hunter DO Referral; Care Coordination 06/03/2025 Orders Only [address] [address] Stefania Hunter DO Bilateral carpal tunnel syndrome [...] PM EDT Narrative 08/19/2025 3:38 PM EDT [address] [address] XRay Report Signed Patient: Shawna Elizondo MR#: [id number] 64 : 1975 Acct:[id number] Age/Sex: 50 / F ADM Date: 08/19/25 [facility]: Stefania Hunter DO Ordering Physician: Stefania Hunter DO Date of Service: 08/19/25 Procedure(s): XR sacrum coccyx min 2V Accession Number(s): [id number] cc: Stefania Hunter DO Reason for Exam: [...] 08/19/25 1535 DD/ 1518 TD/TT: 08/19/25 1520 Metal Grader: ELLY Procedure Note Donotuseinterpreter, Image - 08/19/2025 [facility] [address] [place] [address] XRay Report Signed Patient: Shawna ElizondoMR#: [id number] 64 : 1975Acct:[id number] Age/Sex: 50 / FADM Date: 08/19/25 Loc: HO.[facility]X Attending Dr: Stefania Hunter DO Ordering Physician: Stefania Hunter DO Date of Service: 08/19/25 Procedure(s): XR sacrum coccyx min 2V Accession Number(s): [id number] cc: Stefania Hunter DO Reason for Exam: [...] 08/19/25 1535 DD/ 1518 TD/TT: 08/19/25 1520 Metal Grader: ELLY Stefania Hunter DO IMG XR PROCEDURES Final Resu lt * MR Cervical Spine w/o Contrast (08/11/2025 6:28 PM EDT) Anatomical Region Laterality Modality Spine, C-spine Magnetic Resonan ce 08/11/2025 6:28 PM EDT Narrative 08/12/2025 7:29 AM EDT [place] [address] Magnetic Resonance Report Signed Patient: Shawna Elizondo MR#: [id number] 64 : 1975 Acct:[id number] Age/Sex: 50 / F ADM Date: 08/11/25 Loc: HO.MRI Attending Dr: Pio STRICKLAND Ordering Physician: Pio Diamond Date of Service: 08/11/25 Procedure(s): MR cervical spine wo con Accession Number(s): [id number] cc: Stefania Hunter DO; Pio Diamond Reason for Exam: M54.12 - Radiculopathy, cervical region Workstation: [id number] EXAMINATION: MR CERVICAL SPINE WITHOUT IV CONTRAST [...] OV> 08/12/25725 DD/ 27 TD/TT: 08/11/25 184 Metal Grader: Procedure Note Donotuseinterpreter, Image - 08/12/2025 [place] [address] Magnetic Resonance Report Signed Patient: Shawna Elizondo#: [id number] 62 : 1975Acct:[id number] Age/Sex: 50 / FADM Date: 08/11/25 Loc: HO.MRI Attending Dr: Pio STRICKLAND Ordering Physician: Pio Diamond Date of Service: 08/11/25 Procedure(s): MR cervical spine wo con Accession Number(s): [id number] cc: Stefania Hunter DO; Pio Diamond Reason for Exam: M54.12 - Radiculopathy, cervical region Workstation: [id number] EXAMINATION: MR CERVICAL SPINE WITHOUT IV CONTRAST [...] OV> 08/12/25725 DD/ 27 TD/TT: 08/11/25 1847 Metal Grader: [facility] External Provider IMG MRI PROCEDURES Final Result * XR Lumbar Spine Complete 4+ Views (07/27/2025 2:10 PM EDT) Anatomical Region Laterality Modality Spine, L-spine Radiographic Georgette ging 07/27/2025 2:10 PM EDT Narrative 07/27/2025 2:46 PM EDT [address] [address] XRay Report Signed Patient: Shawna Elizondo MR#: [id number] 64 : 1975 Acct:[id number] Age/Sex: 50 / F ADM Date: 07/27/25 Loc: DAKSHA Attending Dr: Moriah CASTELLANOS Ordering Physician: Moriah Schwartz Date of Service: 07/27/25 Procedure(s): XR lumbar spine 4V min Accession Number(s): [id number] cc: Moriah Schwartz; Stefania Hunter DO Reason [...] 07/27/25 1443 DD/ 1410 TD/TT: 07/27/25 1426 Metal Grader: Procedure Note Donotuseinterpreter, Image - 07/27/[address] [address] XRay Report Signed Patient: Shawna ElizondoMR#: [id number] 62 : 1975Acct:[id number] Age/Sex: 50 / FADM Date: 07/27/25 Loc: DAKSHA Attending Dr: Moriah CASTELLANOS Ordering Physician: Moriah Schwartz Date of Service: 07/27/25 Procedure(s): XR lumbar spine 4V min Accession Number(s): [id number] cc: Moriah Schwartz; Stefania Hunter DO Reason [...] 07/27/25 1443 DD/ 1410 TD/TT: 07/27/25 1426 Metal Grader: [facility] External Provider IMG XR PROCEDURES Final Result * HPV DNA, Low/High Risk (07/22/2025 2:19 PM EDT) HPV High Risk Negative Negative [facility] HPV Genotype 16 Negative Negative [facility] HPV Genotype 18 Negative Negative [facility] Comment:HPV testing performe d at [facility] (CLIA#[id number]), [address] [place] [address].Testing for HPV was performed using the [employer]system. The presence of HPV in the female [...] Provider LAB BLOOD ORDERAB LES Final Result [facility] [address] [place] [phone] * Pap Smear (07/22/2025 2:19 PM EDT) 07/22/2025 2:19 PM EDT 07/23/2025 7:46 AM EDT Narrative [facility] - 07/27/2025 9:23 AM EDT ----- ------- Name: Shawna Elizondo Age/Sex: 50/F : 1975 Unit#: [id number] Attend Dr: Jassi Nieto MD Re07/22/25 Status: DEP REF Location: .LNP Disch: ----- ------- SPEC : [id number] RECD: 07/23/250746 STATUS: CHAZ BOONE NUM: [id number] MARA: 07/22/25-1419 [facility] [address]: Jassi Nieto MD ENTERED: 07/23/25 SP TYPE: Pap Smr [facility] DR: Stefania Hunter DO ORDERED: Pap [...] and HPV testing will be performed at [facility] (CLIA #[id number]), [address] [place] [address]. Testing for HPV was performed using the [employer] system. The presence of HPV in the [...] detected. All professional services are performed by [facility] ([address] [place] [address]; ; CLIA #[id number]). The PAP Test is a screening procedure with the inherent possibility of both false negative and false positive results. Results should be interpreted in the context of historic and current clinical findings. Reliability of the PAP Test is enhanced by performing the test on a regular repetitive basis. CONTINUED ON NEXT PAGE ----- ------- Name: Shawna Elizondo Age/Sex: 50/F : 1975 Unit#: [id number] Attend Dr: Jassi Nieto MD Re07/22/25 Status: DEP REF Location: LNP Disch: ----- ------- SPEC : [id number] RECD: 07/23/25 STATUS: CHAZ BOONE NUM: [id number] MARA: 07/22/[address] [facility] [address]: Jassi Nieto MD ENTERED: 07/23/25 SP TYPE: Pap Smr OTHR DR: Stefania Hunter DO ORDERED: Pap Smear Copies To: Stefania Hunter DO [address] [address] Jassi Nieto MD [facility] [address] [place] [address] [place] [phone] ----- ------- Signed (signature on file) CAROLYNE Robles ([facility]) 07/27/2551 ----- ------- END OF REPORT us Generic External Data Provider LAB CYTOLOGY ORDOksana GARY Final Result [facility] [address] [place] [phone] * CT Cervical Spine w/o Contrast (06/05/2025 2:46 PM EDT) Anatomical Region Laterality Modality Spine, C-spine Computed Tomogra phy 06/05/2025 2:46 PM EDT Narrative 06/05/2025 3:37 PM EDT [address] [address] [address] Scan Report Signed Patient: Shawna Elizondo MR#: [id number] 64 : 1975 Acct:[id number] Age/Sex: 50 / F ADM Date: 06/05/25 Loc: HO.ED Attending Dr: Ordering Physician: Aiyana Lange CNP Date of Service: 06/05/25 Procedure(s): CT cervical spine wo IV con Accession Number(s): [id number] cc: Aiyana Lange CNP; Stefania Hunter DO Report Number: [id number]: Total DLP = 381.00 mGy-cm EXAMINATION: CT [...] 06/05/25 1534 DD/ 1446 TD/TT: 06/05/25 1501 Metal Grader: Procedure Note Donotuseinterpreter, Image - 06/05/[address] [place] [address] [address] Scan Report Signed Patient: Shawna ElizondoMR#: [id number] 62 : 1975Acct:[id number] Age/Sex: 50 / FADM Date: 06/05/25 Loc: HO.ED Attending Dr: Ordering Physician: Aiyana Lange CNP Date of Service: 06/05/25 Procedure(s): CT cervical spine wo IV con Accession Number(s): [id number] cc: Aiyana Lange CNP; Stefania Hunter DO Report Number: [id number]: Total DLP = 381.00 mGy-cm EXAMINATION: CT [...] 06/05/25 1534 DD/ 1446 TD/TT: 06/05/25 1501 Metal Grader: [facility] External Provider IMG CT PROCEDURES Final Result * Hepatitis C Antibody with Reflex to HCV, RNA, Quantitative, Real-Time PCR (04/06/2025 10:15 AM EDT) Hepatitis C Antibody Nonreactive Nonreactive [facility] Comment:Antibodies to HCV no t detected; does not exclude early acuteHCV infection. Blood Venous blood specimen / Unknown 04/06/2025 10:15 AM EDT 04/06/2025 11:23 AM EDT Stefania Hunter DO LAB BLOOD ORDERABLES Final R esult Performing Organization Address City/[facility]/ZIP Co de Phone Number [facility] [address] [place] [phone] * HIV-1/2 Antigen and Antibodies, Fourth Generation, with Reflexes (04/06/2025 10:15 AM EDT) [facility] HIV AB/AG Nonreactive Nonreactive [facility] Comment:HIV-1 p24 Ag and/or HIV-1/HIV-2 Ab not detected.A test result that is nonreactive does not exclude thepossibility of exposure to or infection with HIV-1 and/orHIV-2. Nonreactive results in this assay for individualswith prior exposure to HIV-1 and/or HIV-2 may be due toantigen and antibody levels that are below the limit ofdetection of this assay.The [employer] HIV Ag/Ab Combo assay result andsupplemental assay results should be interpreted inconjunction with the patient's clinical presentation,history and other laboratory results. If the results areinconsistent with clinical evidence, additional testing issuggested to confirm the result. Blood Venous blood specimen / Unknown 04/06/2025 10:15 AM EDT 04/06/2025 11:23 AM EDT Stefania Hunter DO LAB BLOOD ORDERABLES Final R esult Performing Organization Address [facility]/ZIP Co de Phone Number [facility] [address] [place] [address] [phone] * BI Mammogram Screening Tomosynthesis Bilateral (12/27/2023 1:20 PM EST) Anatomical Region Laterality Modality Breast Bilateral Mammography 12/27/2023 1:20 PM EST Narrative 01/20/2024 7:59 AM EDT [address] [place] [address] Mammography Report Signed Patient: Shawna Elizondo MR#: [id number] 64 : 1975 Acct:[id number] Age/Sex: 48 / F ADM Date: 12/27/23 Loc: HO.MAMMO Attending Dr: Stefania Hunter DO Ordering Physician: Stefania Hunter DO Results: 2B enign Findings Date of Service: 12/27/23 Follow Up: 1 Year From Orig inal Mammogram Procedure(s): MM tomosynthesis screening BI Accession Number(s): [id number] cc: Stefania Hunter DO EXAMINATION: MM SCREENING [...] in OV> 01/20/24 0756 DD/ 1320 TD/TT: Metal Grader: Procedure Note Donotuseinterpreter, Image - 01/21/[address] [place] [address] Mammography Report Signed Patient: Shawna ElizondoMR#: [id number] 62 : 1975Acct:[id number] Age/Sex: 48 / FADM Date: 12/27/23 Loc: HO.MAMMO Attending Dr: Stefania Hunter DO Ordering Physician: Stefania Hunterults: 2B enign Findings Date of Service: 12/27/23Follow Up: 1 Year From Orig inal Mammogram Procedure(s): MM tomosynthesis screening BI Accession Number(s): [id number] cc: Stefania Hunter DO EXAMINATION: MM SCREENING [...] in OV> 01/20/24 0756 DD/ 1320 TD/TT: Metal Grader: us Stefania Hunter DO IMG BI PROCEDURES Final Resu lt from Last 3 Months or Most Recently Relevant to Health Maintenance Insurance [employer] Care Teams Respiratory Technician Relationship Specialty Start Date End Date Stefania Hunter DO [address] [place] [address] PCP - General Family Medicine 11/05/18
--- OUTSIDE RECORDS SUMMARY | 2025-08-24 16:32 | XMS_ITS | Encounter Summary ---
Author Organization [employer] Address [address] [place] [address] [address] [place] [address] Care Team Providers Care Chief Clinical Officer Name Role Phone Stefania Hunter DO Primary Care Provider [phone] Reason for Visit * Reason Onset Date Comments Appointment Request 05/20/2024 Encounter Details Date Type Department Care Team ([facility] st Contact Info) Description 05/20/2024 Telephone [facility] [address] [place], [place] [phone] Stefania Hunter DO [address] [place] [address] Appointment Request Social History Tobacco Use Types [...] on filedocumented in this encounter Care Teams Chief Clinical Officer Relationship Specialty Start Date End Date Stefania Hunter DO [address] [place] [address] PCP - General Family Medicine 11/05/18 documented as of this encounter
== END 2025-08-24 14:24 | disposition home or self-care (01) ==
LOC: HO.HNS 13:26
PROVIDERS: PCP Family Medicine; Visit Provider Physician Assistant
DX: G56.00 Carpal tunnel syndrome, unspecified upper limb (principal)
CPT/HCPCS: 99213

== ENCOUNTER → 2025-09-03 17:37 | Outpatient (BNV) | payer OTHER, SELFPAY | PROVIDERS: PCP Family Medicine; Visit Provider Radiology Diagnostic Radiology | DX: M51.16 Intervertebral disc disorders with radiculopathy, lumbar region (principal) | CPT/HCPCS: 72148 ==

== ENCOUNTER 2025-09-03 17:39 | Outpatient (REF) | payer OTHER, SELFPAY ==
--- NOTE | ~2025-09-03 | MR_ITS ---
EXAMINATION: MR LUMBAR SPINE WITHOUT CONTRAST CLINICAL INFORMATION: Worsening low back pain with intermittent radiation to lower extremities. COMPARISON: None available. TECHNIQUE: MRI of the lumbar spine was obtained using routine sequences without contrast. FINDINGS: Last rib-bearing vertebra labeled T12. Mild bone marrow STIR signal in the inferior endplate of L5. Modic type I and type II endplate changes at L5-S1. Decreased intervertebral disc height and signal at L5-S1. Focal hyperintense T2 signal in the posterior intervertebral disc L5-S1 likely focal annular fissure. The alignment is normal. The conus medullaris ends at pedicle of L1 with normal signal. Degenerative changes in the sacroiliac joints. T11-12: No disc herniation. No neuroforamina stenosis. Small perineural cysts, bilaterally. T12-L1: No disc herniation. No neuroforamina stenosis. L1-2: No disc herniation. No neuroforamina stenosis. L2-3: Broad-based disc bulging. Facet joint hypertrophy. No central spinal canal or neuroforamina stenosis. L3-4: Broad-based disc bulging. Facet joint hypertrophy. No central spinal canal stenosis. Bilateral neuroforamina narrowing. L4-5: Broad-based disc bulging abutting the L5 nerve roots in the lateral recesses. Bilateral facet joint hypertrophy. Bilateral neuroforamina stenosis encroaching the L4 exiting nerve roots. L5-S1: Left subarticular broad-based disc herniation encroaching the left and to a lesser extent right S1 nerve roots. Bilateral facet joint hypertrophy. Left neuroforamina stenosis compressing the left L5 exiting nerve root. Right neuroforamina narrowing encroaching the right L5 nerve root. No prevertebral compartment hematoma, mass or fluid collection. Common bile duct measures 6 mm in maximum diameter. MR/MR lumbar spine wo con IMPRESSION: Left subarticular broad-based herniated disc at L5-S1 encroaching posterior compressing left S1 and to a lesser extent right S1 root and bilateral left neuroforamina stenosis L5-S1 compressing left L5 encroaching right L5 nerve root. Spondylosis L4-5 and to a lesser extent L3-4 encroaching the left L4 nerve roots. Electronically signed by: Bulmaro Best MD 09/04/2025 06:53 AM EDT
--- OUTSIDE RECORDS SUMMARY | 2025-09-03 18:39 | XMS_ITS | Encounter Summary ---
Author Organization [employer] Address [address] [place] [address] [address] [place] [address] Care Team Providers Care Pharmacy Resource Tech Name Role Phone Stefania Hunter DO Primary Care Provider [phone] Encounter Details Date Type Department Care Team (Late st Contact Info) Description 08/03/[address] [address] Stefania Hunter DO [address] [place] [address] Social History Tobacco Use Types Packs/Day Years [...] Department Care Team (Late Contact Info) Description 09/11/2025 11:00 AM EST Office Visit [address] [address] Stefania Hunter DO [address] [place], [place] [phone] documented as of this encounter Procedures Procedure Name Priority Date/Time Associated Diagnosis Comments PAP/HPV Routine 03/30/2021 documented in this encounter Results * Hm Pap Smear (03/30/2021) Pap Negative for intraephithelial lesion or malignancy Negative for intraephithelial lesion or malignancy, Other HPV Undetected us Historical Provider MD HEALTH MAINTENANCE Final Result documented in this encounter Visit Diagnoses Not on filedocumented in this encounter Care Teams Pharmacy Resource Tech Relationship Specialty Start Date End Date Stefania Hunter DO [address] [place] [address] PCP - General Family Medicine 11/05/18 documented as of this encounter
--- OUTSIDE RECORDS SUMMARY | 2025-09-03 18:40 | XMS_ITS | Clinical Summary ---
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) 08/19/2025 Travel 08/19/[address] [address] Stefania Hunter DO Chart Prep 08/14/[address] [address] Stefania Hunter DO Nurse Triage 07/22/2025 Orders Only GENERIC EXTERNAL DATA DEPARTMENT Provider, Generic External Data 06/29/[address] [address] Stefania Hunter DO Referral; Care Coordination 06/03/2025 Orders Only [address] [address] Stefania Hunter DO Bilateral carpal tunnel syndrome [...] 08/19/2025 12:04 PM EDT Plan of Treatment Upcoming Encounters Date Type Department Care Team (Late st Contact Info) Description 09/11/2025 11:00 AM EST Office Visit [facility] [address] [place], [place] [phone] Stefania Hunter DO [address] [place], [place] [phone] Health Maintenance Due Date Last Done Comments [...] exists Mammogram 12/27/2025 12/27/2023, 09/2 04/2022, 01/29/2019 Alcohol/Substance Use Screening 03/04/2026 03/04/2025 Depression [...] PM EDT Narrative 08/19/2025 3:38 PM EDT [address] [address] XRay Report Signed Patient: Shawna Elizondo MR#: [id number] 62 : 1975 Acct:[id number] Age/Sex: 50 / F ADM Date: 08/19/25 Loc: HO.HHCX Attending Dr: Stefania Hunter DO Ordering Physician: Stefania Hunter DO Date of Service: 08/19/25 Procedure(s): XR sacrum coccyx min 2V Accession Number(s): [id number] cc: Stefania Hunter DO Reason for Exam: [...] Art Darling MD 08/19/2025 03:35 PM EDT RP Dictated By: Art Darling MD Signed By: <Electronically signed by Art Darling MD in OV> 08/19/25 1535 DD/ 1518 TD/TT: 08/19/25 1520 Spline Rolling Machine Job Setter: ELLY Procedure Note Donotuseinterpreter, Image - 08/19/[address] [address] XRay Report Signed Patient: Shawna ElizondoMR#: [id number] 62 : 1975Acct:[id number] Age/Sex: 50 / FADM Date: 08/19/25 [facility]: Stefania Hunter DO Ordering Physician: Stefania Hunter DO Date of Service: 08/19/25 Procedure(s): XR sacrum coccyx min 2V Accession Number(s): [id number] cc: Stefania Hunter DO Reason for Exam: [...] Art Darling MD 08/19/2025 03:35 PM EDT RP Dictated By: Art Darling MD Signed By: <Electronically signed by Art Darling MD in OV> 08/19/25 1535 DD/ 1518 TD/TT: 08/19/25 1520 Spline Rolling Machine Job Setter: ELLY us Stefania Hunter DO IMG XR PROCEDURES Final Resu lt * MR Cervical Spine w/o Contrast (08/11/2025 6:28 PM EDT) Anatomical Region Laterality Modality Spine, C-spine Magnetic Resonan ce 08/11/2025 6:28 PM EDT Narrative 08/12/2025 7:29 AM EDT [address] [address] Magnetic Resonance Report Signed Patient: Shawna Elizondo MR#: [id number] 62 : 1975 Acct:[id number] Age/Sex: 50 / F ADM Date: 08/11/25 Loc: HO.MRI Attending Dr: Pio STRICKLAND Ordering Physician: Pio Diamond Date of Service: 08/11/25 Procedure(s): MR cervical spine wo con Accession Number(s): [id number] cc: Stefania Hunter DO; Pio Diamond Reason for Exam: M54.12 - Radiculopathy, cervical region Workstation: [id number] EXAMINATION: MR CERVICAL SPINE WITHOUT IV CONTRAST [...] OV> 08/12/25725 DD/ 27 TD/TT: 08/11/25 1847 Spline Rolling Machine Job Setter: Procedure Note Donotuseinterpreter, Image - 08/12/2025 [place] [address] Magnetic Resonance Report Signed Patient: Shawna Elizondo#: [id number] 62 : 1975Acct:[id number] Age/Sex: 50 / FADM Date: 08/11/25 Loc: HO.MRI Attending Dr: Pio STRICKLAND Ordering Physician: Pio Diamond Date of Service: 08/11/25 Procedure(s): MR cervical spine wo con Accession Number(s): [id number] cc: Stefania Hunter DO; Pio Diamond Reason for Exam: M54.12 - Radiculopathy, cervical region EXAMINATION: MR CERVICAL SPINE WITHOUT IV CONTRAST [...] MD Signed By: <Electronically signed by Nba Barecnas MD in OV> 08/12/25 0726 DD/ 1828 TD/TT: 08/11/25 1847 Spline Rolling Machine Job Setter: us [facility] External Provider IMG MRI PROCEDURES Final Result * XR Lumbar Spine Complete 4+ Views (07/27/2025 2:10 PM EDT) Anatomical Region Laterality Modality Spine, L-spine Radiographic Georgette ging 07/27/2025 2:10 PM EDT Narrative 07/27/2025 2:46 PM EDT [address] [place] [address] XRay Report Signed Patient: Shawna Elizondo MR#: [id number] 62 : 1975 Acct:[id number] Age/Sex: 50 / F ADM Date: 07/27/25 Loc: [facility] Attending Dr: Moriah CASTELLANOS Ordering Physician: Moriah Schwartz Date of Service: 07/27/25 Procedure(s): XR lumbar spine 4V min Accession Number(s): [id number] cc: Moriah Schwartz; Stefania Hunter DO Reason [...] 07/27/25 1443 DD/ 1410 TD/TT: 07/27/25 1426 Spline Rolling Machine Job Setter: Procedure Note Donotuseinterpreter, Image - 07/27/[address] [address] XRay Report Signed Patient: Shawna ElizondoMR#: [id number] 62 : 1975Acct:[id number] Age/Sex: 50 / FADM Date: 07/27/25 Loc: HO.XRAY Attending Dr: Moriah CASTELLANOS Ordering Physician: Moriah Schwartz Date of Service: 07/27/25 Procedure(s): XR lumbar spine 4V min Accession Number(s): [id number] cc: Moriah Schwartz; Stefania Hunter DO Reason [...] 07/27/25 1443 DD/ 1410 TD/TT: 07/27/25 1426 Spline Rolling Machine Job Setter: [facility] External Provider IMG XR PROCEDURES Final Result * HPV DNA, Low/High Risk (07/22/2025 2:19 PM EDT) HPV High Risk Negative Negative [facility] HPV Genotype 16 Negative Negative [facility] HPV Genotype 18 Negative Negative [facility] Comment:HPV testing performe d at [facility] (CLIA#[id number]), [address] [place] [address].Testing for HPV was performed using the Claudio VIOLET 6800system. The presence of HPV in the female [...] Provider LAB BLOOD ORDERAB LES Final Result [facility] [address] [place] [phone] * Pap Smear (07/22/2025 2:19 PM EDT) 07/22/2025 2:19 PM EDT 07/23/2025 7:46 AM EDT Narrative [facility] - 07/27/2025 9:23 AM EDT ----- ------- Name: ElizondoShawna Age/Sex: 50/F : 1975 Unit#: [id number] Attend Dr: Jassi Nieto MD Re07/22/25 Status: DEP REF Location: HO.LNP Disch: ----- ------- SPEC : [id number] RECD: 07/23/25 STATUS: CHAZ BOONE NUM: [id number] MARA: 07/22/259 [facility] [address]: Jassi Nieto MD ENTERED: 07/23/25 [...] and HPV testing will be performed at [facility] (CLIA #[id number]), [address] [place] [address]. Testing for HPV was performed using the Claudio VIOLET 6800 system. The presence of HPV in [...] detected. All professional services are performed by [facility] ([address] [place] [address]; ; CLIA #[id number]). The PAP Test is a screening procedure with the inherent possibility of both false negative and false positive results. Results should be interpreted in the context of historic and current clinical findings. Reliability of the PAP Test is enhanced by performing the test on a regular repetitive basis. CONTINUED ON NEXT PAGE ----- ------- Name: Shawna Elizondo Age/Sex: 50/F : 1975 Unit#: [id number] Attend Dr: Jassi Nieto MD Re07/22/25 Status: DEP REF Location: HO.LNP Disch: ----- ------- SPEC : [id number] RECD: 07/23/25 STATUS: CHAZ PAOLO NUM: [id number] MARA: 07/22/25-14[address] [facility] [address]: Jassi Nieto MD ENTERED: 07/23/25 SP TYPE: Pap Smr OTHR DR: Stefania Hunter DO ORDERED: Pap Smear Copies To: Stefania Hunter DO [address] [address] Jassi Nieto MD [facility] [address] [place] [address] Drive [address] [place] [phone] ----- ------- Signed (signature on file) CAROLYNE Robles ([facility]) 07/27/2527 ----- ------- END OF REPORT us Generic External Data Provider LAB CYTOLOGY GARRET GARY Final Result [facility] [address] [place] [phone] * CT Cervical Spine w/o Contrast (06/05/2025 2:46 PM EDT) Anatomical Region Laterality Modality Spine, C-spine Computed Tomogra phy 06/05/2025 2:46 PM EDT Narrative 06/05/2025 3:37 PM EDT [address] [address] [address] Scan Report Signed Patient: Shawna Elizondo MR#: [id number] 62 : 1975 Acct:[id number] Age/Sex: 50 / F ADM Date: 06/05/25 Loc: HO.ED Attending Dr: Ordering Physician: Aiyana Lange CNP Date of Service: 06/05/25 Procedure(s): CT cervical spine wo IV con Accession Number(s): [id number] cc: Aiyana Lange CNP; Stefania Hunter DO Report Number: [id number]: Total DLP = 381.00 mGy-cm EXAMINATION: CT [...] 06/05/25 1534 DD/ 1446 TD/TT: 06/05/25 1501 Spline Rolling Machine Job Setter: Procedure Note Donotuseinterpreter, Image - 06/05/[address] [address] [address] Scan Report Signed Patient: Shawna ElizondoMR#: [id number] 62 : 1975Acct:[id number] Age/Sex: 50 / FADM Date: 06/05/25 Loc: HO.ED Attending Dr: Ordering Physician: Aiyana Lange CNP Date of Service: 06/05/25 Procedure(s): CT cervical spine wo IV con Accession Number(s): [id number] cc: Aiyana Lange BEAD FILLER; Stefania Hunter Report Number: [id number]: Total DLP = 381.00 mGy-cm EXAMINATION: CT [...] 06/05/25 1534 DD/ 1446 TD/TT: 06/05/25 1501 Spline Rolling Machine Job Setter: [facility] External Provider IMG CT PROCEDURES Final Result * Hepatitis C Antibody with Reflex to HCV, RNA, Quantitative, Real-Time PCR (04/06/2025 10:15 AM EDT) [facility] Hepatitis C Antibody Nonreactive Nonreactive [facility] Comment:Antibodies to HCV no t detected; does not exclude early acuteHCV infection. Blood Venous blood specimen / Unknown 04/06/2025 10:15 AM EDT 04/06/2025 11:23 AM EDT Stefania Elsa LAB BLOOD ORDERABLES Final R esult Performing Organization Address [facility] de Phone Number [facility] [address] [place] [phone] * HIV-1/2 Antigen and Antibodies, Fourth Generation, with Reflexes (04/06/2025 10:15 AM EDT) [facility] HIV AB/AG Nonreactive Nonreactive [facility] Comment:HIV-1 p24 Ag and/or HIV-1/HIV-2 Ab not detected.A test result that is nonreactive does not exclude thepossibility of exposure to or infection with HIV-1 and/orHIV-2. Nonreactive results in this assay for individualswith prior exposure to HIV-1 and/or HIV-2 may be due toantigen and antibody levels that are below the limit ofdetection of this assay.[employer] HIV Ag/Ab Combo assay result andsupplemental assay results should be interpreted inconjunction with the patient's clinical presentation,history and other laboratory results. If the results areinconsistent with clinical evidence, additional testing issuggested to confirm the result. Blood Venous blood specimen / Unknown 04/06/2025 10:15 AM EDT 04/06/2025 11:23 AM EDT Stefaniarupesh Wencarolina LAB BLOOD ORDERABLES Final R esult Performing Organization Address [facility] Co de Phone Number [facility] [address] [place] [phone] * BI Mammogram Screening Tomosynthesis Bilateral (12/27/2023 1:20 PM EST) Anatomical Region Laterality Modality Breast Bilateral Mammography 12/27/2023 1:20 PM EST Narrative 01/20/2024 7:59 AM EDT [facility] [place] [address] Mammography Report Signed Patient: Shawna Elizondo MR#: [id number] 62 : 1975 Acct:[id number] Age/Sex: 48 / F ADM Date: 12/27/23 Loc: HO.MAMMO Attending Dr: Stefania Hunter DO Ordering Physician: Stefania Hunter DO Results: 2B enign Findings Date of Service: 12/27/23 Follow Up: 1 Year From Orig ina Mammogram Procedure(s): MM tomosynthesis screening BI Accession Number(s): [id number] cc: Stefanai Hunter DO EXAMINATION: MM SCREENING DIGITAL BREAST [...] in OV> 01/20/24 0756 DD/ 1320 TD/TT: Spline Rolling Machine Job Setter: Procedure Note Donotuseinterpreter, Image - 01/21/2024 [facility] [address] [place] [address] [place] [address] Mammography Report Signed Patient: Shawna ElizondoMR#: [id number] 62 : 1975Acct:[id number] Age/Sex: 48 / FADM Date: 12/27/23 Loc: HO.MAMMO Attending Dr: Stefania Hunter DO Ordering Physician: Stefania Hunterults: 2B enign Findings Date of Service: 12/27/23Follow Up: 1 Year From Orig inal Mammogram Procedure(s): MM tomosynthesis screening BI Accession Number(s): [id number] cc: Stefania Hunter DO EXAMINATION: MM SCREENING [...] in OV> 01/20/24 0756 DD/ 1320 TD/TT: Spline Rolling Machine Job Setter: Stefania Hunter DO IMG BI PROCEDURES Final Resu lt from Last 3 Months or Most Recently Relevant to Health Maintenance Insurance [employer] Care Teams Java Developer Architect Relationship Specialty Start Date End Date Stefania Hunter DO [address] [place] [address] PCP - General Family Medicine 11/05/18
--- OUTSIDE RECORDS SUMMARY | 2025-09-03 18:40 | XMS_ITS | Encounter Summary ---
Author Organization [employer] Address [address] [facility] 7t [place] [address] Care Team Providers Care Cutter Woodwind Reeds Name Role Phone Stefania Hunter DO Primary Care Provider [phone] Reason for Visit * Reason Onset Date Comments Nurse Triage 01/13/2025 Encounter Details Date Type Department Care Team (Late st Contact Info) Description 01/13/2025 Telephone [facility] [address] [place], [place] [phone] Stefania Hunter DO [address] [place] [address] Nurse Triage Social History Tobacco Use Types [...] acuity questions The caller accepted this outcome. [phone] malay documented in this encounter Plan of Treatment Upcoming Encounters Date Type Department Care Team (Late st Contact Info) Description 09/11/2025 11:00 AM EST Office Visit [facility] [address] [place] [address] Stefania Hunter DO [address] [place] [address] documented as of this encounter Visit Diagnoses Not on filedocumented in this encounter Care Teams Cutter Woodwind Reeds Relationship Specialty Start Date End Date Stefania Hunter DO [address] [place] [phone] PCP - General Family Medicine 11/05/18 documented as of this encounter
--- OUTSIDE RECORDS SUMMARY | 2025-09-03 18:40 | XMS_ITS | Encounter Summary ---
Author Organization [employer] Address [address] [place] [address] 7t [place] [address] Care Team Providers Care President Educational Institution Name Role Phone Stefania Hunter DO Primary Care Provider + [phone] Reason for Visit * Reason Onset Date Comments Appointment Request 11/08/2023 Encounter Details Date Type Department Care Team (Late Contact Info) Description 11/08/[address] [address] Stefania Hunter DO [address] [place], [place] [phone] Appointment Request Social History Tobacco Use Types [...] cancer as well. Please contact pt at [phone] documented in this encounter Plan of Treatment Upcoming Encounters Date Type Department Care Team (Late Contact Info) Description 09/11/2025 11:00 AM EST Office Visit [address] [address] Stefania Hunter DO [address] [place] [address] documented as of this encounter Visit Diagnoses Not on filedocumented in this encounter Care Teams President Educational Institution Relationship Specialty Start Date End Date Stefania Hunter DO [address] [place] [address] PCP - General Family Medicine 11/05/18 documented as of this encounter
--- OUTSIDE RECORDS SUMMARY | 2025-09-03 18:40 | XMS_ITS | Encounter Summary ---
Author Organization [employer] Address [address] [place] [address] [address] [place] [address] Care Team Providers Care Early Intervention School Psychologist Name Role Phone Stefania Hunter DO Primary Care Provider [phone] Reason for Visit * Reason Onset Date Comments Appointment Request 05/20/2024 Encounter Details Date Type Department Care Team (Late Contact Info) Description 05/20/[address] [phone] Stefania Hunter DO [address] [place], [place] [phone] Appointment Request Social History Tobacco Use Types [...] Description 09/11/2025 11:00 AM EST Office Visit [facility] [address] [place] [phone] Stefania Hunter DO [address] [place] [address] documented as of this encounter Visit Diagnoses Not on filedocumented in this encounter Care Teams Early Intervention School Psychologist Relationship Specialty Start Date End Date Stefania Hunter DO [address] [place] [address] PCP - General Family Medicine 11/05/18 documented as of this encounter
== END 2025-09-03 17:40 | disposition home or self-care (01) ==
LOC: HO.MRI 17:39
PROVIDERS: PCP Family Medicine; Visit Provider Family Medicine
DX: M54.41 Lumbago with sciatica, right side (principal); M54.42 Lumbago with sciatica, left side; G89.29 Other chronic pain
CPT/HCPCS: 72148

== ENCOUNTER 2025-09-21 10:00 | Outpatient (AMB) | payer OTHER, SELFPAY ==
[2025-09-21 10:02] VITALS: BP 131/79; PULSE 91; RESP 16; O2SAT 99; BMI 28.3
--- NOTE | 2025-09-21 10:02 | MHC.OFFVIS ---
Vital Signs 09/21/25 10:02 Height 5 ft 2 in Weight 155 lb BMI 28.3 BP 131/79 Blood Pressure Location Lt brachial Position Sitting Respiration 16 Pulse 91 Pulse Source Pulse Oximeter Pulse Oximetry (%) 99 Oxygen Delivery Method Room Air Intake Visit Reasons: CHRONIC BILATERAL LOW BACK PAIN Contract Administration Specialist Required: Yes Contract Administration Specialist Name: HERMAN Goodman Accompanied by: Daughter Allergies morphine (MORPHINE) Allergy (Intermediate, Verified 09/21/25 10:05) STOMACH UPSET, severe abd pain clarithromycin (From Biaxin) Allergy (Unknown, Verified 09/21/25 10:05) Headache metronidazole (Flagyl) Allergy (Unknown, Verified 09/21/25 10:05) Fainting spell, dizziness, headache Penicillins (PENICILLINS) Allergy (Unknown, Verified 09/21/25 10:05) HIVES Medication List - Last Reconciled 09/21/25 by JASMIN Slade baclofen 10 mg PO BID PRN diclofenac sodium 1% (Arthritis Pain (diclofenac)) 2 grams topical QID gabapentin 300 mg PO BEDTIME hydrocortisone 1% (Cortisone (hydrocortisone)) 1 appl topical TID PRN naproxen 500 mg PO BID HPI Comments Details: The patient is a 50-year-old female presenting with severe low back pain and associated buttock and leg pain. The back pain was noted to be more severe than the neck pain previously experienced. The patient reports that the pain initially affected the left leg but later involved both legs, causing a sensation of heaviness, weakness with numbness and tingling. An MRI revealed an L5-S1 disc herniation compressing the left S1 nerve root and, to a lesser extent, the right S1 nerve root. The patient experiences pain when bending down or walking, lifting, twisting, work and house chores and the pain is exacerbated by these activities. The patient has been prescribed medications including baclofen, gabapentin, and naproxen for pain management. Physical therapy was recommended, with sessions scheduled specifically for back pain. Unfortunately, patient has not yet started physical therapy for the back pain, which is necessary for further evaluation and management. Patient reports her radicular symptoms are severe and prevent her to participate in physical therapy at this time. She is interested to undergo therapeutic PATRIC prior to starting PT. - Onset: Initially affected the left leg, later involved both legs. - Quality: Sensation of heaviness in the legs, numbness, tingling, aching, shooting, stabbing, sharp, sore, tight - Location: Back, buttocks and both legs, more severe on the left side. - Exacerbating factors: Bending down, lifting, twisting and walking increase pain. - Affect: Pain impacts daily activities and house and work-related tasks. - Analgesia: Current medications include baclofen, gabapentin, and naproxen. - Adverse Effects: Concerns about potential swelling with steroid injections reported by her friend, but denies personal history of steroids allergy. - Activities of Daily Living: Pain interferes with bending, lifting and walking. - Aberrant Drug Related Behaviors: None reported. PRIOR: The patient is a 50-year-old female presenting for follow up and discuss recent cervical spine MRI and lumbar xray results. The MRI showed straightening of normal cervical lordosis and mild degenerative disc disease at C5-C6 and C6-C7, with a posterior disc osteophyte complex at C5-C6 causing mild to moderate central spinal stenosis and left neural foraminal narrowing. The patient reports minimal neck pain currently, with more significant discomfort in the lower back area, especially when moving to the sides or bending over. She experiences pain radiating down to her legs, exacerbated by prolonged standing or sitting, and has not engaged in physical therapy for her back. The patient's lumbar spine x-ray revealed arthritis and disc degeneration, most severe at the L5-S1 level. 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 Denies any recent cough, cold, infection, fever or any significant changes in medical history since last office visit. PRIOR: The patient is a 50-year-old [place] speaking female presenting with cervical radiculopathy. The patient reports a history of neck pain that radiates into her left upper extremity, which has been ongoing for multiple years and has been worsening over the past year. She denies any inciting events, trauma, or falls related to this pain. The pain is described as pressure, throbbing and radiating, with associated hand numbness and cramping pain in her hands, particularly at night. 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 She has attempted [id number] medications and is currently on gabapentin, with minimal relief. She has also tried physical therapy, which she continues at home, but reports no significant improvement in daily functioning. Her medical history includes bilateral carpal tunnel syndrome, depression, neuropathy, and asthma. She has previously taken prednisone with minimal relief and is currently on baclofen and gabapentin. A cervical CT scan shows multilevel degenerative changes with straightening of the normal cervical lordosis and anterior osteophyte bridging at C5-C6 and C6-C7. Cervical spondylosis C5-6 and to a lesser extent C3-4 and C6-7 levels resulting in central spinal canal and left neuroforamina and stenosis and C5-6. She is awaiting to be scheduled for cervical spine MRI. Denies prior spine injury or injections. - Onset: Pain has been present for multiple years, worsening over time. - Quality: Described as pressure, throbbing, aching and radiating; numbness and tingling left shoulder and both hands - Location: Originates in the neck, radiates to the left shoulder and arms, near the wrists. - Radiation: Pain radiates down the left upper extremity. - Exacerbating factors: Activities such as texting, looking down to use phone, cooking, washing dishes - Relieving factors: None reported. - Interference: Pain interferes with sleep and daily activities. - Affect: Pain impacts sleep and daily functioning. - Analgesia: Currently using gabapentin and baclofen with minimal relief. - Adverse Effects: None reported. - Activities of Daily Living: Pain affects ability to perform daily tasks and sleep. - Aberrant Drug Related Behaviors: None reported. Oswestry Neck Pain Disability Score=19 PFSH Medical History Vitamin D deficiency Recurrent major depression Fibromyositis Cobalamin deficiency Chronic constipation H. pylori infection Cholecystectomy planned Anemia Surgical History H/O breast biopsy History of cystoscopy (03/2012) History of esophagogastroduodenoscopy (EGD) (05/2014) Hx of appendectomy (07/2011) Tubal ligation status Hx of section Family History Mother HTN (hypertension) Father Diabetes HTN (hypertension) Kidney disease Heart disease Maternal Aunt Skin cancer Social History Household Members: Spouse Housing: House Alcohol intake: former Patient Tobacco Use Status: Former Tobacco user Tobacco use type: Cigarette Cigarettes Per Day: 10 Years Smoked: 8 Current occupational status: employed Current occupation: [employer] Sexual orientation: Straight/Heterosexual Gender identity: Female Female Reproductive History Menstrual Age of Menarche: 10 Review of Systems Const Details: - Musculoskeletal: Reports severe back pain, buttocks pain and leg pain, exacerbated by bending, lifting and walking. All systems reviewed & are unremarkable except as noted in HPI and below Physical Exam General: Appears afebrile. Alert and oriented. Mood and affect appropriate. Follows and participates in conversation appropriately. Respiratory effort is unlabored. No cough. Able to transition from sit to stand unassisted. Ambulates with bilaterally normal heel strike and toe off, reports increased back and bilateral leg pain with toe standing. General: Yes no CVA tenderness Back/Spine/Pelvis Other: Limited lumbar ROM due to pain. Lumbar flexion and extension reproduces moderate to severe pain. Demonstrates 5/5 right and 4/5 left strength of quadriceps bilaterally as well as flexion/dorsiflexion of bilateral feet against resistance. 2+ pedal pulses bilaterally. Straight leg rise with dorsiflexion positive bilaterally. +2 patellar and +1 achilles reflexes bilaterally. Facet loading test positive bilaterally. Khoa?s, Gaenslen, Pelvic compression and Stinchfield tests are positive bilaterally. No groin pain with I/E hip rotations. Valsalva maneuver negative. Back: no CVA tenderness Cervical Spine: No Lhermitte's sign positive, loss of normal cervical lordosis, cervical muscular tenderness, pain with cervical ROM, No Cervical spine scars present, cervical spasm, No Cervical spine tenderness and No step off deformity Thoracic/Lumbar Spine: thoracic and lumbar spine normal to inspection, No Thoracic/lumbar spine scar(s), Lasegue's sign positive bilateral and localized, pain with thoraco-lumbar ROM, paraspinal muscle tenderness bilaterally, thoraco-lumbar ROM limited, No thoracic spinal tenderness and lumbar spinal tenderness (L4-S1) Pelvis: buttock tenderness bilaterally Sacroiliac joints: bilaterally tender to palpation Extrem General: Yes capillary refill normal, Yes no clubbing, cyanosis or edema and Yes no calf tenderness Results Reviewed Results Reviewed: MR LUMBAR SPINE WITHOUT CONTRAST 09/03/25 CLINICAL INFORMATION: Worsening low back pain with intermittent radiation to lower extremities. COMPARISON: None available. TECHNIQUE: MRI of the lumbar spine was obtained using routine sequences without contrast. FINDINGS: Last rib-bearing vertebra labeled T12. Mild bone marrow STIR signal in the inferior endplate of L5. Modic type I and type II endplate changes at L5-S1. Decreased intervertebral disc height and signal at L5-S1. Focal hyperintense T2 signal in the posterior intervertebral disc L5-S1 likely focal annular fissure. The alignment is normal. The conus medullaris ends at pedicle of L1 with normal signal. Degenerative changes in the sacroiliac joints. T11-12: No disc herniation. No neuroforamina stenosis. Small perineural cysts, bilaterally. T12-L1: No disc herniation. No neuroforamina stenosis. L1-2: No disc herniation. No neuroforamina stenosis. L2-3: Broad-based disc bulging. Facet joint hypertrophy. No central spinal canal or neuroforamina stenosis. L3-4: Broad-based disc bulging. Facet joint hypertrophy. No central spinal canal stenosis. Bilateral neuroforamina narrowing. L4-5: Broad-based disc bulging abutting the L5 nerve roots in the lateral recesses. Bilateral facet joint hypertrophy. Bilateral neuroforamina stenosis encroaching the L4 exiting nerve roots. L5-S1: Left subarticular broad-based disc herniation encroaching the left and to a lesser extent right S1 nerve roots. Bilateral facet joint hypertrophy. Left neuroforamina stenosis compressing the left L5 exiting nerve root. Right neuroforamina narrowing encroaching the right L5 nerve root. No prevertebral compartment hematoma, mass or fluid collection. Common bile duct measures 6 mm in maximum diameter. IMPRESSION: Left subarticular broad-based herniated disc at L5-S1 encroaching posterior compressing left S1 and to a lesser extent right S1 root and bilateral left neuroforamina stenosis L5-S1 compressing left L5 encroaching right L5 nerve root. Spondylosis L4-5 and to a lesser extent L3-4 encroaching the left L4 nerve roots. XR SACRUM AND COCCYX 08/19/25 CLINICAL INFORMATION: severe mid sacral pain COMPARISON: None available. TECHNIQUE: 2 views of the sacrum and 2 views of the coccyx were obtained. FINDINGS: No visible acute fracture or malalignment. Joint spaces are maintained. Mild symphysis pubis degeneration. SI joints are symmetric. No suspicious bony lesions. No abnormal soft tissue calcification. Metallic keira projected anterior to the L5 vertebral body. IMPRESSION: No radiographic evidence of acute osseous findings. Clinically correlate. Further CT or MRI evaluation as clinically indicated. XR lumbar spine 4V min 07/27/25 TECHNIQUE: AP, lateral, lateral spot, bilateral oblique view x-rays Prior: February 15, 2021 Findings: There are clips in the right mid to lower abdomen. There are also right upper quadrant clips from prior cholecystectomy. Punctate calcific densities in the pelvis are consistent with phleboliths. There are 5 nonrib-bearing lumbar segments. Since the prior, there is mild disc space at L5-S1 with vacuum phenomena. There is also facet sclerosis and osteophytes at L4-5 and L5-S1, stable to increased. Vertebral body height and alignment is preserved. IMPRESSION: L5-S1 demonstrates moderate degenerative disc disease, increased since the prior. Assessment & Plan Assessment & Plan (1) Chronic low back pain: Code(s): M54.50 - Low back pain, unspecified; G89.29 - Other chronic pain Category: Medical (2) Lumbosacral spondylosis: Code(s): M47.817 - Spondylosis without myelopathy or radiculopathy, lumbosacral region Category: Medical (3) Lumbar degenerative disc disease: Code(s): M51.369 - Other intervertebral disc degeneration, lumbar region without mention of lumbar back pain or lower extremity pain Category: Medical (4) Lumbar radiculopathy: Code(s): M54.16 - Radiculopathy, lumbar region Category: Medical Plan The plan includes administering a therapeutic epidural steroid injection to alleviate the radiculopathy symptoms. If the injection does not provide relief, a referral to a Neurosurgeon will be considered. Physical therapy is recommended to address radicular and axial low back pain, which patient prefers following the injection. Schedule Bilateral L5-S1 TFESI with local and fluoroscopy for radicular symptoms. Expectations, risks and benefits were reviewed. Patient is aware she will be contacted to schedule this procedure. The patient is advised to continue current medications, including baclofen, gabapentin, and naproxen, to manage pain symptoms. All questions and concerns have been answered and patient agreed with the treatment plan. Follow up after injection and sooner as needed. Patient was informed and verbally consented to the use of an ambient scribe for clinic note documentation during this visit. Medications: Changed From gabapentin 300 mg PO BEDTIME G89.29 - Other chronic pain, M54.16 - Radiculopathy, lumbar region, M54.50 - Low back pain, unspecified To gabapentin 300 mg PO BEDTIME 90 caps 0RF pain 90 days G89.29 - Other chronic pain, M54.16 - Radiculopathy, lumbar region, M54.50 - Low back pain, unspecified Coding Level of Care Code Est Pt Level 4 (92993) Complex EM visit Add On G2211 Diagnoses Chronic low back pain M54.50; G89.29 Lumbosacral spondylosis M47.817 Lumbar degenerative disc disease M51.369 Lumbar radiculopathy M54.16
== END 2025-09-21 10:20 | disposition home or self-care (01) ==
PROVIDERS: PCP Family Medicine; Visit Provider Nurse Practitioner Family
DX: M54.50 Low back pain, unspecified (principal); G89.29 Other chronic pain; M47.817 Spondylosis without myelopathy or radiculopathy, lumbosacral region; M51.369 Other intervertebral disc degeneration, lumbar region without mention of lumbar back pain or lower extremity pain; M54.16 Radiculopathy, lumbar region
CPT/HCPCS: 99214